=== PATIENT | male | born 1970 | race Two or more races ===

== ENCOUNTER → 2021-10-16 13:47 | Outpatient (REF) | payer OTHER, SELFPAY | LOC: HO.SL 13:47 | PROVIDERS: PCP Nurse Practitioner Family; Visit Provider Nurse Practitioner Family | DX: G47.30 Sleep apnea, unspecified (principal) | CPT/HCPCS: 95806 ==

== ENCOUNTER 2021-10-28 09:29 | Outpatient (REF) | payer OTHER, SELFPAY ==
[2021-10-28 09:54] LABS: MANUAL DIFF FLAG NO
[2021-10-28 10:30] LABS: Basophils Absolute Auto 0.1 X10*3/uL (0.0-0.2); Basophils Percent Auto 1.2 % (0-2); Eosinophils Absolute Auto 0.4 X10*3/uL (0.0-0.4); Eosinophils Percent Auto 4.9 % (0-4); Hematocrit 51.4 % (42.0-52.0); Hemoglobin 17.7 g/dl (14.0-18.0); Imm Gran Abs Auto 0.03 X10*3/uL (0.00-0.03); Imm Gran Pct Auto 0.4 % (0.0-0.4); Lymphocytes Absolute Auto 2.3 X10*3/uL (1.2-4.9); Mean Corpuscular HGB Conc 34.4 g/dl (31.0-36.0); Mean Corpuscular Hemoglobin 32.5 pg (27.0-33.0); Mean Corpuscular Volume 94.5 fL (80.0-98.0); Mean Platelet Volume 10.5 fL (9.4-12.4); Monocytes Absolute Auto 0.6 X10*3/uL (0.1-1.2); Monocytes Percent Auto 8.3 % (2-11); Neutrophils Absolute Auto 4.2 x10*3/uL (2.0-8.3); Neutrophils Percent Auto 55.2 % (45-73); Platelet Count 256 X10*3/uL (160-400); Red Blood Count 5.44 X10*6/uL (4.60-5.80); Red Cell Distribution Width 12.4 % (11.0-16.0); White Blood Count 7.6 X10*3/uL (4.8-10.8)
[2021-10-28 11:04] LABS: Alanine Aminotransferase 87 U/L (0-40); Albumin Level 4.5 g/dL (3.5-5.0); Alkaline Phosphatase 56 U/L (39-117); Anion Gap 13 (12-20); Aspartate Amino Transferase 49 U/L (5-37); Bilirubin Total 1.3 mg/dL (0.0-1.0); Blood Urea Nitrogen 17 mg/dL (9-16); Calcium 9.4 mg/dL (8.4-10.2); Carbon Dioxide 30 mmol/L (22-29); Chloride 105 mmol/L (96-108); Cholesterol 199 mg/dL; Estimated Glomerular Filt Rate 51; Glucose Fasting 102 mg/dL (60-99); HDL Cholesterol 65 mg/dL; LDL Cholesterol Calculated 116 mg/dl; Potassium 4.9 mmol/L (3.3-5.1); Sodium 143 mmol/L (135-145); Total Protein 7.7 g/dL (6.5-8.0); Triglycerides 91 mg/dL
[2021-10-28 11:13] LABS: Prostate Specific Antigen Scr 0.98 ng/mL (<0.05-4.0)
[2021-10-28 11:48] LABS: Free T4 (Free Thyroxine) 0.51 ng/dL (0.71-1.85)
== END 2021-10-28 09:30 | disposition home or self-care (01) ==
LOC: HO.LAB 09:29
PROVIDERS: PCP Internal Medicine; Visit Provider Nurse Practitioner Family
DX: I10 Essential (primary) hypertension (principal); E03.9 Hypothyroidism, unspecified; E78.00 Pure hypercholesterolemia, unspecified; R94.5 Abnormal results of liver function studies; K21.9 Gastro-esophageal reflux disease without esophagitis; Z12.5 Encounter for screening for malignant neoplasm of prostate
CPT/HCPCS: 36415; 80053; 80061; 84153; 84439; 84443; 85025

== ENCOUNTER → 2021-10-30 09:56 | Outpatient (BNVA) | payer OTHER, SELFPAY | PROVIDERS: PCP Nurse Practitioner Family; Visit Provider Internal Medicine | DX: Z13.89 Encounter for screening for other disorder (principal) ==

== ENCOUNTER 2021-12-07 21:19 | Emergency (ER) | payer OTHER, SELFPAY ==
--- NOTE | ~2021-12-07 | XR_ITS ---
EXAMINATION: XR FOOT, RIGHT CLINICAL INFORMATION: Puncture wound COMPARISON: None TECHNIQUE: AP, lateral, and oblique views of the right foot. FINDINGS: The bones and soft tissues are normal. No fracture. Alignment is anatomic. Joint spaces are maintained. XR/XR foot RT 2V IMPRESSION: No radiopaque foreign body or fracture.
[2021-12-07 21:22] VITALS: BP 186/119; PULSE 100; RESP 19; TEMP 36.6; O2SAT 98; BMI 29.0
--- NOTE | 2021-12-07 21:54 | ED.WOUNDLAC ---
HPI - Wound/Laceration General Chief Complaint: Wound/Laceration Stated Complaint: stepped on nail Time Seen by Provider: 12/07/21 21:42 Source: patient Mode of arrival: ambulatory Limitations: no limitations History of Present Illness HPI narrative: 51-year-old male presents with nail puncture wound to the bottom of the right foot. Onset (ago): hour(s) (Within the hour of arrival) Extremity Location: right: foot Place: outdoors Patient tetanus UTD: No Context: accidental Associated symptoms: pain Related Data Previous Rx's Medication Instructions Recorded hydrocortisone 2.5 % topical cream 1 appl TOPICAL BID PRN #30 g 09/02/21 losartan 50 mg-hydrochlorothiazide 1 tab PO DAILY #90 tab 09/02/21 12.5 mg tablet cetirizine 10 mg tablet 10 mg PO DAILY #90 tab 10/08/21 famotidine 20 mg tablet 20 mg PO DAILY #90 tab 10/08/21 metoprolol tartrate 100 mg tablet 100 mg PO BID 90 Days #180 tab 10/13/21 levothyroxine 125 mcg capsule 125 mcg PO DAILY #30 cap 12/01/21 levofloxacin 750 mg tablet 750 mg PO Q24H 6 Days #6 tab 12/07/21 Allergies Allergy/AdvReac Type Severity Reaction Status Date / Time furosemide [From Lasix] Allergy Intermediate Rash Verified 10/30/21 10:23 Review of Systems Review of Systems: Constitutional: No Fever, No Chills ENT/Mouth: No Ear Pain, No Hoarseness, No sore throat Eyes: No Eye Pain, No Swelling, No Redness, No Foreign Body Cardiovascular: No Chest Pain, No SOB Respiratory: No Cough, No Dyspnea Gastrointestinal: No Nausea, No Vomiting, No Diarrhea, No abdominal Pain Genitourinary: No Dysuria, No Hematuria Musculoskeletal: positive right foot puncture wound and pain, No Myalgias, No Joint Swelling Skin: No Skin lacerations, No rash Neuro: No Weakness, No Numbness, No Paresthesias, No Loss of Consciousness, No Dizziness, No Headache Psych: No Anxiety/Panic, No Depression Heme/Lymph: no easy bruising, no Lymphadenopathy Endocrine: No Polyuria, No Polydipsia Yes all other systems are reviewed and are negative PMFSH Past Medical History Attestation statement: The following information was validated with the patient. Source: old records reviewed Medical History HTN (hypertension) Hypothyroid Nocturnal hypoxemia Obesity (BMI 30-39.9) AMANDEEP (obstructive sleep apnea) Family History Family History Mother Breast cancer Father Heart attack CKD (chronic kidney disease) requiring chronic dialysis Brother No problems noted. Sister No problems noted. Sister No problems noted. Daughter No problems noted. Daughter No problems noted. Social History Social History Housing: House Patient Tobacco Use Status: Never used Tobacco e-Cigarette/Vaping Use: Never Used Second Hand Smoke Exposure: No Advance Directives: No Advance Directives Information Provided: No Current occupational status: employed Physical Exam Vital Signs: Vital Signs: Last Vital Signs Temp 98 F 12/07/21 21: Pulse 100 12/07/21: Resp 19 12/07/21: BP 186/119 H 12/07/21 21: Pulse Ox 98 12/07/21 21:22 BMI result Body Mass Index 29.0 Course Course Course Narrative: 51-year-old male presents with puncture wound to the plantar surface of his right foot. Puncture was a nail that went through his shoe. Will order x-rays update Tdap vaccine order EKG . QT interval is normal, will prescribe Levaquin for Pseudomonas coverage. Wound irrigated with copious amounts of normal saline, cleaned with Betadine. Patient verbalized understanding of and agrees to plan of care to discharge home. Verbalized understanding of signs and symptoms indicating need for emergent intervention MDM - Wound/Laceration MDM Narrative Medical decision making narrative: Plantar puncture wound Medical Records Attestation: I reviewed the patient's medical records. Imaging Data Foot x-ray: Attestation: I personally reviewed and interpreted this imaging study as follows: Radiologist's impression: EXAMINATION: XR FOOT, RIGHT CLINICAL INFORMATION: Puncture wound? COMPARISON: None? TECHNIQUE: AP, lateral, and oblique views of the right foot. FINDINGS: The bones and soft tissues are normal. No fracture. Alignment is anatomic. Joint spaces are maintained.? XR/XR foot RT 2V IMPRESSION: No radiopaque foreign body or fracture. ECG Data Attestation: I personally reviewed and interpreted this ECG as follows: ECG interpretation date: 12/07/21 ECG interpretation time: 22:32 Prior ECG tracings: available for review Interpretation: Vent. rate 95 BPM CA interval 144 ms QRS duration 74 ms QT/QTc 370/464 ms P-R-T axes 35 25 65 Normal sinus rhythm Normal ECG No previous ECGs available Discharge Plan Discharge Clinical Impression: Puncture wound of plantar aspect of foot Patient Disposition: Home, Self-Care Instructions: Puncture Wound in the Foot (ED) Additional Instructions: You were evaluated for a nail puncture to the bottom of your right foot. Please take Levaquin 750 mg for the next 6 days. Start this medication on 12/08/2021. We gave your 1st dose in the emergency department. We updated your Tdap vaccine today. Monitor for signs and symptoms of infection. If you notice signs and symptoms of infection please seek medical attention immediately. Thank you for choosing this emergency department for evaluation. Please follow-up with primary care physician as needed. Return to the emergency department for any new, concerning, or worsening symptoms. Prescriptions: New levofloxacin 750 mg tablet 750 mg PO Q24H 6 Days Qty: 6 0RF No Action cetirizine 10 mg tablet 10 mg PO DAILY Qty: 90 1RF famotidine 20 mg tablet 20 mg PO DAILY Qty: 90 1RF metoprolol tartrate 100 mg tablet 100 mg PO BID 90 Days Qty: 180 1RF levothyroxine 125 mcg capsule 125 mcg PO DAILY Qty: 30 0RF losartan-hydrochlorothiazide 50-12.5 mg tablet 1 tab PO DAILY Qty: 90 1RF hydrocortisone 2.5 % cream 1 appl topical BID PRN (Reason: rash) Qty: 30 0RF Interventions: ED Discharge Assessment Last Done: 12/07/21 23:15 Discharge Date/Time: 12/07/21 23:16
--- NOTE | 2021-12-07 21:57 | ECG_ITS ---
Test Reason : DIAGNOSTIC Blood Pressure : / mmHG Vent. Rate : 095 BPM Atrial Rate : 095 BPM P-R Int : 144 ms QRS Dur : 074 ms QT Int : 370 ms P-R-T Axes : 035 025 065 degrees QTc Int : 464 ms Normal sinus rhythm Normal ECG No previous ECGs available Referred By: Nevaeh Garcia Electronically Signed By:FELIPE WYNN MD
[2021-12-07] MEDS: levoFLOXacin 750 MG TABLET PO (22:53)
[2021-12-07] MEDS: Diphth,Pertus(ACell),Tet Adult 0.5 ML SYRINGE IM (22:54)
== END 2021-12-07 23:16 | disposition home or self-care (01) ==
PROVIDERS: Emergency Provider Emergency Medicine
DX: S91.331A Puncture wound without foreign body, right foot, initial encounter (principal); S90.811A Abrasion, right foot, initial encounter; Y28.9XXA Contact with unspecified sharp object, undetermined intent, initial encounter; Y93.9 Activity, unspecified; Y92.9 Unspecified place or not applicable; Y99.9 Unspecified external cause status; Z79.899 Other long term (current) drug therapy
CPT/HCPCS: 73620; 90471; 90715; 93005; 99283; 99284

== ENCOUNTER 2022-01-02 10:59 | Outpatient (REF) | payer OTHER, SELFPAY ==
[2022-01-02 12:33] LABS: Alanine Aminotransferase 71 U/L (0-40); Albumin Level 4.1 g/dL (3.5-5.0); Alkaline Phosphatase 46 U/L (39-117); Aspartate Amino Transferase 41 U/L (5-37); Bilirubin Direct 0.4 mg/dL (0.0-0.5); Bilirubin Total 1.1 mg/dL (0.0-1.0); Gamma Glutamyl Transpeptidase 74 U/L (11-51); Total Protein 7.2 g/dL (6.5-8.0)
[2022-01-02 12:51] LABS: HBS Num1 1.22 mIU/mL (0-7.99); HBc Num1 0.07 S/CO (0.00-0.79); HBsAGNum1 0.19 S/CO (0.00-0.99); Hepatitis A Antibody IgM 0.12 Index (0-0.79); Hepatitis B Core Antibody Nonreactive (Nonreactive); Hepatitis B Surface Antigen Negative (Negative); ~Hepatitis A Antibody IgM Nonreactive (Nonreactive); ~Hepatitis B Surface Antibody NONREACTIVE (Nonreactive); ~Hepatitis C Antibody Nonreactive (Nonreactive)
[2022-01-02 12:54] LABS: Thyroid Stimulating Hormone 4.48 uIU/mL (0.32-4.0)
== END 2022-01-02 11:00 | disposition home or self-care (01) ==
LOC: HO.LAB 10:59
PROVIDERS: Absent Provider Internal Medicine; PCP Internal Medicine; Visit Provider Nurse Practitioner Family
DX: E03.9 Hypothyroidism, unspecified (principal); R79.89 Other specified abnormal findings of blood chemistry
CPT/HCPCS: 36415; 80076; 82977; 84443; 86704; 86706; 86709; 86803; 87340

== ENCOUNTER 2022-03-10 17:17 | Outpatient (REF) | payer OTHER, SELFPAY ==
[2022-03-10 18:37] LABS: Thyroid Stimulating Hormone 2.49 uIU/mL (0.32-4.0)
== END 2022-03-10 17:18 | disposition home or self-care (01) ==
LOC: HO.LAB 17:17
PROVIDERS: PCP Internal Medicine; Visit Provider Internal Medicine
DX: E03.9 Hypothyroidism, unspecified (principal)
CPT/HCPCS: 36415; 84443; 87086

== ENCOUNTER 2022-03-31 07:50 | Outpatient (REF) | payer OTHER, SELFPAY ==
--- NOTE | ~2022-03-31 | US_ITS ---
EXAMINATION: US ABDOMEN LIMITED CLINICAL INFORMATION: Elevated LFTs. COMPARISON: US retroperitoneal complete (renal) 11/27/2019. US retroperitoneal limited (renal only) 08/18/2019. CT abdomen and pelvis 09/02/2015. TECHNIQUE: Real-time imaging of the right upper quadrant abdominal viscera. FINDINGS: PANCREAS: Normal. LIVER: The liver is normal in size. The liver contour is normal. The liver echotexture is increased. No focal hepatic lesion. There is no intrahepatic biliary duct dilatation seen. GALLBLADDER: Surgically absent. COMMON BILE DUCT: Normal in caliber measuring 0.3 cm in diameter. RIGHT KIDNEY: There is a 2.9 x 1.9 x 2.7 cm cyst in the upper pole. There is a 5 mm adjacent echogenic focus questionable for cyst wall calcification or milk of calcium cyst. No hydronephrosis. The kidney measures 11.6 cm in maximum dimension. FREE FLUID: None. US/US abdomen limited IMPRESSION: Echogenic liver. Differential would include fatty infiltration and hepatocellular disease. When compared with prior CT, this probably represents fatty infiltration. 2.9 x 1.9 x 2.7 cm right renal cyst.
== END 2022-03-31 07:51 | disposition home or self-care (01) ==
LOC: HO.US 07:50
PROVIDERS: Visit Provider Nurse Practitioner Family
DX: R79.89 Other specified abnormal findings of blood chemistry (principal)
CPT/HCPCS: 76705

== ENCOUNTER 2022-04-30 09:38 | Outpatient (REF) | payer OTHER, SELFPAY ==
--- NOTE | ~2022-04-30 | US_ITS ---
EXAMINATION: US RETROPERITONEAL COMPLETE (RENAL) CLINICAL INFORMATION: Neoplasm of unspecified behavior of bladder. COMPARISON: Ultrasound abdomen limited 03/31/2022. Ultrasound retroperitoneal complete (renal) 11/27/2019. TECHNIQUE: Real-time imaging of the kidneys and bladder. FINDINGS: RIGHT KIDNEY: 12.1 x 6.2 x 6.3 cm (SAG x AP x TRV). The kidney is normal in size, contour, and echogenicity. Renal cortical thickness is normal. There is a 2.5 x 2.2 x 2.7 cm cyst in the upper pole with peripheral calcification versus milk of calcium. No renal calculi or hydronephrosis. LEFT KIDNEY: 11.9 x 5.0 x 5.1 cm (SAG x AP x TRV). The kidney is normal in size, contour, and echogenicity. Renal cortical thickness is normal. There is a 2.9 x 2.1 x 2.4 cm simple cyst exophytic to the upper pole. There is a 2.3 x 1.5 x 1.9 cm cyst lower pole. There is a 2.7 x 1.5 x 3.1 cm bilobed cyst with single thin septation versus 2 adjacent cysts in the midpole. This has peripheral calcification again questionable for wall calcification versus milk of calcium. No renal calculi or hydronephrosis. BLADDER: Well distended and normal. Bilateral ureteral jets are demonstrated. Prevoid bladder volume is 322 mL. Postvoid bladder volume is 52 mL. ADDITIONAL FINDINGS: The prostate gland measures 3.8 x 4.6 4.2 cm, volume 38 mL. US/US retroperitoneal comp IMPRESSION: Bilateral renal cysts not appreciably changed from November 2019. Hydronephrosis is no longer seen. No bladder mass or wall thickening appreciated. Small 52 mL post void bladder. Enlarged prostate gland..
== END 2022-04-30 09:39 | disposition home or self-care (01) ==
LOC: HO.US 09:38
PROVIDERS: PCP Internal Medicine; Visit Provider Nurse Practitioner Family
DX: D49.4 Neoplasm of unspecified behavior of bladder (principal)
CPT/HCPCS: 76770

== ENCOUNTER 2022-05-27 09:25 | Outpatient (REF) | payer OTHER, SELFPAY ==
--- NOTE | ~2022-05-27 | XR_ITS ---
EXAMINATION: XR HAND, LEFT CLINICAL INFORMATION: Pain COMPARISON: None TECHNIQUE: PA, lateral, and oblique views of the left hand. FINDINGS: Visualized portion of the distal radius and ulna demonstrate no fracture. Carpal rows are maintained. No carpal bone fracture. No metacarpal or phalangeal fracture. No appreciable degenerative changes of the left hand. No focal soft tissue swelling. No radiopaque foreign body. XR/XR hand LT min 3V IMPRESSION: Unremarkable radiographs of the left hand.
== END 2022-05-27 09:26 | disposition home or self-care (01) ==
LOC: HO.XRAY 09:25
PROVIDERS: PCP Internal Medicine; Visit Provider Nurse Practitioner Family
DX: M79.642 Pain in left hand (principal)
CPT/HCPCS: 73130

== ENCOUNTER 2022-06-08 10:09 | Outpatient (REF) | payer OTHER, SELFPAY ==
[2022-06-08 10:57] LABS: Hematocrit 47.3 % (42.0-52.0); Hemoglobin 16.6 g/dl (14.0-18.0); Mean Corpuscular HGB Conc 35.1 g/dl (31.0-36.0); Mean Corpuscular Hemoglobin 33.3 pg (27.0-33.0); Mean Corpuscular Volume 94.8 fL (80.0-98.0); Mean Platelet Volume 10.1 fL (9.4-12.4); Platelet Count 228 X10*3/uL (160-400); Red Blood Count 4.99 X10*6/uL (4.60-5.80); Red Cell Distribution Width 12.3 % (11.0-16.0); White Blood Count 7.2 X10*3/uL (4.8-10.8)
[2022-06-08 11:28] LABS: Alanine Aminotransferase 69 U/L (0-40); Albumin Level 4.3 g/dL (3.5-5.0); Alkaline Phosphatase 52 U/L (39-117); Anion Gap 18 (12-20); Aspartate Amino Transferase 47 U/L (5-37); Bilirubin Total 1.8 mg/dL (0.0-1.0); Blood Urea Nitrogen 23 mg/dL (9-16); Calcium 9.6 mg/dL (8.4-10.2); Carbon Dioxide 24 mmol/L (22-29); Chloride 105 mmol/L (96-108); Cholesterol 172 mg/dL; Estimated Glomerular Filt Rate 53; Glucose Fasting 99 mg/dL (60-99); HDL Cholesterol 48 mg/dL; LDL Cholesterol Calculated 92 mg/dl; Potassium 4.2 mmol/L (3.3-5.1); Rheumatoid Factor < 15.0 IU/mL (<15.0); Sodium 143 mmol/L (135-145); Total Protein 7.5 g/dL (6.5-8.0); Triglycerides 163 mg/dL
[2022-06-08 11:38] LABS: Prostate Specific Antigen 0.93 ng/mL (<0.05-4.0); TSH reflex Free T4 1.79 uIU/mL (0.32-4.0); Vitamin D 25-OH Total 21.1 ng/mL (>30)
[2022-06-08 12:11] LABS: Folate 15.9 ng/mL (> or = 4.0); Vitamin B12 381 pg/mL (200-900)
[2022-06-12 12:51] LABS: Anti Nuclear Antibody Screen NEGATIVE (NEGATIVE)
== END 2022-06-08 10:10 | disposition home or self-care (01) ==
LOC: HO.LAB 10:09
PROVIDERS: PCP Internal Medicine; Visit Provider Nurse Practitioner Family
DX: Z00.00 Encounter for general adult medical examination without abnormal findings (principal); Z12.5 Encounter for screening for malignant neoplasm of prostate; E03.9 Hypothyroidism, unspecified; I10 Essential (primary) hypertension; D49.4 Neoplasm of unspecified behavior of bladder; M79.642 Pain in left hand
CPT/HCPCS: 36415; 80053; 80061; 82306; 82607; 82746; 84153; 84443; 85027; 86038; 86039; 86431

== ENCOUNTER 2022-08-21 11:35 | Outpatient (REF) | payer OTHER, SELFPAY ==
[2022-08-21 14:44] LABS: Vitamin D 25-OH Total 24.3 ng/mL (>30)
[2022-08-29 13:23] LABS: Testosterone, Free 106.3 pg/mL (35.0-155.0); Testosterone, Total 754 ng/dL (250-1100)
== END 2022-08-21 11:36 | disposition home or self-care (01) ==
LOC: HO.10HDL 11:35
PROVIDERS: Nurse Practitioner Family; PCP Internal Medicine; Visit Provider Urology
DX: N52.9 Male erectile dysfunction, unspecified (principal); R79.89 Other specified abnormal findings of blood chemistry; R68.82 Decreased libido; Z79.899 Other long term (current) drug therapy; Z85.51 Personal history of malignant neoplasm of bladder; Z86.03 Personal history of neoplasm of uncertain behavior; Z98.890 Other specified postprocedural states
CPT/HCPCS: 36415; 51798; 82306; 84402; 84403

== ENCOUNTER 2022-09-10 10:00 | Outpatient (RCR) | payer OTHER, SELFPAY ==
--- NOTE | 2022-08-26 12:02 | MHC.OT.EP ---
[address] [phone] Occupational Therapy Plan of Care Date of Evaluation: 08/25/22 Diagnosis: Left hand pain Pain Location: 2-4 Left thumb and digit 2-4 PIPjs Pain Score: 4 Pain Scale Used: Numeric (0 - 10) Aggravating Factors: Gripping. Alleviating Factors: Heat, [place] Assessment: Pt is a 52 yo male with worsening left hand pain and left thumb locking since this past June. Pt also with a ho RA and right trigger thumb previously improved after injected in 2019 Today pt presents with complaint of pain at left thumb and digit 2-4 PIPjt pain. 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 No thumb trigger noted this am. Pt will benefit from OT to improve hand pain , strength and function as well as education on self care for RA. 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 Thank you once again for your referral.
== END 2022-10-22 14:17 | disposition home or self-care (01) ==
LOC: HO.OT 10:00
PROVIDERS: PCP Internal Medicine; Visit Provider Internal Medicine
DX: M79.642 Pain in left hand (principal)
CPT/HCPCS: 29125; 97035; 97110; 97166; 97535; 97760

== ENCOUNTER 2022-10-02 09:42 | Outpatient (REF) | payer OTHER, SELFPAY ==
--- NOTE | ~2022-10-02 | XR_ITS ---
EXAMINATION: XR SHOULDER, RIGHT CLINICAL INFORMATION: Pain in the right shoulder COMPARISON: None TECHNIQUE: AP external rotation, Grashey, scapular Y, and axillary views of the right shoulder. FINDINGS: The bones and soft tissues are normal. No fracture. Glenohumeral and acromioclavicular alignment is anatomic with normal joint space. No abnormal soft tissue calcifications. XR/XR shoulder RT min 2V IMPRESSION: Normal right shoulder.
--- NOTE | ~2022-10-02 | XR_ITS ---
EXAMINATION: XR SHOULDER, LEFT CLINICAL INFORMATION: Pain in the left shoulder COMPARISON: None TECHNIQUE: AP external rotation, Grashey, scapular Y, and axillary views of the left shoulder. FINDINGS: There is no evidence of fracture or dislocation. There are mild degenerative changes in the left acromioclavicular joint. Glenohumeral joint is preserved. There is soft tissue calcification seen projecting over left axilla. There is incidental findings of atelectasis in the left lower lobe XR/XR shoulder LT min 2V IMPRESSION: Mild degenerative changes in the left acromioclavicular joint. Soft tissue calcification in the left insula and atelectasis in the left lower lobe
--- NOTE | ~2022-10-02 | XR_ITS ---
EXAMINATION: XR CERVICAL SPINE CLINICAL INFORMATION: Neck pain COMPARISON: None TECHNIQUE: 3 views of the cervical spine were obtained. FINDINGS: There is straightening of cervical lordosis with narrowing of C4-C5 and more prominent C5-C6 and C6-C7. Soft tissues unremarkable. Pedicles are preserved. XR/XR cervical spine 2V IMPRESSION: Changes of osteoarthritis and distal level of C4-C7 with straightening of cervical lordosis
== END 2022-10-02 09:43 | disposition home or self-care (01) ==
LOC: HO.XRAY 09:42
PROVIDERS: PCP Internal Medicine; Visit Provider Nurse Practitioner Family
DX: M25.511 Pain in right shoulder (principal); M25.512 Pain in left shoulder; M54.2 Cervicalgia
CPT/HCPCS: 72040; 73030

== ENCOUNTER → 2022-10-05 15:09 | Outpatient (BNVA) | payer OTHER, SELFPAY | PROVIDERS: PCP Internal Medicine; Visit Provider Urology | DX: Z12.5 Encounter for screening for malignant neoplasm of prostate (principal); N40.0 Benign prostatic hyperplasia without lower urinary tract symptoms; Z85.51 Personal history of malignant neoplasm of bladder | CPT/HCPCS: 52000 ==

== ENCOUNTER 2022-10-28 07:43 | Outpatient (REF) | payer OTHER, SELFPAY | END 2022-10-28 07:44 | disposition home or self-care (01) | LOC: HO.CT 07:43 | PROVIDERS: PCP Internal Medicine; Visit Provider Urology | DX: Z13.89 Encounter for screening for other disorder (principal) ==

== ENCOUNTER 2022-11-19 08:59 | Outpatient (REF) | payer OTHER, SELFPAY ==
[2022-11-19 11:13] LABS: Vitamin D 25-OH Total 36.2 ng/mL (>30)
[2022-11-28 01:13] LABS: PSA, Ultra Sensitive 0.86 ng/mL
== END 2022-11-19 09:00 | disposition home or self-care (01) ==
LOC: HO.LAB 08:59
PROVIDERS: Nurse Practitioner Family; PCP Internal Medicine; Visit Provider Urology
DX: Z12.5 Encounter for screening for malignant neoplasm of prostate (principal); N40.1 Benign prostatic hyperplasia with lower urinary tract symptoms; E55.9 Vitamin D deficiency, unspecified
CPT/HCPCS: 36415; 82306; 84153

== ENCOUNTER 2022-12-14 16:10 | Outpatient (REF) | payer OTHER, SELFPAY ==
[2022-12-14 17:49] LABS: Thyroid Stimulating Hormone 2.73 uIU/mL (0.32-4.0)
== END 2022-12-14 16:11 | disposition home or self-care (01) ==
LOC: HO.LAB 16:10
PROVIDERS: PCP Internal Medicine; Visit Provider Internal Medicine
DX: E03.9 Hypothyroidism, unspecified (principal)
CPT/HCPCS: 36415; 84443

== ENCOUNTER → 2022-12-31 08:18 | Outpatient (BNVA) | payer OTHER, SELFPAY | PROVIDERS: PCP Internal Medicine; Visit Provider Urology ==

== ENCOUNTER 2022-12-31 12:00 | Outpatient (RCR) | payer OTHER, SELFPAY ==
--- NOTE | 2022-11-20 10:05 | MHC.PT.EP ---
[facility] [place] Office [place] Office [place] Office [address] [phone] F: [phone] F: [phone] F: [phone] F: [phone] Physical Therapy Plan of Care Date of Evaluation: Date of Surgery: N/A Diagnosis: cervicalgia (RC) Assessment: pt is a 52 y/o male presenting to physical therapy w/ referring diagnosis of cervicalgia. His signs and symptoms are potentially consistent w/ TOS vs. cervical radiculopathy vs. poor habitual posturing and muscle imbalance. Will continue to monitor and treat and refer as appropriate. Impairments include pain, decreased range of motion, decreased strength, impaired functional mobility, impaired postural awareness, and altered ambulation mechanics. pt is a good candidate for skilled PT due to age, potential remediation of impairments, typical disease/condition progression and prognosis, comorbidities, and motivation. pt would benefit from skilled PT intervention to provide a tailored strengthening and stretching exercise program, functional training, gait training, postural re-training, neuromuscular re-education, modalities as needed for pain, equipment safety demonstration. Frequency and Duration: The patient will be seen 2x/wk for 4 wks Short Term Goals: pt will be I w/ HEP to promote self-management of condition. pt will improve B cervical rotation by 10 degrees to promote ease in head turning w/ driving for safety. pt will demo proper sitting posture w/ lumbar roll to promote neutral spine w/ seated work related activities. Utilization Supervisor Goals: pt will improve L functional ER to at least C5 to promote ease in upper body ADLs. pt will improve B shoulder flexion and abduction strength to 5/5 to promote ease in laundry. pt will report a statistically significant improvement in self-reported outcome measure, NDI, to promote return to PLOF. Treatment Plan: Modalities to reduce pain, spasms and effusion. Manual therapy to restore motion and function. Therapeutic exercise to improve strength and flexibility. Neuromuscular re-education for posture and balance. Therapeutic activities to return to functional activities of daily living. Electronically signed by: Namrata Mclean PT, DPT Please sign and return to therapist. Thank you for your referral.
--- NOTE | 2022-12-31 13:06 | MHC.PT.DC ---
[facility] [place] Office [place] Office [place] Office [address] Javad Del Castillo [address] [phone] F: [phone] F: [phone] F: [phone] F: [phone] Physical Therapy Discharge Report Diagnosis: cervicalgia (RC) Date of Surgery: N/A Date of Evaluation: 11/20/22 Date of Discharge: 12/31/22 Treatments to Date: 9 Cancellations to Date: 4 No Shows to Date: 0 Discharge Status: Improved Function Independent with HEP Discharge Summary: The patient overall reported minimal improvement with physical therapy intervention at this time. He has had fair compliance with attendance and recommendations from this therapist. The musculature around his neck has improved in tissue extensibility and the swelling to bilateral supraclavicular regions is slightly better. His home exercise program was reviewed and he is independent at this time. He will continue with his home exercise program at this time. He is discharged from this physical therapy plan of care. Electronically signed by: Namrata Cates PT, DPT Please sign and return to therapist. Thank you for your referral.
== END 2022-12-31 13:06 | disposition home or self-care (01) ==
LOC: HO.PT 12:00
PROVIDERS: PCP Internal Medicine; Visit Provider Nurse Practitioner Family
DX: M54.2 Cervicalgia (principal)
CPT/HCPCS: 97110; 97140; 97162

== ENCOUNTER 2023-06-01 09:32 | Outpatient (AMB) | payer OTHER, SELFPAY ==
[2023-06-01 09:36] VITALS: BP 126/68; PULSE 90; O2SAT 97
--- NOTE | 2023-06-01 09:36 | MHC.PC.OV ---
Vital Signs 06/01/23 09:36 Height 5 ft 10 in Weight 209 lb 0.4 oz BMI 30.0 BP 126/68 Blood Pressure Location Lt brachial Position Sitting Pulse 90 Pulse Source Pulse Oximeter Pulse Oximetry (%) 97 Oxygen Delivery Method Room Air Intake Visit Reasons: Annual Exam Intake Note: Patient is here today for a physical. 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 Allergies Penicillins Allergy (Severe, Verified 06/01/23 09:46) Anaphylaxis furosemide [From Lasix] Allergy (Intermediate, Verified 06/01/23 09:46) hive Medication List - Last Reconciled 06/01/23 by EUSEBIO Abdullahi acetaminophen 1,000 mg (2 x 500 mg) PO Q6H PRN 30 days amlodipine 5 mg PO DAILY cetirizine 10 mg PO DAILY cyclobenzaprine 10 mg PO BEDTIME levothyroxine 137 mcg PO DAILY 90 days losartan-hydrochlorothiazide 100-12.5 mg 1 tab PO DAILY 90 days meloxicam 15 mg PO DAILY metoprolol tartrate 100 mg PO BID 90 days omeprazole 20 mg PO DAILY oxybutynin chloride ER 10 mg PO DAILY tadalafil (Cialis) 5 mg PO DAILY 90 days Tobacco use date assessed: 06/01/23 Dental Screening Dental Screen Date: 06/01/23 Did you have a dental visit in the last 12 months?: No Did you have a dental problem in the last 6 months where you did not have access to dental care?: No HPI Annual Exam HPI Details Patient is a 53-year-old male who presents today for physical exam. Patient of Dr. Briones. Medical history significant for obesity, AMANDEEP-not on CPAP, hypothyroidism, GERD, hypertension, BPH-followed by [facility]. Patient reports that he is compliant with medications and denies side effects. Patient is due for dental and eye exams, he will call. Colonoscopy 2020 with polyps and repeat in 5 years per patient. Denies shortness of breath or chest pain. Patient was encouraged to complete blood work that was ordered by his PCP. [facility] Medical History Rash Hypothyroid HTN (hypertension) Nocturnal hypoxemia AMANDEEP (obstructive sleep apnea) Obesity (BMI 30-39.9) Encounter to establish care Surgical History H/O transurethral resection of bladder tumor (TURBT) History of colonoscopy Family History Mother Breast cancer Father Heart attack CKD (chronic kidney disease) requiring chronic dialysis Brother No problems noted. Sister No problems noted. Sister No problems noted. Daughter No problems noted. Daughter No problems noted. Social History Housing: House Patient Tobacco Use Status: Never used Tobacco e-Cigarette/Vaping Use: Never Used Second Hand Smoke Exposure: No Current occupational status: employed Cognitive needs: No Hearing needs: No Vision needs: No Questionnaire PHQ-9 Over the last 2 weeks, how often have you been bothered by any of the following problems? 1. Little interest or pleasure in doing things: not at all 2. Feeling down, depressed, or hopeless: not at all 3. Trouble falling or staying asleep, or sleeping too much: not at all 4. Feeling tired or having little energy: not at all 5. Poor appetite or overeating: not at all 6. Feeling bad about yourself - or that you are a failure or have let yourself or your family down: not at all 7. Trouble concentrating on things, such as reading the newspaper or watching television: not at all 8. Moving or speaking so slowly that other people could have noticed. Or the opposite - being so fidgety or restless that you have been moving around a lot more than usual: not at all 9. Thoughts that you would be better off or of hurting yourself in some way: not at all Total score: 0 Depression Screening Interpretation: Negative Depression Screening Done: Yes 80626 - PHQ-9 Billing: Yes Source: Developed by Drs. Everton Robledo, Dee Suh, Jaison Rain and colleagues, with an educational roland from [employer]. Thrive Questionnaire Date Thrive assessed: 10/15/22 AUDIT C Alcohol Use Questionnaire (AUDIT-C) 1. How often do you have a drink containing alcohol?: Never 2. How many drinks containing alcohol do you have on a typical day when you are drinking?: 1 or 2 3. How often do you have six or more drinks on one occasion?: Never Total Score: 0 Score Reviewed/Action Taken: No DEMETRIUS-7 AMB Questionnaire DEMETRIUS-7 Date DEMETRIUS - 7 assessed: 06/01/23 Feeling nervous, anxious, or on edge: 0 = Not at all Not being able to stop or control worryin = Not at all Worrying too much about different things: 0 = Not at all Trouble relaxin = Not at all Being so restless that it is hard to sit still: 0 = Not at all Becoming easily annoyed or irritable: 0 = Not at all Feeling afraid as if something awful might happen: 0 = Not at all Total DEMETRIUS-7 score (0-4 normal; 5-9 mild; 10-14 moderate; 15-21 severe): 0 Source: Developed by Drs. Everton Robledo, Dee Suh, Jaison Rain and colleagues, with an educational roland from [employer]. DEMETRIUS-7 Assessment Billing DEMETRIUS-7 Assessment Tool: DEMETRIUS-7 Assessment 45152 Review of Systems Const Denies body aches, Denies chills, Denies fever(s) and Denies headache(s) Eyes Denies change in vision ENT Denies dizziness, Denies otalgia, Denies headache(s), Denies nasal discharge, Denies sinus pain and Denies sore throat Card Denies chest pain, Denies edema, Denies lightheadedness and Denies dyspnea Resp Denies dyspnea and Denies wheezing GI Denies abdominal pain, Denies constipation, Denies diarrhea, Denies nausea and Denies vomiting Denies dysuria Musc Denies myalgias Skin/Breast Denies rash Neuro Denies dizziness and Denies headache(s) Aller/Immun Denies wheezing Physical exam (Primary Care) Vital Signs: Last Vital Signs Pulse 90 06/01/23 09:36 BP 126/68 06/01/23 09:36 Pulse Ox 97 06/01/23 09:36 Oxygen Delivery Method Room Air 06/01/23 09:36 BMI result Body Mass Index 30.0 Tobacco/Smoking Status: Tobacco use Status Tobacco use date assessed 06/01/23 06/01/23 09:42 Patient Tobacco Use Status Never used Tobacco 06/01/23 09:42 e-Cigarette/Vaping Use Never Used 06/01/23 09:42 PHQ-9: PHQ-9 Score PHQ-9: Total score 0 06/01/23 09:42 Depression Screening Interpretation: Negative Thrive Assessment: Date of Thrive Assessment Date Thrive assessed 10/15/22 06/01/23 09:42 Const General: cooperative and no acute distress Orientation/consciousness: patient oriented x3 HENMT Head: Yes normocephalic and Yes atraumatic Ears: TM's normal bilaterally Face and sinus: Yes sinuses nontender Mouth: oropharynx normal and moist mucous membranes Throat: Yes posterior oropharynx normal Eyes General: appearance normal, both eyes and all related structures Pupils: Equal, round and reactive pupils present EOM: EOMs intact bilaterally Neck Neck: Yes normal visual inspection, Yes full ROM and Yes no lymphadenopathy Thyroid: Thyroid normal Resp Effort & Inspection: normal respiratory effort and able to speak in complete sentences Auscultation: clear to auscultation bilaterally, no crackles, no rales, no rhonchi and no wheezes Cardio Rate: regular rate Rhythm: regular rhythm Heart sounds: S1 normal heart sound present, S2 normal heart sound present and no murmurs GI Palpation (GI): Soft to palpation, not firm, nontender, no guarding, not rigid and no hepatosplenomegaly Auscultation: normal bowel sounds General: No CVA tenderness Back/Spine/Pelvis Back: No CVA tenderness Skin General skin exam: no rashes or lesions noted Neuro General: patient oriented x3 Cranial nerves: Yes Equal, round and reactive pupils present Gait exam (Neuro): Normal gait present Extrem General: Yes full ROM and No edema Assessment and Plan Assessment & Plan (1) BPH loc w urin obs/LUTS: Code(s): N40.1 - Benign prostatic hyperplasia with lower urinary tract symptoms Plan: Continue to follow-up with [facility] On oxybutynin (2) Adult general medical exam: Code(s): Z00.00 - Encounter for general adult medical examination without abnormal findings Plan: Patient was encouraged to complete blood work (3) Essential hypertension: Code(s): I10 - Essential (primary) hypertension Plan: Goal BP equal or less than 140/90 Continue metoprolol, losartan-hydrochlorothiazide, amlodipine Low-sodium diet (4) GERD (gastroesophageal reflux disease): Code(s): K21.9 - Gastro-esophageal reflux disease without esophagitis Plan: Continue omeprazole (5) Obesity (BMI 30-39.9): Comment: HE IS SLIGHTLY OVERWEIGHT BUT, DOES HAVE MODERATE ABDOMINAL OBESITY. I TOLD HIM THAT IT WILL BE GOOD FOR HIM TO LOSE ABOUT 10-15 LB OF WEIGHT. Code(s): E66.9 - Obesity, unspecified Plan: Healthy food choices and exercise as tolerated Plan Follow-up with PCP in 4 months Medications: Refilled metoprolol tartrate 100 mg PO BID 90 days 180 tabs 1RF omeprazole 20 mg PO DAILY 90 caps 3RF Coding Level of Care Code Est Pt Prev Care 40-64y(29853) Diagnoses BPH loc w urin obs/LUTS N40.1 Adult general medical exam Z00.00 Essential hypertension I10 GERD (gastroesophageal reflux disease) K21.9 Obesity (BMI 30-39.9) E66.9 Additional Codes DEMETRIUS-7 Assessment Billing - DEMETRIUS-7 Assessment Tool: DEMETRIUS-7 Assessment 72036 ([id number])
== END 2023-06-01 09:58 | disposition home or self-care (01) ==
PROVIDERS: Visit Provider Nurse Practitioner Family
DX: Z00.00 Encounter for general adult medical examination without abnormal findings (principal); N40.1 Benign prostatic hyperplasia with lower urinary tract symptoms; I10 Essential (primary) hypertension; K21.9 Gastro-esophageal reflux disease without esophagitis
CPT/HCPCS: 99396

== ENCOUNTER 2023-08-30 10:43 | Outpatient (REF) | payer OTHER, SELFPAY ==
[2023-08-30 12:19] LABS: Erythrocyte Sedimentation Rate 1 MM/HR (0-15)
[2023-08-30 12:41] LABS: Alanine Aminotransferase 65 U/L (0-40); Albumin Level 4.2 g/dL (3.5-5.0); Alkaline Phosphatase 63 U/L (39-117); Anion Gap 12 (12-20); Aspartate Amino Transferase 45 U/L (5-37); Bilirubin Total 1.1 mg/dL (0.0-1.0); Blood Urea Nitrogen 17 mg/dL (9-16); Calcium 9.5 mg/dL (8.4-10.2); Carbon Dioxide 28 mmol/L (22-29); Chloride 107 mmol/L (96-108); Cholesterol 173 mg/dL (<200); Estimated Glomerular Filt Rate 60; Glucose Fasting 103 mg/dL (60-99); HDL Cholesterol 61 mg/dL (>40); LDL Cholesterol Calculated 98 mg/dL (<100); Potassium 4.2 mmol/L (3.3-5.1); Sodium 143 mmol/L (135-145); Total Protein 7.8 g/dL (6.5-8.0); Triglycerides 72 mg/dL (<150)
[2023-08-30 13:17] LABS: Vitamin D 25-OH Total 21.9 ng/mL (>30)
== END 2023-08-30 10:44 | disposition home or self-care (01) ==
LOC: HO.LAB 10:43
PROVIDERS: PCP Internal Medicine; Visit Provider Internal Medicine
DX: E55.9 Vitamin D deficiency, unspecified (principal); M06.9 Rheumatoid arthritis, unspecified; E78.5 Hyperlipidemia, unspecified
CPT/HCPCS: 36415; 80053; 80061; 82306; 85652

== ENCOUNTER 2023-10-01 10:03 | Outpatient (REF) | payer OTHER, SELFPAY ==
--- NOTE | ~2023-10-01 | US_ITS ---
EXAMINATION: US RETROPERITONEAL COMPLETE (RENAL) CLINICAL INFORMATION: Personal history of malignant neoplasm of bladder. COMPARISON: Ultrasound kidneys and bladder 04/30/2022. Ultrasound abdomen limited 03/31/2022. TECHNIQUE: Real-time imaging of the kidneys and bladder. FINDINGS: RIGHT KIDNEY: 11.4 x 6.3 x 5.2 cm (SAG x AP x TRV). The kidney is normal in size, contour, and echogenicity. Renal cortical thickness is normal. No renal calculi or hydronephrosis. There is 2.3 x 1.9 x 2.3 cm cyst with calcifications in the lower pole and there is fullness of collecting system. LEFT KIDNEY: 10.8 x 5.2 x 4.9 cm (SAG x AP x TRV). The kidney is normal in size, contour, and echogenicity. Renal cortical thickness is normal. No renal calculi or hydronephrosis. Multiple cortical cysts present with the largest in the upper pole measured 2.6 x 1.5 x 2.2 cm with caliectasis. BLADDER: Well distended and normal. Left ureteral jet is demonstrated; right is not. Prevoid bladder volume is 213.4 mL. Postvoid bladder volume is 87.0 mL. ADDITIONAL FINDINGS: A volume of prostate measured 51 mL US/US retroperitoneal comp IMPRESSION: 1. Bilateral renal cysts. 2. Large post void residual.
== END 2023-10-01 10:04 | disposition home or self-care (01) ==
LOC: HO.US 10:03
PROVIDERS: PCP Internal Medicine; Visit Provider Urology
DX: Z85.51 Personal history of malignant neoplasm of bladder (principal)
CPT/HCPCS: 76770

== ENCOUNTER 2023-10-11 10:56 | Outpatient (AMB) | payer OTHER, SELFPAY ==
[2023-10-11 11:08] VITALS: BP 130/80; BMI 29.4
--- NOTE | 2023-10-11 11:08 | A.OFFPC_ITS ---
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 Accompanied by: Self / Same As Patient Allergies Penicillins Allergy (Severe, Verified 10/11/23 11:31) Anaphylaxis furosemide [From Lasix] Allergy (Intermediate, Verified 10/11/23 11:31) hive Medication List - Last Reconciled 10/11/23 by Eugenia Sparrow MD acetaminophen 1,000 mg (2 x 500 mg) PO Q6H PRN 30 days amlodipine 5 mg PO DAILY cetirizine 10 mg PO DAILY cyclobenzaprine 10 mg PO BEDTIME levothyroxine 137 mcg PO DAILY 90 days losartan-hydrochlorothiazide 100-12.5 mg 1 tab PO DAILY 90 days meloxicam 15 mg PO DAILY metoprolol tartrate 100 mg PO BID 90 days omeprazole 20 mg PO DAILY oxybutynin chloride ER 10 mg PO DAILY tadalafil (Cialis) 5 mg PO DAILY 90 days Tobacco use date assessed: 10/11/23 Dental Screening Dental Screen Date: 10/11/23 Did you have a dental visit in the last 12 months?: No Did you have a dental problem in the last 6 months where you did not have access to dental care?: No Was dental information given to patient?: Patient has dentist HPI HPI Comments History of Present Illness Details This is a 53-year-old male with hypertension, GERD, hypothyroidism, chronic neck pain and low vitamin-D that comes today for follow-up on his condi tions. Blood pressure stable. GERD stable with PPIs as needed. Last TSH was normal. Has chronic neck pain mildly relieved by meloxicam as needed. Vitamin- D low and supplements will start. No chest pain or shortness of breath. Compliant with medications. [facility] Medical History Rash Hypothyroid HTN (hypertension) Nocturnal hypoxemia AMANDEEP (obstructive sleep apnea) Obesity (BMI 30-39.9) Encounter to establish care Surgical History H/O transurethral resection of bladder tumor (TURBT) History of colonoscopy Family History Mother Breast cancer Father Heart attack CKD (chronic kidney disease) requiring chronic dialysis Brother No problems noted. Sister No problems noted. Sister No problems noted. Daughter No problems noted. Daughter No problems noted. Social History Housing: House Alcohol intake: current Alcohol intake frequency: holidays/special occasions only Alcohol type: wine Patient Tobacco Use Status: Never used Tobacco e-Cigarette/Vaping Use: Never Used Second Hand Smoke Exposure: No service: No Current occupational status: employed Current occupational exposures/hazards: No Cognitive needs: No Hearing needs: No Vision needs: No Questionnaire PHQ-9 Over the last 2 weeks, how often have you been bothered by any of the following problems? 1. Little interest or pleasure in doing things: not at all 2. Feeling down, depressed, or hopeless: not at all 3. Trouble falling or staying asleep, or sleeping too much: not at all 4. Feeling tired or having little energy: not at all 5. Poor appetite or overeating: not at all 6. Feeling bad about yourself - or that you are a failure or have let yourself or your family down: not at all 7. Trouble concentrating on things, such as reading the newspaper or watching television: not at all 8. Moving or speaking so slowly that other people could have noticed. Or the opposite - being so fidgety or restless that you have been moving around a lot more than usual: not at all 9. Thoughts that you would be better off or of hurting yourself in some way: not at all Total score: 0 Depression Screening Interpretation: Negative Depression Screening Done: Yes 01701 - PHQ-9 Billing: Yes Source: Developed by Drs. Everton Robledo, Dee Suh, Jaison Rain and colleagues, with an educational roland from [email or web address]. Thrive Questionnaire Date Thrive assessed: 10/11/23 I am a: Patient What is your living situation today?: I have a steady place to live Within the past 12 months, did the food you bought not last and you didn't have the money to get more?: Never true Within the past 12 months, did you worry whether your food would run out before you got money to buy more?: Never true Do you have trouble paying for medicines?: No Do you have trouble getting transportation to medical appointments?: No Do you have trouble paying your heating and electricity bill?: No Do you have trouble taking care of your child, family member or friend?: No Do you have trouble with day-to-day activities such as bathing, preparing meals, shopping, managing finances, etc.?: No Are you currently unemployed and looking for a job?: No Are you interested in more education?: No Please select the resources that you would like help with: None Currently or been in a relationship where the following occur: no concerns reported THRIVE Score: 0 AUDIT C Alcohol Use Questionnaire (AUDIT-C) 1. How often do you have a drink containing alcohol?: Monthly or less 2. How many drinks containing alcohol do you have on a typical day when you are drinking?: 1 or 2 3. How often do you have six or more drinks on one occasion?: Never Total Score: 1 DEMETRIUS-7 AMB Questionnaire DEMETRIUS-7 Date DEMETRIUS - 7 assessed: 10/11/23 Feeling nervous, anxious, or on edge: 0 = Not at all Not being able to stop or control worryin = Not at all Worrying too much about different things: 0 = Not at all Trouble relaxin = Not at all Being so restless that it is hard to sit still: 0 = Not at all Becoming easily annoyed or irritable: 0 = Not at all Feeling afraid as if something awful might happen: 0 = Not at all Total DEMETRIUS-7 score (0-4 normal; 5-9 mild; 10-14 moderate; 15-21 severe): 0 Source: Developed by Drs. Everton Robledo, Dee Suh, Jaison Rain and colleagues, with an educational roland from [email or web address]. DEMETRIUS-7 Assessment Billing DEMETRIUS-7 Assessment Tool: DEMETRIUS-7 Assessment 18870 Review of Systems Const All systems reviewed & are unremarkable except as noted in HPI and below Eyes Reports no additional complaints, Denies change in vision and Denies other visual disturbances Card Denies chest pain at rest, Denies chest pain with activity, Denies edema, Denies irregular heart rhythm, Denies claudication, Denies dyspnea, Denies dyspnea on exertion, Denies orthopnea, Denies paroxysmal nocturnal dyspnea and Denies slow heart rate Resp Denies cough, Denies dyspnea and Denies dyspnea on exertion GI Denies abdominal pain, Denies change in bowel habits, Denies excessive flatus, Denies nausea and Denies vomiting Denies urinary hesitancy, Denies urinary incontinence and Denies urinary urgency Musc Denies abnormal gait, Denies atrophy, Denies deformity and Denies limited range of motion Skin/Breast Denies bleeding lesions, Denies changing lesions and Denies rash Neuro Denies abnormal gait and Denies lack of coordination Physical exam (Primary Care) Vital Signs: Last Vital Signs BP 130/80 10/11/23 11:08 BMI result Body Mass Index 29.4 Tobacco/Smoking Status: Tobacco use Status Tobacco use date assessed 10/11/23 10/11/23 11:14 Patient Tobacco Use Status Never used Tobacco 10/11/23 11:14 e-Cigarette/Vaping Use Never Used 10/11/23 11:14 PHQ-9: PHQ-9 Score PHQ-9: Total score 0 10/11/23 11:14 Depression Screening Interpretation: Negative Thrive Assessment: Date of Thrive Assessment Date Thrive assessed 10/11/23 10/11/23 11:14 Currently or been in a relationship where the following occur: no concerns reported Eyes General: appearance normal, both eyes and all related structures Eyelids: Yes eyelids normal Conjunctivae: conjunctivae normal Neck Neck: Yes normal visual inspection and Yes supple Resp Effort & Inspection: normal respiratory effort Auscultation: clear to auscultation bilaterally Cardio Jugular venous distension: no JVD Rate: regular rate Rhythm: regular rhythm Heart sounds: S1 normal heart sound present and S2 normal heart sound present Extrem General: Yes full ROM Assessment and Plan Assessment & Plan (1) Essential hypertension: Code(s): I10 - Essential (primary) hypertension Plan: Continue amlodipine. Blood pressure goal is equal or less than 130/80. (2) GERD (gastroesophageal reflux disease): Code(s): K21.9 - Gastro-esophageal reflux disease without esophagitis Plan: Continue PPIs as needed. (3) Hypothyroidism: Code(s): E03.9 - Hypothyroidism, unspecified Plan: Continue levothyroxine. (4) Chronic neck pain: Code(s): M54.2 - Cervicalgia; G89.29 - Other chronic pain Plan: Continue meloxicam as needed. (5) Low vitamin D level: Code(s): R79.89 - Other specified abnormal findings of blood chemistry Plan: Start vitamin-D supplements. Orders: Orders Lipid Panel 8 Months E78.5 - Hyperlipidemia, unspecified, I10 - Essential (primary) hypertension Vitamin D 25-OH Total 8 Months E55.9 - Vitamin D deficiency, unspecified Comprehensive [employer] Panel Fast 8 Months I10 - Essential (primary) hypertension Thyroid Stimulating Hormone 8 Months E03.9 - Hypothyroidism, unspecified Medications: New cholecalciferol (vitamin D3) 25 mcg PO DAILY 90 days 90 caps 1RF Coding Level of Care Code Est Pt Level 4 (80468) Diagnoses Essential hypertension I10 GERD (gastroesophageal reflux disease) K21.9 Hypothyroidism E03.9 Chronic neck pain M54.2; G89.29 Low vitamin D level R79.89 Additional Codes DEMETRIUS-7 Assessment Billing - DEMETRIUS-7 Assessment Tool: DEMETRIUS-7 Assessment 86749 ([id number]) Time Spent (min) 24
== END 2023-10-11 11:45 | disposition home or self-care (01) ==
PROVIDERS: PCP Internal Medicine; Visit Provider Internal Medicine
DX: I10 Essential (primary) hypertension (principal); K21.9 Gastro-esophageal reflux disease without esophagitis; E03.9 Hypothyroidism, unspecified; M54.2 Cervicalgia; G89.29 Other chronic pain; R79.89 Other specified abnormal findings of blood chemistry
CPT/HCPCS: 99214

== ENCOUNTER 2023-10-20 14:41 | Outpatient (AMB) | payer OTHER, SELFPAY ==
--- NOTE | 2023-10-20 14:45 | A.OFFVIS_ITS ---
Intake Visit Reasons: cysto/US Intake Note: Patient presents today for a CYSTOSCOPY Procedure: Meds: Oxybutynin & Cialis Allergies to Antibiotic: Penicillin Blood Thinner: None Urinalysis test clear for Cysto? YES Disposable Uro-G HD Cystoscope Cannula: Lot: [id number] Exp: 05/27/2026 Traveling Phlebotomist Required: No Accompanied by: Self / Same As Patient Allergies Penicillins Allergy (Severe, Verified 10/20/23 14:56) Anaphylaxis furosemide [From Lasix] Allergy (Intermediate, Verified 10/20/23 14:56) elyse HACKETT Comments Details: 10/20/23--Boone is a 53-year-old male is scheduled for office cysto, h/o superfical bladder cancer. I reviewed renal ultrasound 10/01/2023 is within normal limits, estimated prostate size 51 mL. He denies irritative voiding symptoms denies gross hematuria. He states that he has to push sometimes to empty. Cystoscopy - moderate trabeculations, will continue with surveillance. Review of chart: 12/31/22-- The patient has history of superficial bladder cancer. He states doing well overall. The patient states that he had an allergic reaction to IV contrast on prior CAT scan. 12/31/22- Telehealth- discussed PSA results reviewed--11/19/22--0.86. Continue yearly surveillance with cystoscopy. Renal US prior was ordered. 10/05/22--Boone is a 52 year old male patient of who presents to the office today for office cystoscopy. He was seen by RAINER [facility] as a new patient for a history of bladder cancer. Patient reports initial diagnosis of bladder cancer was approximately 2010. He states he was following up with [facility] from 2010 to 2019 however due to financial circumstances has been unable to attend follow up appointments due to a balance he has with Dr. Roman. Patient also reports at some point from [id number] [facility] and having surgery there on his ureters due to invasion of bladder tumor. At this time there are no records to be reviewed however will attempt to obtain records. When asked patient reports last cystoscopy to be in 2018 prior to covid pandemic.In discussion with the patient today regarding urological medications patient reports to be doing well on oxybutynin. He reports having some urinary urgency and frequency after many TURBTs and this medication is what works well for him. He has had multiple T URBTs. He denies intravesical bladder treatments. In review of the patient's chart retroperitoneal ultrasound (04/2022) given patients history of bladder cancer. Bilateral renal cysts not appreciably changed from 2019, no hydronephrosis, no bladder mass or wall thickening appreciated. Small post void bladder. Enlarged prostate gland. PSA level was 0.9 in June 2022.The patient is however reporting low libido and erectile dysfunction. Evaluation today: UA negative for infection and or blood. office for cystoscopy --bladder mild/mod trabeculations, and cellule changes, no suspicious bladder lesions visualized. Plan: H/O superficial TCC, OAB, monitor PVR fu in 7 weeks [facility] Medical History Rash Hypothyroid HTN (hypertension) Nocturnal hypoxemia AMANDEEP (obstructive sleep apnea) Obesity (BMI 30-39.9) Encounter to establish care Surgical History H/O transurethral resection of bladder tumor (TURBT) History of colonoscopy Family History Mother Breast cancer Father Heart attack CKD (chronic kidney disease) requiring chronic dialysis Brother No problems noted. Sister No problems noted. Sister No problems noted. Daughter No problems noted. Daughter No problems noted. Social History Housing: House Alcohol intake: current Alcohol intake frequency: holidays/special occasions only Alcohol type: wine Patient Tobacco Use Status: Never used Tobacco e-Cigarette/Vaping Use: Never Used Second Hand Smoke Exposure: No service: No Current occupational status: employed Current occupational exposures/hazards: No Cognitive needs: No Hearing needs: No Vision needs: No Office Procedures Cystoscopy Consent Discussed risk and benefit or proposed procedure with the patient. Information consent for procedure given to the patient. Discussed technical aspects, risks, benefits and alternatives in full. Addressed all of the patient's questions and concerns regarding the procedure. The patient demonstrated knowledge and understanding. They wish to proceed with this procedure. Preparation The patient was prepped in the usual manner. A law enforcement officer was present and in the room. Genitalia was prepped with betadine solution in a sterile manner. Lidocaine Jelly 2% was placed into the urethra and 16Fr flexible Olympus cystoscope was inserted into the meatus after adequate lubrication. Procedure Time out per protocol performed. Bladder Inspection Bladder Inspection: The bladder was inspected in its entirety with utilization retroflexion displaying: Trabeculation: present-moderate Mucosal Erthema: N/A Orifices: normal shape and position Urethra: normal Cystoscopy findings: prostatic urethra bilobar enlargement, bulbous urethra W[place]. [id number] DISPOSABLE SCOPE URO-G FLEXIBLE SCOPE Procedure code (CPT) selection complete Office Meds lidocaine HCl 2 % mucosal jelly in applicator Performing Provider: Edilson Sheridan MD [facility] Administered by: Phil Carreon LPN on 10/20/23 15:10 Dose Route Admin Location Dispensed Lot Number Expiration Date ND Compounding Pharmacy Technician 20 mL intra-urethral 20 mL naproxen 500 mg tablet Performing Provider: Edilson Sheridan MD Performing Location: [facility] Administered by: Phil Carreon LPN on 10/20/23 15:10 Dose Route Admin Location Dispensed Lot Number Expiration Date ND Compounding Pharmacy Technician 500 mg PO 1 tab ciprofloxacin HCl 500 mg tablet Performing Provider: Edilson Sheridan MD Performing Location: [facility] Administered by: Phil Carreon LPN on 10/20/23 15:10 Dose Route Admin Location Dispensed Lot Number Expiration Date ND Compounding Pharmacy Technician 500 mg PO 1 tab Results AMB Urinalysis, Automated UA Leukoctes 0 Kalie/uL Last Edit by JAG Ricks on 10/20/23 15:05 UA Nitrite Negative Last Edit by JAG Ricks on 10/20/23 15:05 UA Urobilinogen 0.2 mg/dL Last Edit by JAG Ricks on 10/20/23 15:0 5 UA Protein 300 mg/dL Last Edit by JAG Ricks on 10/20/23 15:05 3+ Mariel Shell 10/20/23 15:05 UA pH 6.0 Last Edit by JAG Ricks on 10/20/23 15:05 UA Blood 0 Kenyon/uL Last Edit by JAG Ricks on 10/20/23 15:05 UA Specific [place]on 1.025 Last Edit by JAG Ricks on 10/20/23 15: 05 UA Ketone Positive Last Edit by JAG Ricks on 10/20/23 15:05 5 mg/dL Mariel Shell 10/20/23 15:05 UA Bilirubin 1 mg/dL Last Edit by JAG Ricks on 10/20/23 15:05 UA Glucose 0 mg/dL Last Edit by JAG Ricks on 10/20/23 15:05 Results Reviewed Results Reviewed: Laboratory Last Values Urine pH (Auto) 6.0 10/20/23 15:00 Specific Huron (Auto) 1.025 10/20/23 15:00 Urine Protein (Auto) 300 mg/dL 10/20/23 15:00 Glucose (UA)(Auto) 0 mg/dL 10/20/23 15:00 Urine Ketones (Auto) Positive 10/20/23 15:00 Urine Blood (Auto) 0 Kenyon/uL 10/20/23 15:00 Urine Nitrite (Auto) Negative 10/20/23 15:00 Urine Bilirubin (Auto) 1 mg/dL 10/20/23 15:00 Urine Urobilinogen (Auto) 0.2 mg/dL 10/20/23 15:00 Leukocyte Esterase (Auto) 0 Kalie/uL 10/20/23 15:00 Date of Service: 10/01/23 EXAMINATION: US RETROPERITONEAL COMPLETE (RENAL) CLINICAL INFORMATION: Personal history of malignant neoplasm of bladder. COMPARISON: Ultrasound kidneys and bladder 04/30/2022. Ultrasound abdomen limited 03/31/2022. TECHNIQUE: Real-time imaging of the kidneys and bladder. FINDINGS: RIGHT KIDNEY: 11.4 x 6.3 x 5.2 cm (SAG x AP x TRV). The kidney is normal in size, contour, and echogenicity. Renal cortical thickness is normal. No renal calculi or hydronephrosis. There is 2.3 x 1.9 x 2.3 cm cyst with calcifications in the lower pole and there is fullness of collecting system. LEFT KIDNEY: 10.8 x 5.2 x 4.9 cm (SAG x AP x TRV). The kidney is normal in size, contour, and echogenicity. Renal cortical thickness is normal. No renal calculi or hydronephrosis. Multiple cortical cysts present with the largest in the upper pole measured 2.6 x 1.5 x 2.2 cm with caliectasis. BLADDER: Well distended and normal. Left ureteral jet is demonstrated; right is not. Prevoid bladder volume is 213.4 mL. Postvoid bladder volume is 87.0 mL. ADDITIONAL FINDINGS: A volume of prostate measured 51 mL IMPRESSION: 1. Bilateral renal cysts. 2. Large post void residual. Assessment & Plan Assessment & Plan (1) History of bladder cancer: Code(s): Z85.51 - Personal history of malignant neoplasm of bladder Category: Medical (2) BPH loc w urin obs/LUTS: Code(s): N40.1 - Benign prostatic hyperplasia with lower urinary tract symptoms Category: Medical (3) Screening PSA (prostate specific antigen): Code(s): Z12.5 - Encounter for screening for malignant neoplasm of prostate Category: Medical (4) OAB (overactive bladder): Code(s): N32.81 - Overactive bladder Category: Medical Plan H/O superficial TCC, OAB, monitor PVR fu in 7 weeks Orders: Orders AMB Cystoscopy 10/20/23 N40.1 - Benign prostatic hyperplasia with lower urinary tract symptoms, Z85.51 - Personal history of malignant neoplasm of bladder AMB Urinalysis Automated 10/20/23 Z13.9 - Encounter for screening, unspecified Patient Instructions: The patient had an opportunity to ask questions regarding treatment plan. All questions were answered. Imaging, Laboratory studies and physical exam results were discussed and reviewed in detail. No major barriers to understanding were identified. The patient expressed understanding and agreement with the above treatment plan. The patient is aware they should contact our office by phone for worsening of their current condition or the appearance of new symptoms. Compliance is encouraged with any medications and followup testing that is ordered. It is a privilege to be allowed the opportunity to participate in the urologic care of your patient. If you have any questions or concerns regarding treatment for the above conditions please do not hesitate to contact me. The office telephone contact is [phone]. This note is constructed in part using voice recognition software. While every effort has been made to ensure accuracy general office worker errors may have been included. Yours sincerely, Edilson Sheridan MD Coding Level of Care Code Procedure Only Diagnoses History of bladder cancer Z85.51 BPH loc w urin obs/LUTS N40.1 Screening PSA (prostate specific antigen) Z12.5 OAB (overactive bladder) N32.81 CPT Codes Cystoscopy - CPT: 63238-[id number] ([id number])
== END 2023-10-20 15:58 | disposition home or self-care (01) ==
PROVIDERS: PCP Internal Medicine; Visit Provider Urology
DX: N40.1 Benign prostatic hyperplasia with lower urinary tract symptoms (principal); N32.81 Overactive bladder; Z85.51 Personal history of malignant neoplasm of bladder; Z13.9 Encounter for screening, unspecified
CPT/HCPCS: 52000

== ENCOUNTER → 2023-10-20 14:41 | Outpatient (BNVA) | payer OTHER, SELFPAY | PROVIDERS: PCP Internal Medicine; Visit Provider Urology | DX: Z85.51 Personal history of malignant neoplasm of bladder (principal); N40.1 Benign prostatic hyperplasia with lower urinary tract symptoms; N13.8 Other obstructive and reflux uropathy; N32.81 Overactive bladder | CPT/HCPCS: 52000; 81003 ==

== ENCOUNTER 2024-08-22 08:50 | Outpatient (AMB) | payer OTHER, SELFPAY ==
--- NOTE | 2024-08-22 08:55 | MHC.PC.OV ---
Vital Signs 08/22/24 08:57 Height 5 ft 10 in Weight 204 lb BMI 29.3 BP 138/90 H Blood Pressure Location Lt brachial Position Sitting Intake Visit Reasons: annual exam Intake Note: Patient here for an annual physical exam [place] Required: Yes [place] Language: Pulper Operator Name: Eugenia Sparrow MD Information Interpreted: non-clinical & clinical Accompanied by: Self / Same As Patient Allergies Penicillins Allergy (Severe, Verified 08/22/24 09:14) Anaphylaxis furosemide [From Lasix] Allergy (Intermediate, Verified 08/22/24 09:14) hive Medication List - Last Reconciled 08/22/24 by Eugenia Sparrow MD acetaminophen 1,000 mg (2 x 500 mg) PO Q6H PRN 30 days amlodipine 5 mg PO DAILY cyclobenzaprine 10 mg PO BEDTIME levothyroxine 137 mcg PO DAILY 90 days metoprolol tartrate 100 mg PO BID 90 days omeprazole 20 mg PO DAILY oxybutynin chloride ER 10 mg PO DAILY tadalafil (Cialis) 5 mg PO DAILY 90 days Tobacco use date assessed: 08/22/24 Dental Screening Dental Screen Date: 08/22/24 Did you have a dental visit in the last 12 months?: Yes Did you have a dental problem in the last 6 months where you did not have access to dental care?: No Was dental information given to patient?: Patient has dentist HPI HPI Comments History of Present Illness Details The patient is a 54-year-old male presenting for his annual physical examination and management of a recommended colonoscopy. He has a history of bladder tumor resection and essential hypertension, which has been described as borderline during the visit. There is no indication that the patient has had a colonoscopy, though it is due this year, especially given the past mention of polyps. He has been in [place] recently and reported no significant complications related to his health. His family history is significant for breast cancer in his mother and myocardial infarction along with kidney disease in his father. The patient denies smoking and reports limited alcohol consumption, primarily wine. - Last tetanus vaccination was in 2021, next due in 2031. - Colonoscopy is recommended due to a history of polyps, pending this year. - Blood pressure is monitored; noted to be borderline. - Renal function reported as normal. - Blood sugar level recorded at 103. - Liver enzymes are slightly elevated; AST at 45, ALT at 65. - Vitamin D level slightly low; supplementation is advised. - Ultrasound of the liver planned for further assessment. [facility] Medical History (Updated 08/22/24 @ 09:33 by Eugenai Sparrow MD) Rheumatoid arthritis Rash Hypothyroid HTN (hypertension) Nocturnal hypoxemia AMANDEEP (obstructive sleep apnea) Obesity (BMI 30-39.9) Encounter to establish care Surgical History H/O transurethral resection of bladder tumor (TURBT) History of colonoscopy Family History Mother Breast cancer Father Heart attack CKD (chronic kidney disease) requiring chronic dialysis Brother No problems noted. Sister No problems noted. Sister No problems noted. Daughter No problems noted. Daughter No problems noted. Social History Housing: House Alcohol intake: current Alcohol intake frequency: a few times a month Alcohol type: wine Patient Tobacco Use Status: Never used Tobacco e-Cigarette/Vaping Use: Never Used Second Hand Smoke Exposure: No service: No Current occupational status: employed Current occupational exposures/hazards: No Cognitive needs: No Hearing needs: No Vision needs: No Questionnaire PHQ-9 Over the last 2 weeks, how often have you been bothered by any of the following problems? 1. Little interest or pleasure in doing things: several days 2. Feeling down, depressed, or hopeless: not at all 3. Trouble falling or staying asleep, or sleeping too much: nearly every day 4. Feeling tired or having little energy: nearly every day 5. Poor appetite or overeating: more than half the days 6. Feeling bad about yourself - or that you are a failure or have let yourself or your family down: not at all 7. Trouble concentrating on things, such as reading the newspaper or watching television: more than half the days 8. Moving or speaking so slowly that other people could have noticed. Or the opposite - being so fidgety or restless that you have been moving around a lot more than usual: not at all 9. Thoughts that you would be better off or of hurting yourself in some way: not at all Total score: 11 Depression Screening Interpretation: Positive Depression Screening Follow-up: Existing condition, New Medication prescribed and Follow-up Visit Requested Depression Screening Done: Yes 82057 - PHQ-9 Billing: Yes Source: Developed by Drs. Everton Robledo, Dee Suh, Jaison Rain and colleagues, with an educational roland from [employer]. Thrive Questionnaire Date Thrive assessed: 08/22/24 I am a: Patient What is your living situation today?: I have a steady place to live Within the past 12 months, did the food you bought not last and you didn't have the money to get more?: Sometimes True Within the past 12 months, did you worry whether your food would run out before you got money to buy more?: Sometimes True Do you have trouble paying for medicines?: Yes Do you have trouble getting transportation to medical appointments?: No Do you have trouble paying your heating and electricity bill?: I choose not to answer this question Do you have trouble taking care of your child, family member or friend?: No Do you have trouble with day-to-day activities such as bathing, preparing meals, shopping, managing finances, etc.?: No Are you currently unemployed and looking for a job?: No Are you interested in more education?: I choose not to answer this question Please select the resources that you would like help with: None Currently or been in a relationship where the following occur: No concerns reported THRIVE Score: 2 AUDIT C Alcohol Use Questionnaire (AUDIT-C) 1. How often do you have a drink containing alcohol?: 2-4 times a month 2. How many drinks containing alcohol do you have on a typical day when you are drinking?: 3 or 4 3. How often do you have six or more drinks on one occasion?: Never Total Score: 3 DEMETRIUS-7 AMB Questionnaire DEMETRIUS-7 Date DEMETRIUS - 7 assessed: 08/22/24 Feeling nervous, anxious, or on edge: 1 = Several days Not being able to stop or control worryin = Not at all Worrying too much about different things: 1 = Several days Trouble relaxin = Several days Being so restless that it is hard to sit still: 2 = More than half the days Becoming easily annoyed or irritable: 1 = Several days Feeling afraid as if something awful might happen: 0 = Not at all Total DEMETRIUS-7 score (0-4 normal; 5-9 mild; 10-14 moderate; 15-21 severe): 6 Source: Developed by Drs. Everton Robledo, Dee Suh, Jiason Rain and colleagues, with an educational roland from [employer]. DEMETRIUS-7 Assessment Billing DEMETRIUS-7 Assessment Tool: DEMETRIUS-7 Assessment 35403 Review of Systems Const All systems reviewed & are unremarkable except as noted in HPI and below Card Denies chest pain at rest, Denies chest pain with activity, Denies edema, Denies irregular heart rhythm, Denies claudication, Denies dyspnea, Denies dyspnea on exertion, Denies orthopnea, Denies paroxysmal nocturnal dyspnea and Denies slow heart rate Resp Denies cough, Denies dyspnea and Denies dyspnea on exertion GI Denies abdominal pain, Denies change in bowel habits, Denies excessive flatus, Denies nausea and Denies vomiting Physical exam (Primary Care) Vital Signs: Last Vital Signs BP 138/90 H 08/22/24 08:57 BMI result Body Mass Index 29.3 Tobacco/Smoking Status: Tobacco use Status Tobacco use date assessed 08/22/24 08/22/24 09:03 Patient Tobacco Use Status Never used Tobacco 08/22/24 09:03 e-Cigarette/Vaping Use Never Used 08/22/24 09:03 PHQ-9: PHQ-9 Score PHQ-9: Total score 11 08/22/24 09:21 Depression Screening Interpretation: Positive Depression Screening Follow-up: Existing condition, New Medication prescribed and Follow-up Visit Requested Thrive Assessment: Date of Thrive Assessment Date Thrive assessed 08/22/24 08/22/24 09:03 Currently or been in a relationship where the following occur: No concerns reported [facility] Head: Yes normal to inspection, Yes normocephalic and Yes atraumatic Ears: external ears normal Eyes General: appearance normal, both eyes and all related structures Eyelids: Yes eyelids normal Conjunctivae: conjunctivae normal Neck Neck: Yes normal visual inspection and Yes supple Resp Effort & Inspection: normal respiratory effort Auscultation: clear to auscultation bilaterally Cardio Jugular venous distension: no JVD Rate: regular rate Rhythm: regular rhythm Heart sounds: S1 normal heart sound present and S2 normal heart sound present GI Inspection: Yes normal to inspection Palpation (GI): Soft to palpation and nontender Auscultation: normal bowel sounds Skin General skin exam: no rashes or lesions noted Neuro General: no focal motor deficits Extrem General: Yes full ROM Psych Appearance: grossly normal Office Procedures Flu Questionnaire Does the patient have a severe egg allergy?: No Immunizations Fluarix Triv [id number] (PF) 45 mcg (15 mcg x 3)/0.5 mL IM syringe Performing Provider: Eugenia Sparrow MD [facility] Documented (not given) by: JAG Ruiz on 08/22/24 09:05 Reason Not Given: Patient Refused Coding Level of Care Code Est Pt Level 3 (46826) Est Pt Prev Care 40-64y(67992) Diagnoses Adult general medical exam Z00.00 Transaminitis R74.01 Mild major depression F32.0 Additional Codes DEMETRIUS-7 Assessment Billing - DEMETRIUS-7 Assessment Tool: DEMETRIUS-7 Assessment 36875 ([id number]) PHQ-9 - 26480 - PHQ-9 Billing: Yes ([id number]) Time Spent (min) 31 Assessment & Plan Assessment & Plan (1) Adult general medical exam: Code(s): Z00.00 - Encounter for general adult medical examination without abnormal findings Category: Medical (2) Transaminitis: Code(s): R74.01 - Elevation of levels of liver transaminase levels Category: Medical (3) Mild major depression: Code(s): F32.0 - Major depressive disorder, single episode, mild Category: Medical Plan - Address borderline hypertension with lifestyle modifications; blood pressure follow-up with nurse navigator in 3 weeks. - Plan for colonoscopy this year due to past mention of polyps; coordination in progress. - Address liver enzyme elevation with ultrasound of liver and decrease alcohol intake. - Repeat TSH test as planned. - Vitamin D supplementation recommended. - Reinforce regular exercise, targeting 30 minutes, 5 days a week. - Monitor overall renal function and repeat appropriate labs in six weeks. Patient was informed and verbally consented to the use of an ambient scribe for clinic note documentation during this visit. I discussed with the patient the importance of completing a colonoscopy this year due to previous concerns about polyps and the lack of past completion. We addressed the slightly elevated liver enzymes which could be related to alcohol intake, and an ultrasound is planned to evaluate further. I advised him to continue monitoring his blood pressure closely and to return for a follow-up with the nurse navigator to ensure better control. We discussed the low Vitamin D levels and initiated supplementation. I confirmed he can safely engage in moderate exercise, reassuring him that physical activity is beneficial. It was reiterated that the patient's overall renal function and blood sugar levels are within acceptable ranges. Orders: Orders Influenza [id number] Immunization Today Z23 - Encounter for immunization US abdomen comp w elastography Today R74.01 - Elevation of levels of liver transaminase levels Liver Panel 6 Weeks R74.01 - Elevation of levels of liver transaminase levels Thyroid Stimulating Hormone 6 Weeks E03.9 - Hypothyroidism, unspecified Referrals Gastroenterology Referral Z08 - Encounter for follow-up examination after completed treatment for malignant neoplasm, Z85.038 - Personal history of other malignant neoplasm of large intestine Medications: New cholecalciferol (vitamin D3) 25 mcg PO DAILY 90 caps 1RF 90 days fluoxetine 10 mg PO DAILY 90 tabs 0RF 90 days F32.0 - Major depressive disorder, single episode, mild Refilled cyclobenzaprine 10 mg PO BEDTIME 14 tabs 0RF Patient Instructions: - Schedule and attend colonoscopy appointment. - Follow blood pressure monitoring plan and attend follow-up with nurse navigator. - Take Vitamin D supplements as advised. - Limit alcohol consumption. - Engage in 30 minutes of moderate exercise 5 days a week. - Return for follow-up labs in six weeks as scheduled; fasting is not required. - For any new or concerning symptoms, seek medical advice promptly.
[2024-08-22 08:57] VITALS: BP 138/90; BMI 29.3
== END 2024-08-22 09:28 | disposition home or self-care (01) ==
PROVIDERS: PCP Internal Medicine; Visit Provider Internal Medicine
DX: Z00.00 Encounter for general adult medical examination without abnormal findings (principal); R74.01 Elevation of levels of liver transaminase levels; F32.0 Major depressive disorder, single episode, mild; Z23 Encounter for immunization

== ENCOUNTER → 2024-08-22 08:50 | Outpatient (BNVA) | payer OTHER, SELFPAY | PROVIDERS: PCP Internal Medicine; Visit Provider Internal Medicine | DX: Z00.00 Encounter for general adult medical examination without abnormal findings (principal); R74.01 Elevation of levels of liver transaminase levels; F32.0 Major depressive disorder, single episode, mild | CPT/HCPCS: 96127; 99212; 99396 ==

== ENCOUNTER 2024-08-31 13:59 | Outpatient (AMB) | payer OTHER, SELFPAY ==
--- NOTE | 2024-08-31 14:52 | A.OFFVIS_ITS ---
Intake Visit Reasons: Followup/PVR Intake Note: Patient is Present for PVR/ Urology Med: Tadalafil, Oxybutynin(PCP Prescribes) Antibiotic Allergy: Penicillins Blood Thinner:None Todays PVR: 112ml Quilt Stuffer Required: No Accompanied by: Self / Same As Patient Allergies Penicillins Allergy (Severe, Verified 08/31/24 14:55) Anaphylaxis furosemide [From Lasix] Allergy (Intermediate, Verified 08/31/24 14:55) hive Medication List - Last Reconciled 08/31/24 by Edilson Sheridan MD acetaminophen 1,000 mg (2 x 500 mg) PO Q6H PRN 30 days amlodipine 5 mg PO DAILY cholecalciferol (vitamin D3) 25 mcg PO DAILY 90 days cyclobenzaprine 10 mg PO BEDTIME fluoxetine 10 mg PO DAILY 90 days levothyroxine 137 mcg PO DAILY 90 days metoprolol tartrate 100 mg PO BID 90 days omeprazole 20 mg PO DAILY oxybutynin chloride ER 10 mg PO DAILY tadalafil (Cialis) 5 mg PO DAILY 90 days HPI Comments Details: 08/31/24-Boone is here in follow-up he is on oxybutynin due to overactive bladder symptoms he states when he does not take the medication he notices the difference and has leaked on himself. History of urothelial cancer Urinalysis negative for blood, positive for protein. Follow-up in September for office cystoscopy. Refer to nephrology for proteinuria 10/20/23--Boone is a 53-year-old male is scheduled for office cysto, h/o superfical bladder cancer. I reviewed renal ultrasound 10/01/2023 is within normal limits, estimated prostate size 51 mL. He denies irritative voiding symptoms denies gross hematuria. He states that he has to push sometimes to empty. Cystoscopy - moderate trabeculations, will continue with surveillance. 12/31/22-- The patient has history of superficial bladder cancer. He states doing well overall. The patient states that he had an allergic reaction to IV contrast on prior CAT scan. 12/31/22- Telehealth- discussed PSA results reviewed--11/19/22--0.86. Continue yearly surveillance with cystoscopy. Renal US prior was ordered. 10/05/22--Boone is a 52 year old male patient of who presents to the office today for office cystoscopy. He was seen by RA[facility] as a new patient for a history of bladder cancer. Patient reports initial diagnosis of bladder cancer was approximately 2010. He states he was following up with [facility] from 2010 to 2019 however due to financial circumstances has been unable to attend follow up appointments due to a balance he has with Dr. Roman. Patient also reports at some point from [id number] being referred to [facility] and having surgery there on his ureters due to invasion of bladder tumor. At this time there are no records to be reviewed however will attempt to obtain records. When asked patient reports last cystoscopy to be in 2019 prior to covid pandemic.In discussion with the patient today regarding urological medications patient reports to be doing well on oxybutynin. He reports having some urinary urgency and frequency after many TURBTs and this medication is what works well for him. He has had multiple TURBTs. He denies intravesical bladder treatments. In review of the patient's chart retroperitoneal ultrasound (04/2022) given patients history of bladder cancer. Bilateral renal cysts not appreciably changed from 2019, no hydronephrosis, no bladder mass or wall thickening appreciated. Small post void bladder. Enlarged prostate gland. PSA level was 0.9 in June 2022.The patient is however reporting low libido and erectile dysfunction. Evaluation today: UA negative for infection and or blood. office for cystoscopy --bladder mild/mod trabeculations, and cellule changes, no suspicious bladder lesions visualized. Plan: H/O superficial TCC, OAB, monitor PVR fu in 7 weeks [facility] Medical History Rheumatoid arthritis Rash Hypothyroid HTN (hypertension) Nocturnal hypoxemia AMANDEEP (obstructive sleep apnea) Obesity (BMI 30-39.9) Encounter to establish care Surgical History H/O transurethral resection of bladder tumor (TURBT) History of colonoscopy Family History Mother Breast cancer Father Heart attack CKD (chronic kidney disease) requiring chronic dialysis Brother No problems noted. Sister No problems noted. Sister No problems noted. Daughter No problems noted. Daughter No problems noted. Social History Housing: House Alcohol intake: current Alcohol intake frequency: a few times a month Alcohol type: wine Patient Tobacco Use Status: Never used Tobacco e-Cigarette/Vaping Use: Never Used Second Hand Smoke Exposure: No service: No Current occupational status: employed Current occupational exposures/hazards: No Cognitive needs: No Hearing needs: No Vision needs: No Review of Systems Const All systems reviewed & are unremarkable except as noted in HPI and below Reports no additional complaints Eyes Reports no additional complaints ENT Reports no additional complaints Card Reports no additional complaints Resp Reports no additional complaints GI Reports no additional complaints Reports as per HPI Musc Reports no additional complaints Skin/Breast Reports system reviewed and no additional complaints, except as documented Neuro Reports no additional complaints Psych Reports no additional complaints Endo Reports no additional complaints Xavier/Lymph Reports no additional complaints Aller/Immun Reports no additional complaints Office Procedures Post Void Residual Post Residual Void Post Void Residual (PVR): 112 [id number] Void Residual by ultrasound Results AMB Urinalysis, Automated UA Leukoctes 0 Kalie/uL Last Edit by Marion Hinkle [facility] on 08/31/24 15:18 UA Nitrite Negative Last Edit by Marion Hinkle [facility] on 08/31/24 15:18 UA Urobilinogen 1 mg/dL Last Edit by Marion Hinkle, A on 08/31/24 15:18 UA Protein 100 mg/dL Last Edit by Marion Hinkle [facility] on 08/31/24 15:18 UA pH 6.0 Last Edit by Marion Hinkle [facility] on 08/31/24 15:18 UA Blood 0 Kenyon/uL Last Edit by Marion Hinkle [facility] on 08/31/24 15:18 UA Specific [place] 1.020 Last Edit by Marion Hinkle [facility] on 08/31/24 15: 18 UA Ketone Negative Last Edit by Marion Hinkle, [facility] on 08/31/24 15:18 UA Bilirubin 0 mg/dL Last Edit by Marion Hinkle [facility] on 08/31/24 15:18 UA Glucose 0 mg/dL Last Edit by Marion Hinkle [facility] on 08/31/24 15:18 Results Reviewed Results Reviewed: Laboratory Last Values Urine pH (Auto) 6.0 08/31/24 15:04 Specific [place] (Auto) 1.020 08/31/24 15:04 Urine Protein (Auto) 100 mg/dL 08/31/24 15:04 Glucose (UA)(Auto) 0 mg/dL 08/31/24 15:04 Urine Ketones (Auto) Negative 08/31/24 15:04 Urine Blood (Auto) 0 Kenyon/uL 08/31/24 15:04 Urine Nitrite (Auto) Negative 08/31/24 15:04 Urine Bilirubin (Auto) 0 mg/dL 08/31/24 15:04 Urine Urobilinogen (Auto) 1 mg/dL 08/31/24 15:04 Leukocyte Esterase (Auto) 0 Kalie/uL 08/31/24 15:04 Assessment & Plan Assessment & Plan (1) Screening PSA (prostate specific antigen): Code(s): Z12.5 - Encounter for screening for malignant neoplasm of prostate Category: Medical (2) Proteinuria: Code(s): R80.9 - Proteinuria, unspecified Category: Medical (3) OAB (overactive bladder): Code(s): N32.81 - Overactive bladder Category: Medical (4) History of bladder cancer: Code(s): Z85.51 - Personal history of malignant neoplasm of bladder Category: Medical Plan Continue oxybutynin 10 mg daily. Follow-up in September for office cystoscopy. PSA screening. Refer to nephrology for proteinuria Orders: Orders 2 PSA,Total (Free>4and<10) Today Z12.5 - Encounter for screening for malignant neoplasm of prostate AMB Urinalysis Automated Today Z13.9 - Encounter for screening, unspecified AMB Post Void Residual by ultrasound Today N32.81 - Overactive bladder Referrals Nephrology Referral R80.9 - Proteinuria, unspecified Patient Instructions: The patient had an opportunity to ask questions regarding treatment plan. The patient expressed understanding and agreement with the above treatment plan. The patient is aware they should contact our office by phone for worsening of their current condition or the appearance of new symptoms. Compliance is encouraged with any medications and followup testing that is ordered. It is a privilege to be allowed the opportunity to participate in the urologic care of your patient. If you have any questions or concerns regarding treatment for the above conditions please do not hesitate to contact me. The office telephone contact is [phone]. This note is constructed in part using voice recognition software. While every effort has been made to ensure accuracy reservations clerk errors may have been included. Yours sincerely, Edilson Sheridan MD Coding Level of Care Code Est Pt Level 4 (96405) Complex EM visit Add On G2211 Diagnoses Screening PSA (prostate specific antigen) Z12.5 Proteinuria R80.9 OAB (overactive bladder) N32.81 History of bladder cancer Z85.51 CPT Codes Post Residual Void - PVR CPT Code: 31565-[id number] Void Residual by ultrasound ([id number])
--- OUTSIDE RECORDS SUMMARY | 2024-08-31 17:53 | XMS_ITS | Clinical Summary ---
Author Organization [facility] Address [address] [place] [address] Phone Care Team Providers Care Energy Efficiency Engineer Name Role Phone Eugenia Sparrow MD Primary Care Provider [phone] Allergies Active Allergy Reactions Criticality Noted Date Comments Furosemide Hives Medium 08/22/2024 Lasix Penicillins Anaphylaxis High 10/02/2009 Rash and itch of mouth. Medications Medication Sig Dispensed Refills Start Date End Date Status omeprazole (PriLOSEC) [address] capsule Take 1 capsule (20 mg total) by mouth 1 (one) time each day. 09/23/2021 Active oxyBUTYnin XL (DITROPAN-XL) 10 mg 24 hr tablet Take 1 tablet (10 mg total) by mouth 1 (one) time each day. 02/22/2020 Active acetaminophen (TYLENOL) 500 mg tablet Take 2 tablets (1,000 mg total) by mouth every 6 (six) hours if needed for mild pain. Active amLODIPine (NORVASC) 5 mg tablet Take 1 tablet (5 mg total) by mouth 1 (one) time each day. Active cyclobenzaprine (FLEXERIL) 10 mg tablet Take 1 tablet (10 mg total) by mouth at bedtime. Active levothyroxine (SYNTHROID, LEVOTHROID) 137 mcg tablet Take 1 tablet (137 mcg total) by mouth 1 (one) time each day before breakfast. Active metoprolol tartrate (LOPRESSOR) 100 mg tablet Take 1 tablet (100 mg total) by mouth 2 (two) times a day. Active tadalafiL (CIALIS) 5 mg tablet Take 1 tablet (5 mg total) by mouth 1 (one) time each day. Active polyethylene glycol (Golytely) 236-22.74-6.74 -5.86 gram solution Take 4L by mouth once for one dose. May substitue any PEG. Starting at 6PM the night before your procedure drink 1 8oz glasses at your own pace until you complete half of the gallon. Finish 2nd half of the gallon 5 hours before your procedure. 4000 mL 08/29/2024 Active bisacodyL (DULCOLAX) 5 mg EC tablet Take 2 tablets by mouth right before beginning bowel prep. See instructions provided by the office 2 tablet 08/29/2024 Active Encounters Date Type Department Care Team Description 08/22/2024 Telephone Gastroenterology - [place] [facility] [address] [facility] [address] [place] [address] Javed Romeo MD Special Procedure from Last 3 Months Surgical History Surgery Date Site/Laterality Comments BLADDER SURGERY 08/2015 PROCEDURE: HISTORICAL BLADDER SURGERY; COMMENT: benign tumors in bladder 07/13/2019 as well. COLONOSCOPY 09/12/2018 PROCEDURE: HISTORICAL COLONOSCOPY; COMMENT: 10mm hyperplastic polyp removed sigmoid colon, internal hemorrhoids, otherwise normal. Repeat 5 years. OTHER SURGICAL HISTORY 09/2020 PROCEDURE: ---- OTHER ----; COMMENT: transurethral resection of bladder tumor OTHER SURGICAL HISTORY 10/2020 PROCEDURE: HISTORY OTHER; COMMENT: robotic reimplantation ureteral bilateral, bilateral ureer stent placement Medical History Medical History Date Comments Depression 06/20/2020 DX:Depression Osteoarthritis 06/20/2020 DX:Osteoarthriti s ED (erectile dysfunction) 06/20/2020 DX:ED (erectile dysfunction) DDD (degenerative disc disea se), cervical 06/20/2020 DX:DDD (degenerative disc di sease), cervical; COMMENT: 3-5. Also lumbar, no known herniated disc. Anxiety 01/23/2009 DX:Anxiety Benign prostatic hyperplasia 11/01/2012 DX: Benign prostatic hyperplasia Chronic neck pain 01/12/2013 DX:Chronic nec k pain Family history of colon cancer 03/03/2010 D X:Family history of colon cancer; COMMENT: Two uncles on the father side Fatty liver 01/23/2009 DX:Fatty liver GERD (gastroesophageal reflux disease) 01/14/2012 DX:GERD (gastroesophageal reflux disease) High cholesterol 01/23/2009 DX:High cholest justin HTN (hypertension) 07/29/2011 DX:HTN (hyper tension) Hypothyroidism 01/23/2009 DX:Hypothyroidis m Urinary frequency 09/12/2012 DX:Urinary fausto quency; COMMENT: Patient is following to Dr Aguiar. Had cystoscopy and was recommended additional surgery on 09/2012. Had a benign bladder tumor. Stasis edema of both lower extremities 0 DX:Stasis edema of both lower extremities Urge incontinence 06/20/2020 DX:Urge incont inence Benign bladder tumor 06/20/2020 DX:Benign b ladder tumor Fatty liver DX:Fatty liver Elevated liver enzymes DX:Elevat ed liver enzymes Family History Medical History Relation Name Comments No Known Problems Brother No Known Problems Daughter Diabetes Father CKD/dialysis No Known Problems Mother arthritis No Known Problems Other No Known Problems Sister 1 No Known Problems Sister 2 No Known Problems Son No Known Problems Uncle 1 No Known Problems Uncle 2 Autoimmune disease Neg Hx Breast cancer Neg Hx Colon cancer Neg Hx Coronary artery disease Neg Hx Heart attack Neg Hx Heart failure Neg Hx Hyperlipidemia Neg Hx Hypertension Neg Hx Mental illness Neg Hx Prostate cancer Neg Hx Sleep apnea Neg Hx Thyroid disease Neg Hx Relation Name Status Comments Brother MVA Daughter Alive Father DM, htn Mother Alive breast cancer Other Sister 1 Alive hyperthyroidsm Sister 2 Alive HTN Son Uncle 1 colon cancer Uncle 2 colon cancer Social History Tobacco Use Types Packs/Day Years Used Date Smoking Tobacco: Never Smokeless Tobacco: Never Alcohol Use Standard Drinks/Week Comments Yes 0 (1 standard drink = 0.6 oz pur e alcohol) Sex and Gender Information Value Date Recorded Sex Assigned at Not on file Gender Identity Not on file Sexual Orientation Not on file Obstetrics History Plan of Treatment Upcoming Encounters Date Type Department Care Team ([facility] st Contact Info) Description 10/05/2024 2:00 PM EST Appointment [facility] Endoscopy [address] [place] [phone] Pedro Luis Tsai MD [address] [address] Health Maintenance Due Date Last Done Comments Hepatitis A Vaccines (1 of 2 - Risk 2-dose series) 01/23/1987 Hepatitis B Vaccines (1 of 3 - 19+ 3-dose series) 01/23/1987 Zoster Vaccines (1 of 2) 01/23/2018 Cholesterol Screening (Lipid Panel) 07/11/2022 Colorectal Cancer Screening: Colonoscopy 07/11/2022 Depression Screening 07/11/2022 HIV Screening 07/11/2022 Hepatitis C Screening 07/11/2022 Social Influencers of Health Screening 07/11/2022 Hypertension/CHF/CAD Annual BMP Blood Test 07/16/2022 DTaP,Tdap,and Td Vaccines (2 - Td or Tdap) 09/12/2022 09/12/2012 COVID-19 Vaccine (3 - 2023-2 5 season) 2024 08/31/2020, 08/03/2020 Influenza Vaccine (#1) 2024 0, 08/14/2009, 04/29/2009 HIB Vaccines Aged Out No longer eligi ble based on patient's age to complete this topic HPV Vaccines Aged Out No longer eligi ble based on patient's age to complete this topic IPV Vaccines Aged Out No longer eligi ble based on patient's age to complete this topic MMR Vaccines Aged Out No longer eligi ble based on patient's age to complete this topic Meningococcal ACWY Vaccine Aged Out N o longer eligible based on patient's age to complete this topic Pneumococcal Vaccine: Pediatrics (0 to 5 Years) and At-Risk Patients (6 to 64 Years) Aged Out No longer eligible b ased on patient's age to complete this topic RSV Immunization Patients Under 20 months Aged Out No longer eligible b ased on patient's age to complete this topic Varicella Vaccines Aged Out No longer eligible based on patient's age to complete this topic Care Teams Energy Efficiency Engineer Relationship Specialty Start Date End Date Eugenia Sparrow MD [address] [place] [phone] PCP - General Internal Medicine 08/22/24
--- OUTSIDE RECORDS SUMMARY | 2024-08-31 17:53 | XMS_ITS | Encounter Summary ---
Author Organization [facility] Address [address] [place] [address] Care Team Providers Care Mail Order Sorter Name Role Phone Eugenia Sparrow MD Primary Care Provider [phone] Reason for Visit * Reason Onset Date Comments Special Procedure 08/22/2024 Encounter Details Date Type Department Care Team (Late st Contact Info) Description 08/22/2024 Telephone Gastroenterology - [place] [address] [place] [phone] Javed Romeo MD [address] [place], [place] [phone] Special Procedure Social History Tobacco Use Types Packs/Day Years Used Date Smoking Tobacco: Never Smokeless Tobacco: Never Alcohol Use Standard Drinks/Week Comments Yes 0 (1 standard drink = 0.6 oz pur e alcohol) Sex and Gender Information Value Date Recorded Sex Assigned at Not on file Gender Identity Not on file Sexual Orientation Not on file documented as of this encounter Progress Notes * Diane Scott - 08/29/2024 11:33 AM EST scheduled * Diane Scott - 08/25/2024 8:41 AM EST 1st attempt to schedule an appointment patient left message to call back Hx colon polyps-any * Diane Yañez MA - 08/22/2024 3:40 PM EST Meds and allergies updated, given to GI schedulers. Wanda * Марина Kimani Comer - 08/22/2024 2:18 PM EST Records received from [facility] for colonoscopy, given to Wanda to update meds & allergies documented in this encounter Plan of Treatment Upcoming Encounters Date Type Department Care Team (Late st Contact Info) Description 10/05/2024 2:00 PM EST Appointment [facility] Endoscopy [address] [place] [phone] Pedro Luis Tsai MD [address] [address] documented as of this encounter Visit Diagnoses Not on filedocumented in this encounter Care Teams Mail Order Sorter Relationship Specialty Start Date End Date Eugenia Sparrow MD [address] [place] [address] PCP - General Internal Medicine 08/22/24 documented as of this encounter
--- OUTSIDE RECORDS SUMMARY | 2024-08-31 17:53 | XMS_ITS | Clinical Summary ---
Author Organization [facility] Address [address] [place] [address] Care Team Providers Care Vending Machine Refiller Name Role Phone Tamara Short MD Primary Care Provider Allergies Active Allergy Reactions Criticality Noted Date Comments Iodinated Contrast Media 11/25/2017 Penicillins 11/25/2017 Medications Medication Sig Dispensed Refills Start Date End Date Status amLODIPine (NORVASC) tablet 10 mg Take 10 mg by mouth daily. 0 Active tadalafil (CIALIS) 20 MG tablet Take 20 mg by mouth daily as needed for erectile dysfunction. 0 Active hydrochlorothiazide (HYDRODIURIL) tablet 12.5 mg Take 12.5 mg by mouth daily. 0 Active levothyroxine (SYNTHROID, LEVOXYL) tablet 75 mcg Take 75 mcg by mouth every morning on an empty stomach. 0 Active metoprolol tartrate (LOPRESSOR) 100 MG tablet Take by mouth 2 (two) times a day. 0 Active famotidine (PEPCID) 20 MG tablet Take 20 mg by mouth 2 (two) times a day. 0 Active Active Problems Problem Noted Date Diagnosed Date Bladder cancer Erectile dysfunction Cystitis without hematuria Renal cyst Decreased libido Family History Medical History Relation Name Comments Heart attack Father Hypertension Mother Colon cancer Other Relation Name Status Comments Father Mother Other Social History Tobacco Use Types Packs/Day Years Used Date Smoking Tobacco: Never Smokeless Tobacco: Never Alcohol Use Standard Drinks/Week Comments Yes 0 (1 standard drink = 0.6 oz pur e alcohol) Sex and Gender Information Value Date Recorded Sex Assigned at Not on file Gender Identity Not on file Sexual Orientation Not on file Last Filed Vital Signs Vital Sign Reading Time Taken Comments Blood Pressure 130/90 11/26/2017 9:05 AM EDT Pulse - - Temperature - - Respiratory Rate - - Oxygen Saturation - - Inhaled Oxygen Concentration - - Weight 83.9 kg (185 lb) 11/26/2017 9:05 AM EDT Height 180.3 cm (5' 11 ) 11/26/2017 9:05 AM EDT Body Mass Index 25.8 11/26/2017 9:05 AM EDT Plan of Treatment Health Maintenance Due Date Last Done Comments Hepatitis B Vaccines (1 of 3 - 3-dose series) 1968 Hepatitis C Screening 1968 COVID-19 Vaccine (#1) 01/23/1973 Pneumococcal Vaccine (1 of 2 - PCV) 01/23/1974 Depression Screening 1980 Preventative Health Evaluation 01/23/1986 DTap / Tdap / Td (1 - Tdap) 01/23/1987 Shingrix-Zoster Vaccine (1 of 2) 01/23/1987 Colon Cancer Screening (Colonoscopy) 01/23/2013 Influenza Vaccine (#1) 2024 RSV Ped < 20 months Aged Out No longe r eligible based on patient's age to complete this topic Care Teams Vending Machine Refiller Relationship Specialty Start Date End Date Tamara Short MD [address] [facility] [place] [address] PCP - General Internal Medicine 11/25/17
== END 2024-08-31 15:37 | disposition home or self-care (01) ==
PROVIDERS: PCP Internal Medicine; Visit Provider Urology
DX: Z12.5 Encounter for screening for malignant neoplasm of prostate (principal); R80.9 Proteinuria, unspecified; N32.81 Overactive bladder; Z85.51 Personal history of malignant neoplasm of bladder; Z13.9 Encounter for screening, unspecified
CPT/HCPCS: 99214; G2211

== ENCOUNTER 2024-08-31 13:59 | Outpatient (REF) | payer OTHER, SELFPAY ==
[2024-08-31 16:57] LABS: Urine Cytology See Pathology rpt
--- OUTSIDE RECORDS SUMMARY | 2024-08-31 19:30 | XMS_ITS | Clinical Summary ---
Author Organization [facility] Address [address] [place] [address] Care Team Providers Care Event Technician Name Role Phone Tamara Short MD Primary [...] age to complete this topic Care Teams Event Technician Relationship Specialty Start Date End Date Tamara Short MD [address] [facility] [place] [address] PCP - General Internal Medicine 11/25/17
--- OUTSIDE RECORDS SUMMARY | 2024-08-31 19:30 | XMS_ITS | Encounter Summary ---
Author Organization [facility] Address [address] [place] [phone] Care Team Providers Care Movie Shot Camera Operator Name Role Phone Eugenia Sparrow MD Primary Care Provider [phone] Reason for Visit * Reason Onset Date Comments Special Procedure 08/22/2024 Encounter Details Date Type Department Care Team (Late st Contact Info) Description 08/22/2024 Telephone Gastroenterology - [place] [address] [place] [address] [place] [phone] Javed Romeo MD [address] [place], [place] [phone] Special Procedure Social History Tobacco Use Types [...] 08/22/2024 2:18 PM EST Records received from [facility] for colonoscopy, given to Wanda to update meds & allergies documented in this encounter Plan of Treatment Upcoming Encounters Date Type Department Care Team (Late st Contact Info) Description 10/05/2024 2:00 PM EST Appointment [facility] Endoscopy [address] [place] [phone] Pedro Luis Tsai MD [address] [address] documented as of this encounter Visit Diagnoses Not on filedocumented in this encounter Care Teams Movie Shot Camera Operator Relationship Specialty Start Date End Date Eugenia Sparrow MD [address] [place] [address] PCP - General Internal Medicine 08/22/24 documented as of this encounter
--- OUTSIDE RECORDS SUMMARY | 2024-08-31 19:30 | XMS_ITS | Clinical Summary ---
Author Organization 175 [facility] Address 175 [place] [address] Phone Care Team Providers Care Automatic Data Processing Planner Name Role Phone Eugenia Sparrow MD Primary Care Provider [phone] Allergies Active Allergy Reactions Criticality Noted Date [...] Care Team Description 08/22/2024 Telephone Gastroenterology - [place] 175 [facility] 175 [facility] [address] [place] [address] Javed Romeo MD Special Procedure [...] Upcoming Encounters Date Type Department Care Team ([facility] st Contact Info) Description 10/05/2024 2:00 PM EST Appointment [facility] Endoscopy [address] [place] [phone] Pedro Luis Tsai MD [address] [address] Health Maintenance Due Date Last Done Comments [...] age to complete this topic Care Teams Automatic Data Processing Planner Relationship Specialty Start Date End Date Eugenia Sparrow MD [address] [place] [phone] PCP - General Internal Medicine 08/22/24
== END 2024-08-31 14:00 | disposition home or self-care (01) ==
LOC: HO.LAB 13:59
PROVIDERS: PCP Internal Medicine; Visit Provider Urology
DX: N32.81 Overactive bladder (principal); Z85.51 Personal history of malignant neoplasm of bladder; R80.9 Proteinuria, unspecified
CPT/HCPCS: 51798; 81003; 88112; 99212

== ENCOUNTER 2024-09-20 08:23 | Outpatient (REF) | payer OTHER, SELFPAY ==
--- NOTE | ~2024-09-20 | US_ITS ---
EXAMINATION: US COMPLETE ABDOMEN WITH LIVER ELASTOGRAPHY CLINICAL INFORMATION: Elevated LFTs. COMPARISON: Abdomen US 03/31/2022. No prior elastography. TECHNIQUE: Real-time imaging of the abdominal viscera. Noninvasive ultrasound liver fibrosis assessment is performed using [place] ElastPQ point quantification shear wave elastography (pSWE) with a C5-2 MHz transducer. Multiple elastography samples are obtained. FINDINGS: PANCREAS: The visualized pancreatic head and body are normal in appearance. The remainder of the pancreas is obscured from visualization by the overlying bowel gas. ABDOMINAL AORTA: No aortic aneurysm is seen. INFERIOR VENA CAVA: Visualized portions are normal. LIVER: The liver is normal in size. There is normal contour. There is diffusely increased hepatic echogenicity, without suspicious focal lesion. There is a calcification measuring 7 mm in the left lobe inferiorly. The right lobe measures 14.3 cm in length. The left lobe measures 11.2 cm in length. Portal flow is towards the liver (hepatopetal). Shear wave liver elastography median stiffness is 1.85 m/s (reference: normal median stiffness is 1.3 m/s or less). IQR/median stiffness to assess sampling precision is 0.10 (reference: good quality data set is IQR/median stiffness of 0.15 or less). GALLBLADDER: Gallbladder is surgically absent. COMMON BILE DUCT: Normal in caliber measuring 0.3 cm in diameter. RIGHT KIDNEY: No hydronephrosis. No renal calculi or suspicious focal parenchymal lesions. The kidney measures 12.1 cm in maximum dimension. There are several cortical cysts, largest in the upper pole measuring 2.5 cm. LEFT KIDNEY: No hydronephrosis. No renal calculi or suspicious focal parenchymal lesions. The kidney measures 11.6 cm in maximum dimension. There are several cortical cysts, largest in the upper pole measuring 2.7 cm. SPLEEN: Unremarkable. The spleen measures 7.9 cm in maximum dimension. FREE FLUID: None seen. US/US abdomen comp w elastography IMPRESSION: 1. Diffusely increased hepatic echogenicity without discrete focal lesion. 2. Liver elastography: Measurements are suggestive of compensated advanced chroniic liver disease but need further test for confirmation. 3. Cholecystectomy. 4. Bilateral renal cysts. REFERENCE: Society of Radiologists in Ultrasound Liver Stiffness Thresholds (2020): LIVER STIFFNESS THRESHOLDS: *Liver Stiffness equal or less than 1.3 m/s: High probability of being normal. *Liver Stiffness less than 1.7 m/s: In the absence of other known clinical signs, rules out compensated advanced chronic liver disease. *Liver Stiffness 1.7-2.1 m/s: Suggestive of compensated advanced chronic liver disease but need further test for confirmation. *Liver Stiffness over 2.1 m/s: Rules in compensated advanced chronic liver disease. *Liver Stiffness over 2.4 m/s: Suggestive of clinically significant portal hypertension. QUALITY OF DATA SET: *IQR/Median value equal or less than 0.15 implies a quality data set. *IQR/Median value over 0.15 implies a poor quality data set. SIGNIFICANT CHANGE FROM PRIOR EXAM: Significant change if liver stiffness measurement is 10% or greater from prior exam. OTHER CONSIDERATIONS: The stage of liver fibrosis may be overestimated in the setting of acute hepatitis, liver inflammation, elevated liver function tests, hepatic vascular congestion, obstructive cholestasis, non-fasting state, and infiltrative diseases such as amyloidosis and lymphoma. In some patients with NAFLD, the liver stiffness thresholds for compensated advanced chronic liver disease may be lower. In causes other than viral hepatitis and NAFLD, liver stiffness thresholds are not well established. Electronically signed by: Noé Yun MD 09/20/2024 01:26 PM [facility]
--- OUTSIDE RECORDS SUMMARY | 2024-09-20 08:28 | XMS_ITS | Encounter Summary ---
Author Organization [facility] Address [id number] [place] [address] Care Team Providers Care Bistro Attendant Name Role Phone Eugenia Sparrow MD Primary Care Provider [phone] Reason for Visit * Reason Onset Date Comments Special Procedure 08/22/2024 Encounter Details Date Type Department Care Team (Late st Contact Info) Description 08/22/2024 Telephone Gastroenterology - [place] [address] [place] [address] [facility] [address] [place] [phone] Javed Romeo MD [address] [facility] [address] [place], [place] [phone] Special Procedure Social History Tobacco Use Types Packs/Day Years Used Date Smoking Tobacco: Never Smokeless Tobacco: Never Alcohol Use Standard Drinks/Week Comments Yes 0 (1 standard drink = 0.6 oz pur e alcohol) Sex and Gender Information Value Date Recorded Sex Assigned at Not on file Legal Sex Male 4:35 AM EST Gender Identity Not on file Sexual Orientation [...] given to GI schedulers. Wanda * Марина Weaver - 08/22/2024 2:18 PM EST Records received from [facility] for colonoscopy, given to Wanda to update meds & allergies documented in this encounter Plan of Treatment Upcoming Encounters Date Type Department Care Team (Late st Contact Info) Description 10/05/2024 2:00 PM EST Appointment [facility] Endoscopy [address] [place] [phone] Pedro Luis Tsai MD [address] [address] documented as of this encounter Visit Diagnoses Not on filedocumented in this encounter Care Teams Bistro Attendant Relationship Specialty Start Date End Date Eugenia Sparrow MD [address] [place] [address] PCP - General Internal Medicine 08/22/24 documented as of this encounter
--- OUTSIDE RECORDS SUMMARY | 2024-09-20 08:28 | XMS_ITS | Clinical Summary ---
Author Organization [facility] Address [address] [place] [address] Care Team Providers Care Parking Enforcer Name Role Phone Tamara Short MD Primary [...] age to complete this topic Care Teams Parking Enforcer Relationship Specialty Start Date End Date Tamara Short MD [address] [place] [address] PCP - General Internal Medicine 11/25/17
--- OUTSIDE RECORDS SUMMARY | 2024-09-20 08:28 | XMS_ITS | Clinical Summary ---
Author Organization 175 [facility] Address 175 [place] [address] Phone Care Team Providers Care Broke Beater Machine Operator Name Role Phone Eugenia Sparrow MD Primary Care Provider [phone] Allergies Active Allergy Reactions Criticality Noted Date Comments Furosemide Hives Medium 08/22/2024 Lasix Penicillins Anaphylaxis High 10/02/2009 Rash and itch of mouth. Medications omeprazole (PriLOSEC) [address] capsule Take 1 capsule (20 mg total) by mouth 1 (one) time each day. 2 Active oxyBUTYnin XL (DITROPAN-XL) 10 mg 24 hr tablet Take 1 tablet (10 mg total) by mouth 1 (one) time each day. 0 Active acetaminophen (TYLENOL) 500 mg tablet Take [...] 5 hours before your procedure. 4000 mL 5 Active bisacodyL (DULCOLAX) 5 mg EC tablet Take 2 tablets by mouth right before beginning bowel prep. See instructions provided by the office 2 tablet 5 Active Encounters Date Type Department Care Team Description 08/22/2024 Telephone Gastroenterology - [place] [facility] 175 [facility] [address] [place] [address] Javed Romeo MD Special Procedure [...] Info) Description 10/05/2024 2:00 PM EST Appointment [facility] Endoscopy [address] [place] [phone] Pedro Luis Tsai MD [address] [address] Health Maintenance Due Date Last Done Comments Hepatitis A Vaccines (1 of 2 - Risk 2-dose series) 01/23/1987 Hepatitis B Vaccines (1 of 3 - 19+ 3-dose series) 01/23/1987 Pneumococcal Vaccine: 50+ Years (1 of 1 - PCV) 01/23/2018 Zoster Vaccines (1 of 2) 01/23/2018 Cholesterol [...] patient's age to complete this topic Meningococcal B Vacine Aged Out No lo nger eligible based on patient's age to complete [...] on patient's age to complete this topic Insurance [facility] PL[facility] Care Teams Broke Beater Machine Operator Relationship Specialty Start Date End Date Eugenia Sparrow MD [address] [place] [address] PCP - General Internal Medicine 08/22/24
[2024-09-20 09:42] LABS: Alanine Aminotransferase 50 U/L (0-40); Albumin Level 4.4 g/dL (3.5-5.0); Alkaline Phosphatase 91 U/L (39-117); Anion Gap 12 (12-20); Aspartate Amino Transferase 33 U/L (5-37); Bilirubin Direct 0.3 mg/dL (0.0-0.5); Bilirubin Total 0.9 mg/dL (0.0-1.0); Blood Urea Nitrogen 14 mg/dL (9-16); Calcium 9.3 mg/dL (8.4-10.2); Carbon Dioxide 29 mmol/L (22-29); Chloride 106 mmol/L (96-108); Cholesterol 209 mg/dL (<200); Estimated Glomerular Filt Rate > 60; Glucose Fasting 102 mg/dL (60-99); HDL Cholesterol 65 mg/dL (>40); LDL Cholesterol Calculated 123 mg/dL (<100); Potassium 3.7 mmol/L (3.3-5.1); Sodium 143 mmol/L (135-145); Total Protein 8.2 g/dL (6.5-8.0); Triglycerides 107 mg/dL (<150)
[2024-09-20 09:58] LABS: Thyroid Stimulating Hormone 7.37 uIU/mL (0.32-4.0); Vitamin D 25-OH Total 26.9 ng/mL (>30)
== END 2024-09-20 08:24 | disposition home or self-care (01) ==
LOC: HO.LAB 08:23
PROVIDERS: PCP Internal Medicine; Visit Provider Internal Medicine
DX: R74.01 Elevation of levels of liver transaminase levels (principal); I10 Essential (primary) hypertension; E55.9 Vitamin D deficiency, unspecified; E78.5 Hyperlipidemia, unspecified; E03.9 Hypothyroidism, unspecified
CPT/HCPCS: 36415; 76700; 76981; 80053; 80061; 80076; 82248; 82306; 84443

== ENCOUNTER → 2024-09-20 08:38 | Outpatient (BNV) | payer OTHER, SELFPAY | PROVIDERS: PCP Internal Medicine; Visit Provider Radiology Diagnostic Radiology | DX: N28.1 Cyst of kidney, acquired (principal); K76.89 Other specified diseases of liver | CPT/HCPCS: 76700 ==

== ENCOUNTER 2024-09-26 09:35 | Outpatient (AMB) | payer OTHER, SELFPAY ==
--- NOTE | 2024-09-26 09:45 | HO.NEPHOV_ITS ---
Vital Signs 09/26/24 09:46 Height 5 ft 10 in Weight 206 lb BMI 29.6 BP 154/110 H Blood Pressure Location Lt brachial Position Sitting Pulse 100 Pulse Source Pulse Oximeter Pulse Oximetry (%) 95 Oxygen Delivery Method Room Air Intake Visit Reasons: INP: Proteinuria- LVM Customer Service Representative Teller Required: No Accompanied by: Self / Same As Patient Allergies Penicillins Allergy (Severe, Verified 09/26/24 09:46) Anaphylaxis furosemide [From Lasix] Allergy (Intermediate, Verified 09/26/24 09:46) hive HPI Comments Details: Thank you for referring his 54-year-old gentleman for evaluation of CKD on a back drop of high BMI and hypertension. He has a history of bladder tumor resection. He is not a diabetic but has been a pre diabetic. His family history is significant for breast cancer in his mother and myocardial infarction along with kidney disease in his father, needing HD. His sister also has H/O ? CKD and a daughter has renal stones. He does not smoke and reports only limited alcohol consumption, primarily wine. Has H/O elevated liver enzymes and been followed up by PCP. He does not have any edema, new bone or back pain. He has H/O joint pains and takes NSAID's when he has severe pain. He denies any H/O vascular disease, carotid disease, PAD, LORY, CVA, CHF, CAD. He has no H/O hemoptysis, active hematuria, joint swelling, photosensitivity or skin rashes. His serum creatinine has gone up to 1.25 PFS Medical History Rheumatoid arthritis Rash Hypothyroid HTN (hypertension) Nocturnal hypoxemia AMANDEEP (obstructive sleep apnea) Obesity (BMI 30-39.9) Encounter to establish care Surgical History H/O transurethral resection of bladder tumor (TURBT) History of colonoscopy Family History Mother Breast cancer Father Heart attack CKD (chronic kidney disease) requiring chronic dialysis Brother No problems noted. Sister No problems noted. Sister No problems noted. Daughter No problems noted. Daughter No problems noted. Social History Housing: House Alcohol intake: current Alcohol intake frequency: a few times a month Alcohol type: wine Patient Tobacco Use Status: Never used Tobacco e-Cigarette/Vaping Use: Never Used Second Hand Smoke Exposure: No service: No Current occupational status: employed Current occupational exposures/hazards: No Cognitive needs: No Hearing needs: No Vision needs: No Review of Systems Const All systems reviewed & are unremarkable except as noted in HPI and below Physical Exam Const General: comfortable and no acute distress Orientation/consciousness: patient oriented x3 HEENT Head: Yes normocephalic Mouth: Normal oral and palatal mucosa present Eyes EOM: EOMs intact bilaterally Neck Neck: Yes supple Resp Auscultation: clear to auscultation bilaterally Cardio Jugular venous distension: no JVD Rate: regular rate GI Palpation (GI): Soft to palpation Auscultation: normal bowel sounds General: Yes no CVA tenderness Back/Spine/Pelvis Back: no CVA tenderness Skin General skin exam: no rashes or lesions noted Neuro General: patient oriented x3 and moves all extremities Extrem General: Yes no pedal edema Results Reviewed Nephrology Results: Sodium 143 mmol/L (135-145) 09/20/24 Potassium 3.7 mmol/L (3.3-5.1) 09/20/24 Chloride 106 mmol/L (96-108) 09/20/24 Carbon Dioxide 29 mmol/L (22-29) 09/20/24 BUN 14 mg/dL (9-16) 09/20/24 Creatinine 1.15 mg/dL (0.5-1.4) 09/20/24 Calcium 9.3 mg/dL (8.4-10.2) 09/20/24 Assessment & Plan Assessment & Plan (1) Essential hypertension: Code(s): I10 - Essential (primary) hypertension Category: Medical (2) Renal cyst: Code(s): N28.1 - Cyst of kidney, acquired Category: Medical (3) Proteinuria: Code(s): R80.9 - Proteinuria, unspecified Category: Medical Qualifiers: Proteinuria type: other Qualified Code(s): R80.8 - Other proteinuria Plan Boone has CKD 3 with hypertension on a back drop of H/O bladder tumor. He is a pre diabetic. Differential diagnosis is broad at this point. I asked him to abstain from NSAID's and maintain good hydration. I ordered extensive work up including 24 hour urine for protein. I reviewed his USS from last year which I shall repeat for follow up of his renal cysts. He may need a renal biopsy pending evolving data. All questions answered. F/U given in 1 month Orders: Orders Anti DNA DS Antibody 1 Week I10 - Essential (primary) hypertension, N28.1 - Cyst of kidney, acquired, R80.9 - Proteinuria, unspecified Complement C3 1 Week I10 - Essential (primary) hypertension, N28.1 - Cyst of kidney, acquired, R80.9 - Proteinuria, unspecified Complement C4 1 Week I10 - Essential (primary) hypertension, N28.1 - Cyst of k idney, acquired, R80.9 - Proteinuria, unspecified Phospholipase A2 Receptor Pnl 1 Week I10 - Essential (primary) hypertension, N28.1 - Cyst of kidney, acquired, R80.9 - Proteinuria, unspecified Hepatitis B Core Antibody 1 Week I10 - Essential (primary) hypertension, N28.1 - Cyst of kidney, acquired, R80.9 - Proteinuria, unspecified Hepatitis B Surface Antigen 1 Week I10 - Essential (primary) hypertension, N28.1 - Cyst of kidney, acquired, R80.9 - Proteinuria, unspecified UA and rflx microscopic 1 Week I10 - Essential (primary) hypertension, N28.1 - Cyst of kidney, acquired, R80.9 - Proteinuria, unspecified Prothrombin Time INR 1 Week R80.8 - Other proteinuria Myeloperoxidase Antibody 1 Week I10 - Essential (primary) hypertension, N28.1 - Cyst of kidney, acquired, R80.9 - Proteinuria, unspecified Proteinase 3 PR3 Antibodies 1 Week I10 - Essential (primary) hypertension, N28.1 - Cyst of kidney, acquired, R80.9 - Proteinuria, unspecified Anti Glomerular Basement Memb 1 Week I10 - Essential (primary) hypertension, N28.1 - Cyst of kidney, acquired, R80.9 - Proteinuria, unspecified Immunofixation Pnl, Serum 1 Week I10 - Essential (primary) hypertension, N28.1 - Cyst of kidney, acquired, R80.9 - Proteinuria, unspecified Immunofixation, Random Urine 1 Week I10 - Essential (primary) hypertension, N28.1 - Cyst of kidney, acquired, R80.9 - Proteinuria, unspecified Protein, 24 Hr Urine Group 1 Week I10 - Essential (primary) hypertension, N28.1 - Cyst of kidney, acquired, R80.9 - Proteinuria, unspecified Protein Creatinine Ratio, Ur 1 Week I10 - Essential (primary) hypertension, N28.1 - Cyst of kidney, acquired, R80.9 - Proteinuria, unspecified Complete Blood Count Auto Diff 1 Week R80.8 - Other proteinuria Coding Level of Care Code New Pt Level 4 (23666) Diagnoses Essential hypertension I10 Renal cyst N28.1 Other proteinuria R80.8 Proteinuria type: other
[2024-09-26 09:46] VITALS: BP 154/110; PULSE 100; O2SAT 95; BMI 29.6
--- OUTSIDE RECORDS SUMMARY | 2024-09-26 10:44 | XMS_ITS | Clinical Summary ---
Author Organization 175 [facility] Address 175 [facility] [place] [address] Phone Care Team Providers Care Commissions Analyst Name Role Phone Eugenia Sparrow MD Primary Care Provider [phone] Allergies Active Allergy Reactions Criticality Noted Date [...] Care Team Description 08/22/2024 Telephone Gastroenterology - [place] 175 [facility] 175 [facility] [address] [place] [address] Javed Romeo MD Special Procedure [...] Info) Description 10/05/2024 2:00 PM EST Appointment [facility] Endoscopy [address] [place] [phone] Pedro Luis Tsai MD [address] [address] Health Maintenance Due Date Last Done Comments [...] patient's age to complete this topic Insurance [facility] PLAN Care Teams Commissions Analyst Relationship Specialty Start Date End Date Eugenia Sparrow MD [address] [place] [address] PCP - General Internal Medicine 08/22/24
--- OUTSIDE RECORDS SUMMARY | 2024-09-26 10:44 | XMS_ITS | Clinical Summary ---
Author Organization [facility] Address [address] [place] [address] Care Team Providers Care Echo Vasc Tech Name Role Phone Tamara Short MD Primary [...] age to complete this topic Care Teams Echo Vasc Tech Relationship Specialty Start Date End Date Tamara Short MD [address] [place] [address] PCP - General Internal Medicine 11/25/17
--- OUTSIDE RECORDS SUMMARY | 2024-09-26 10:44 | XMS_ITS | Encounter Summary ---
Author Organization [facility] Address [address] [place] [address] Care Team Providers Care Boomboat Operator Name Role Phone Eugenia Sparrow MD Primary Care Provider [phone] Reason for Visit * Reason Onset Date Comments Special Procedure 08/22/2024 Encounter Details Date Type Department Care Team (Late st Contact Info) Description 08/22/2024 Telephone Gastroenterology - [place] [address] [place] [address] [facility] [address] [place] [phone] Javed Romeo MD [address] [facility] [address] [place], [place] [phone] Special Procedure Social History Tobacco Use Types [...] 2:18 PM EST Records received from [facility] for colonoscopy, given to Wanda to update meds & allergies documented in this encounter Plan of Treatment Upcoming Encounters Date Type Department Care Team (Late st Contact Info) Description 10/05/2024 2:00 PM EST Appointment [facility] Endoscopy [address] [place] [phone] Pedro Luis Tsai MD [address] [address] documented as of this encounter Visit Diagnoses Not on filedocumented in this encounter Care Teams Boomboat Operator Relationship Specialty Start Date End Date Eugenia Sparrow MD [address] [place] [address] PCP - General Internal Medicine 08/22/24 documented as of this encounter
== END 2024-09-26 10:06 | disposition home or self-care (01) ==
PROVIDERS: PCP Internal Medicine; Referring Provider Urology; Visit Provider Internal Medicine Nephrology
DX: I10 Essential (primary) hypertension (principal); N28.1 Cyst of kidney, acquired; R80.8 Other proteinuria
CPT/HCPCS: 99204

== ENCOUNTER → 2024-09-26 09:35 | Outpatient (BNVA) | payer OTHER, SELFPAY | PROVIDERS: PCP Internal Medicine; Referring Provider Urology; Visit Provider Internal Medicine Nephrology | DX: I12.9 Hypertensive chronic kidney disease with stage 1 through stage 4 chronic kidney disease, or unspecified chronic kidney disease (principal); N18.9 Chronic kidney disease, unspecified; N28.1 Cyst of kidney, acquired; R80.8 Other proteinuria | CPT/HCPCS: 99202 ==

== ENCOUNTER 2024-10-02 09:25 | Outpatient (REF) | payer OTHER, SELFPAY ==
[2024-10-02 09:55] LABS: MANUAL DIFF FLAG NO
--- OUTSIDE RECORDS SUMMARY | 2024-10-02 10:21 | XMS_ITS | Clinical Summary ---
Author Organization [facility] Address [address] [place] [address] Care Team Providers Care Horses Or Mules Teamster Name Role Phone Tamara Short MD Primary [...] age to complete this topic Care Teams Horses Or Mules Teamster Relationship Specialty Start Date End Date Tamara Short MD [address] [place] [address] PCP - General Internal Medicine 11/25/17
--- OUTSIDE RECORDS SUMMARY | 2024-10-02 10:21 | XMS_ITS | Clinical Summary ---
Author Organization 175 [facility] Address 175 [place] [address] Phone Care Team Providers Care Manager Group Home Name Role Phone Eugenia Sparrow MD Primary Care Provider [phone] Allergies Active Allergy Reactions Criticality Noted Date Comments Furosemide Hives Medium 08/22/2024 Lasix Lisinopril Cough 06/20/2020 Penicillins Anaphylaxis High 10/02/2009 Rash and itch [...] Care Team Description 08/22/2024 Telephone Gastroenterology - [place] 175 [facility] 175 [facility] [address] [place] [address] Javed Romeo MD Special Procedure [...] Contact Info) Description 10/05/2024 2:00 PM EST Hospital Encounter [facility] Endoscopy [address] [place] [address] Pedro Luis Tsai MD [address] [address] Health Maintenance Due Date Last Done Comments [...] patient's age to complete this topic Insurance [employer] Care Teams Manager Group Home Relationship Specialty Start Date End Date Eugenia Sparrow MD [address] [place] [address] PCP - General Internal Medicine 08/22/24
[2024-10-02 10:40] LABS: Basophils Absolute Auto 0.1 X10*3/uL (0.0-0.2); Basophils Percent Auto 1.1 % (0-2); Eosinophils Absolute Auto 0.4 X10*3/uL (0.0-0.4); Eosinophils Percent Auto 4.9 % (0-4); Hematocrit 49.5 % (42.0-52.0); Hemoglobin 17.6 g/dl (14.0-18.0); Imm Gran Abs Auto 0.04 X10*3/uL (0.00-0.03); Imm Gran Pct Auto 0.5 % (0.0-0.4); Lymphocytes Absolute Auto 1.8 X10*3/uL (1.2-4.9); Lymphocytes Percent Auto 22.6 % (20-40); Mean Corpuscular HGB Conc 35.6 g/dl (31.0-36.0); Mean Corpuscular Hemoglobin 32.9 pg (27.0-33.0); Mean Corpuscular Volume 92.5 fL (80.0-98.0); Mean Platelet Volume 9.9 fL (9.4-12.4); Monocytes Absolute Auto 0.6 X10*3/uL (0.1-1.2); Monocytes Percent Auto 7.8 % (2-11); Neutrophils Percent Auto 63.1 % (45-73); Platelet Count 277 X10*3/uL (160-400); Red Blood Count 5.35 X10*6/uL (4.60-5.80); Red Cell Distribution Width 12.2 % (11.0-16.0); White Blood Count 7.9 X10*3/uL (4.8-10.8)
[2024-10-02 10:53] LABS: Creatinine, mg/dL 116.53; Protein mg/dL 44 mg/dL
[2024-10-02 11:02] LABS: Prothrombin Time 11.5 SEC (10.9-12.4)
[2024-10-02 11:05] LABS: Creatinine, 24Hr Urine 1.9 G/Day (1.0-2.0); Protein 24 Hr Urine 704 mg/Day (<150); Total Volume 24 Hour Urine 1600 mL
[2024-10-02 11:07] LABS: Appearance Urine Clear; Color Urine Yellow; Glucose Urine UA Negative (Negative); Leukocyte Esterase Urine Negative (Negative); Nitrite Urine Negative (Negative); Specific Gravity - Urine 1.015 (1.005-1.025); UMIC TRIGGER UA YES; Urine Blood Negative (Negative); Urine Ketones Negative (Negative); Urine Protein 100 (2+) mg/dL (Neg-Trace)
[2024-10-02 11:10] LABS: Bacteria Urine None Seen (None Seen); Hyaline Casts Urine 0-2 /LPF (0-2); RBC Urine 0-2 /HPF (0-2); Squamous Epithelial Cell Urine 0-2 /HPF (0-2); WBC Urine 0-5 /HPF (0-5)
[2024-10-02 11:27] LABS: HBc Num1 0.08 S/CO (0.00-0.79); HBsAGNum1 0.25 S/CO (0.00-0.99); Hepatitis B Core Antibody Nonreactive (Nonreactive); Hepatitis B Surface Antigen Negative (Negative)
[2024-10-02 12:05] LABS: Creatinine Urine 118.42 mg/dL; Protein/Creatinine Ratio, Ur 0.47 (<0.2); Total Protein Urine Random 56 mg/dL (<12)
[2024-10-03 21:54] LABS: Complement C3 158 mg/dL (82-185)
[2024-10-04 04:49] LABS: IgA 494 mg/dL (47-310); IgG 1421 mg/dL (600-1640); IgM 70 mg/dL (50-300)
[2024-10-04 14:04] LABS: Anti DNA DS Antibody <1 IU/mL; Anti Glomerular Basement Memb <1.0 AI; Myeloperoxidase Antibody <1.0 AI; Proteinase 3 PR3 Antibodies <1.0 AI
[2024-10-08 22:58] LABS: Phospholipase A2 IgG ELISA 4 RU/mL; Phospholipase A2 IgG IFA NEGATIVE (NEGATIVE)
== END 2024-10-02 09:26 | disposition home or self-care (01) ==
LOC: HO.LAB 09:25
PROVIDERS: PCP Internal Medicine; Visit Provider Internal Medicine Nephrology
DX: I10 Essential (primary) hypertension (principal); R80.8 Other proteinuria; N28.1 Cyst of kidney, acquired; R80.9 Proteinuria, unspecified
CPT/HCPCS: 81001; 81003; 82570; 82784; 83520; 84156; 85025; 85610; 86021; 86160; 86225; 86255; 86334; 86335; 86704; 87340

== ENCOUNTER 2024-10-12 14:00 | Outpatient (REF) | payer OTHER, SELFPAY ==
[2024-10-12 16:55] LABS: Urine Cytology See Pathology rpt
--- OUTSIDE RECORDS SUMMARY | 2024-10-12 19:12 | XMS_ITS | Clinical Summary ---
Author Organization [facility] Address [address] [place] [address] Care Team Providers Care Ring Sewer Name Role Phone Tamara Short MD Primary [...] age to complete this topic Care Teams Ring Sewer Relationship Specialty Start Date End Date Tamara Short MD [address] [facility] [place] [address] PCP - General Internal Medicine 11/25/17
--- OUTSIDE RECORDS SUMMARY | 2024-10-12 19:12 | XMS_ITS | Encounter Summary ---
Author Organization [facility] Address [address] [place] [address] Care Team Providers Care Steamer Gum Candy Name Role Phone Eugenia Sparrow MD Primary Care Provider [phone] Reason for Referral * Hospital - Outpatient (Routine) - Closed Specialty Diagnoses / Procedures Referred By Itzel weaver Referred To Contact Gastroenterology Diagnoses Hx of colonic polyps Procedures COLONOSCOPY Anesthesia - MAC; [facility] ENDOSCOPY Pedro Luis Le MD [address] [address] Phone: tel: fax: [facility] Endoscopy [address] [place] [address] Phone: tel: Referral ID Status Reason Start Date Expiration Date Visits Re quested Visits Authorized [id number] Closed 08/29/2024 08/29/2025 1 1 Reason for Visit * Hospital - Outpatient (Routine) - Closed Specialty Diagnoses / Procedures Referred By Itzel weaver Referred To Contact Gastroenterology Diagnoses Hx of colonic polyps Procedures COLONOSCOPY Anesthesia - MAC; [facility] ENDOSCOPY Pedro Luis Le MD [address] [address] Phone: tel: fax: [facility] Endoscopy [address] [place] [address] Phone: tel: Referral ID Status Reason Start Date Expiration Date Visits Re quested Visits Authorized [id number] Closed 08/29/2024 08/29/2025 1 1 Encounter Details Date Type Department Care Team (Latest Contact Info) Description 10/05/2024 1:05 PM EST - 10/05/2024 11:59 PM EST Hospital Encounter [facility] Endoscopy [address] [place] [address] Pedro Luis Le MD 299 [facility] [phone] Nadir Eli CRNA [address] [place] [address] Zachary Macedo MD 114 [facility] [address] [place] [address] Hx of colonic polyps Discharge Disposition: Home [...] sent through Care Everywhere. * Colonoscopy: Post-op (New Zealander) * Colon Polyps (New Zealander) documented in this encounter Medications at Time [...] encounter Results * COLONOSCOPY Anesthesia - MAC; [facility] ENDOSCOPY (10/05/2024 2:13 PM EST) Anatomical Region [...] for surveillance. Narrative 10/05/2024 2:15 PM EST [facility] GI Patient Name: Boone Gonzales Procedure [...] Procedure Code(s): ? --- Professional --- ? 16576, Colonoscopy, flexible; with removal of ? tumor(s), polyp(s), or other lesion(s) by snare ? technique ? 68754, 59, Colonoscopy, flexible; with biopsy, single ? or multiple Diagnosis Code(s): ? --- Professional --- ? Z86.010, Personal history of colonic polyps ? D12.8, Benign neoplasm of rectum ? D12.3, Benign neoplasm of transverse colon (hepatic ? flexure or splenic flexure) CPT copyright 202 [employer]. All rights reserved. The codes documented in this report are preliminary and upon tread booker review may be revised to meet current compliance requirements. MD Pedro Luis Kasper MD 10/05/2024 2:15:09 PM This report has been signed electronically.Pedro Luis Le MD Number of Addenda: 0 Note Initiated On: 10/05/2024 1:50 PM Scope In: Scope Out: ? Endoscopy Department at [facility] - [address] [place] [address], ? [phone] Procedure Note Pedro Luis Le MD - 10/05/2024 [facility] GI Patient Name: Boone Gonzales Procedure [...] without abnormality. Procedure Code(s): --- Professional --- 99498, Colonoscopy, flexible; with removal of tumor(s), polyp(s), or other lesion(s) by snare technique 59978, 59, Colonoscopy, flexible; with biopsy,single or multiple Diagnosis Code(s): --- Professional --- Z86.010, Personal history of colonic polyps D12.8, Benign neoplasm of rectum D12.3, Benign neoplasm of transverse colon (hepatic flexure or splenic flexure) CPT copyright 2020 [employer]. All rights reserved. The codes documented in this report are preliminary and upon tread booker reviewmay be revised to meet current compliance requirements. MD Pedro Luis Kasper MD 10/05/2024 2:15:09 PM This report has been signed electronically.Pedro Luis Le MD Number of Addenda: 0 Note Initiated On: 10/05/2024 1:50 PM Scope In: Scope Out: Endoscopy Department at [facility] - [address] [place] [phone] IMPRESSION: - One 6 mm polyp in [...] results. - Repeat colonoscopy in 5-[facility] Pedro Luis Le MD GI~PROCEDURE ORDERABLES Final R esult * Tissue exam (10/05/2024 2:06 PM EST) Final Diagnosis A. Large Intestine, Transverse Colon, polyp x1: - Tubular adenoma. B. Large Intestine, Rectum, polyp: - Polypoid rectal mucosa with prominent reactive lymphoid aggregates. - Negative for dysplasia. 10/06/2024 10:36 AM EST [facility] ([facility]) HOSPITAL LAB Gross Description A. Large Intestine, [...] on one slide. EVA 10/06/2024 10:36 AM [facility] LAB Disclaimer Unless otherwise specified, all tissue is 10% NB formalin fixed and paraffin embedded. 10/06/2024 10:36 AM [facility] Tissue Transverse colon structure / Unknown 10/05/2024 2:06 PM EST 10/05/2024 3:20 PM EST Tissue specimen (specimen) Rectum structure / Unknown 10/05/2024 2:10 PM EST 10/05/2024 3:20 PM EST Pedro Luis Le MD LAB PATHOLOGY ORDERABLES Final Result [facility] [address] [place] [address], documented in this encounter Visit Diagnoses Diagnosis Hx of colonic polyps Personal history of colonic polyps documented in this encounter Orders Discharge Count Last Ordered Date First Orde red Date DISCHARGE PATIENT 1 10/05/2024 documented in this encounter Care Teams Steamer Gum Candy Relationship Specialty Start Date End Date Eugenia Sparrow MD [address] [place] [address] PCP - General Internal Medicine 08/22/24 documented as of this encounter
--- OUTSIDE RECORDS SUMMARY | 2024-10-12 19:12 | XMS_ITS | Encounter Summary ---
Author Organization [facility] Address [address] [place] [address] Care Team Providers Care All Round Logger Name Role Phone Eugenia Sparrow MD Primary Care Provider Encounter Details Date Type Department Care Team (Late st Contact Info) Description 10/05/2024 1:50 PM EST Anesthesia Event [facility] Endoscopy [address] [place] [phone] Zachary Harry MD [address] [place] [address] [address] [place] [address] Anesthesia Record Procedure Summary Procedure Name Responsible [...] Procedure Summary Date: 10/05/24 Room / Location: [facility] Endoscopy Anesthesia Start: 1350 Anesthesia [...] known notable events for this encounter. * Zachary Harry MD - 10/05/2024 1:15 PM EST [...] discussed with patient. Anesthesia Plan discussed with MRI TECHNICIAN. Anesthesia Evaluation No history of anesthetic complications [...] mg documented in this encounter Care Teams All Round Logger Relationship Specialty Start Date End Date Eugenia Sparrow MD [address] [place] [address] PCP - General Internal Medicine 08/22/24 documented as of this encounter
--- OUTSIDE RECORDS SUMMARY | 2024-10-12 19:12 | XMS_ITS | Encounter Summary ---
Author Organization [facility] Address [address] [place] [address] Care Team Providers Care Respiratory Therapist Assistant Name Role Phone Eugenia Sparrow MD Primary Care Provider [phone] Reason for Visit * Reason Onset Date Comments Results 10/10/2024 Encounter Details Date Type Department Care Team (Late st Contact Info) Description 10/10/2024 Telephone Gastroenterology - [address] [place] [address] Martine Quintanilla MA Results Social History [...] 10/10/2024 4:16 PM EDT Lmom to cb (scottish and ukrainian) Per Dr. Tsai He did undergo a colonoscopy on 10/05 and had a smalltubular adenoma in the transverse colon. A larger rectal poly was totally benign. Would consider a 5 year recall documented in this encounter Plan of Treatment Not on file documented as of this encounter Visit Diagnoses Not on filedocumented in this encounter Care Teams Respiratory Therapist Assistant Relationship Specialty Start Date End Date Eugenia Sparrow MD [address] [place] [address] PCP - General Internal Medicine 08/22/24 documented as of this encounter
--- OUTSIDE RECORDS SUMMARY | 2024-10-12 19:12 | XMS_ITS | Clinical Summary ---
Author Organization [address] [facility] Address [address] [place] [address] Phone Care Team Providers Care Flooring Professional Name Role Phone Eugenia Sparrow MD Primary Care Provider [phone] Allergies Active Allergy Reactions Criticality Noted Date [...] Team Description 10/10/2024 Telephone Gastroenterology - 299 [facility] 299 [facility] [address] [place] [phone] Martine Quintanilla MA Results 10/05/2024 1:50 PM EST Anesthesia Event [facility] Endoscopy [address] [place] [phone] Zachary Harry MD 10/05/2024 1:05 PM EST - 10/05/2024 11:59 PM EST Hospital Encounter [facility] Endoscopy [address] [place] [phone] Pedro Luis Tsai MD Hayes, Brett L, CRNA Gomes, Sheldon B, MD Hx of colonic polyps Discharge Disposition: Home or Self Care 08/22/2024 Telephone Gastroenterology - [place] 175 [facility] 175 [facility] [address] [place] [phone] Javed Romeo MD Special Procedure from Last [...] Months Results * COLONOSCOPY Anesthesia - MAC; [facility] ENDOSCOPY (10/05/2024 2:13 PM EST) Anatomical Region [...] for surveillance. Narrative 10/05/2024 2:15 PM EST [facility] GI Patient Name: Boone Gonzales Procedure [...] Procedure Code(s): ? --- Professional --- ? 56528, Colonoscopy, flexible; with removal of ? tumor(s), polyp(s), or other lesion(s) by snare ? technique ? 24621, 59, Colonoscopy, flexible; with biopsy, single ? or multiple Diagnosis Code(s): ? --- Professional --- ? Z86.010, Personal history of colonic polyps ? D12.8, Benign neoplasm of rectum ? D12.3, Benign neoplasm of transverse colon (hepatic ? flexure or splenic flexure) CPT copyright 2020 [employer]. All rights reserved. The codes documented in this report are preliminary and upon canvas goods maker review may be revised to meet current compliance requirements. MD Pedro Luis Kasper MD 10/05/2024 2:15:09 PM This report has been signed electronically.Pedro Luis Tsai MD Number of Addenda: 0 Note Initiated On: 10/05/2024 1:50 PM Scope In: Scope Out: ? Endoscopy Department at [facility] - [address] [place] [address], ? [place] [address] Procedure Note Pedro Luis Tsai MD - 10/05/2024 [facility] GI Patient Name: Boone Gonzales Procedure [...] without abnormality. Procedure Code(s): --- Professional --- 54552, Colonoscopy, flexible; with removal of tumor(s), polyp(s), or other lesion(s) by snare technique 63070, 59, Colonoscopy, flexible; with biopsy,single or multiple Diagnosis Code(s): --- Professional --- Z86.010, Personal history of colonic polyps D12.8, Benign neoplasm of rectum D12.3, Benign neoplasm of transverse colon (hepatic flexure or splenic flexure) CPT copyright 2020 [employer]. All rights reserved. The codes documented in this report are preliminary and upon canvas goods maker reviewmay be revised to meet current compliance requirements. MD Pedro Luis Kasper MD 10/05/2024 2:15:09 PM This report has been signed electronically.Pedro Luis Tsai MD Number of Addenda: 0 Note Initiated On: 10/05/2024 1:50 PM Scope In: Scope Out: Endoscopy Department at [facility] - [address] [place] [phone] IMPRESSION: - One 6 mm polyp in [...] - Negative for dysplasia. 10/06/2024 10:36 AM [facility] Gross Description A. Large Intestine, Transverse [...] on one slide. EVA 10/06/2024 10:36 AM [facility] Disclaimer Unless otherwise specified, all tissue is 10% NB formalin fixed and paraffin embedded. 10/06/2024 10:36 AM [facility] Tissue Transverse colon structure / Unknown 10/05/2024 2:06 PM EST 10/05/2024 3:20 PM EST Tissue specimen (specimen) Rectum structure / Unknown 10/05/2024 2:10 PM EST 10/05/2024 3:20 PM EST us Pedro Luis Tsai MD LAB PATHOLOGY ORDERABLES Final Result [facility] H[facility] LAB [address] [place] [address], from Last 3 Months Insurance [facility] Care Teams Flooring Professional Relationship Specialty Start Date End Date Eugenia Sparrow MD [address] [place] [phone] PCP - General Internal Medicine 08/22/24
== END 2024-10-12 14:01 | disposition home or self-care (01) ==
LOC: HO.LAB 14:00
PROVIDERS: PCP Internal Medicine; Visit Provider Urology
DX: N39.0 Urinary tract infection, site not specified (principal)
CPT/HCPCS: 88112

== ENCOUNTER 2024-10-12 14:00 | Outpatient (AMB) | payer OTHER, SELFPAY ==
--- NOTE | 2024-10-12 14:03 | MHC.OFFVIS ---
Intake Visit Reasons: Cystoscopy Intake Note: Patient is present for Cystoscopy Urology Medication: TADALAFIL,OXYBUTYNIN Antibiotic Allergy:PENICILLIN Blood Thinner:NONE Lot:[id number] Exp:06/05/27 Remittance Clerk Required: No Allergies Penicillins Allergy (Severe, Verified 10/30/24 13:48) Anaphylaxis furosemide [From Lasix] Allergy (Intermediate, Verified 10/30/24 13:48) hive HPI Comments Details: 10/12/24--Here for office cystoscopy. 54-year-old male presenting with a history of urothelial carcinoma of the bladder for surveillance cystoscopy. He has been experiencing lower urinary tract symptoms, predominantly characterized by urgency and urge incontinence. These symptoms have been effectively managed with the medication oxybutynin, which has prevented any leakage incidents while on therapy. In relation to his previous nephrology referral due to proteinuria, he has completed a 24-hour urine collection. Recent abdominal ultrasound showed small bilateral simple kidney cysts without evidence of renal stones. Urinary Symptoms Review - Urgency and urge incontinence effectively managed with oxybutynin. - No recent episodes of urinary leakage while on oxybutynin. - No reported hematuria. Results - Labs: Urine to be sent for cytology testing. - Tests: Abdominal ultrasound noted bilateral small simple kidney cysts, no renal calculi; no suspicious lesions. - Procedures: Office Cystoscopy performed today - no recurrent bladder lesions noted. 08/31/24-Boone is here in follow-up he is on oxybutynin due to overactive bladder symptoms he states when he does not take the medication he notices the difference and has leaked on himself. History of urothelial cancer Urinalysis negative for blood, positive for protein. Follow-up in September for office cystoscopy. Refer to nephrology for proteinuria 10/20/23--Boone is a 53-year-old male is scheduled for office cysto, h/o superfical bladder cancer. I reviewed renal ultrasound 10/01/2023 is within normal limits, estimated prostate size 51 mL. He denies irritative voiding symptoms denies gross hematuria. He states that he has to push sometimes to empty. Cystoscopy - moderate trabeculations, will continue with surveillance. 12/31/22-- The patient has history of superficial bladder cancer. He states doing well overall. The patient states that he had an allergic reaction to IV contrast on prior CAT scan. 12/31/22- Telehealth- discussed PSA results reviewed--11/19/22--0.86. Continue yearly surveillance with cystoscopy. Renal US prior was ordered. 10/05/22--Boone is a 52 year old male patient of who presents to the office today for office cystoscopy. He was seen by [facility] as a new patient for a history of bladder cancer. Patient reports initial diagnosis of bladder cancer was approximately 2010. He states he was following up with [facility] from 2010 to 2019 however due to financial circumstances has been unable to attend follow up appointments due to a balance he has with Dr. Roman. Patient also reports at some point from [id number] [facility] and having surgery there on his ureters due to invasion of bladder tumor. At this time there are no records to be reviewed however will attempt to obtain records. When asked patient reports last cystoscopy to be in 2018 prior to covid pandemic.In discussion with the patient today regarding urological medications patient reports to be doing well on oxybutynin. He reports having some urinary urgency and frequency after many TURBTs and this medication is what works well for him. He has had multiple TURBTs. He denies intravesical bladder treatments. In review of the patient's chart retroperitoneal ultrasound (04/2022) given patients history of bladder cancer. Bilateral renal cysts not appreciably changed from 2020, no hydronephrosis, no bladder mass or wall thickening appreciated. Small post void bladder. Enlarged prostate gland. PSA level was 0.9 in June 2022.The patient is however reporting low libido and erectile dysfunction. Evaluation today: UA negative for infection and or blood. office for cystoscopy --bladder mild/mod trabeculations, and cellule changes, no suspicious bladder lesions visualized. Plan: H/O superficial TCC, OAB, monitor PVR fu in 7 weeks [facility] Medical History Rheumatoid arthritis Rash Hypothyroid HTN (hypertension) Nocturnal hypoxemia AMANDEEP (obstructive sleep apnea) Obesity (BMI 30-39.9) Encounter to establish care Surgical History H/O transurethral resection of bladder tumor (TURBT) History of colonoscopy Family History Mother Breast cancer Father Heart attack CKD (chronic kidney disease) requiring chronic dialysis Brother No problems noted. Sister No problems noted. Sister No problems noted. Daughter No problems noted. Daughter No problems noted. Social History Housing: House Alcohol intake: current Alcohol intake frequency: a few times a month Alcohol type: wine Patient Tobacco Use Status: Never used Tobacco e-Cigarette/Vaping Use: Never Used Second Hand Smoke Exposure: No service: No Current occupational status: employed Current occupational exposures/hazards: No Cognitive needs: No Hearing needs: No Vision needs: No Office Procedures Cystoscopy Consent Discussed risk and benefit or proposed procedure with the patient. Information consent for procedure given to the patient. Discussed technical aspects, risks, benefits and alternatives in full. Addressed all of the patient's questions and concerns regarding the procedure. The patient demonstrated knowledge and understanding. They wish to proceed with this procedure. Preparation The patient was prepped in the usual manner. A physical fitness trainer was present and in the room. Genitalia was prepped with betadine solution in a sterile manner. Lidocaine Jelly 2% was placed into the urethra and 16Fr flexible Olympus cystoscope was inserted into the meatus after adequate lubrication. Procedure Time out per protocol performed. The flexible cystoscope is passed transurethrally: The bladder was inspected in its entirety with utilization retroflexion displaying: Tumor(s): no suspicious bladder lesions visualized Trabeculation: Mild Mucosal Erthema: NA Orifices: normal shape and position Urethra: normal Cystoscopy findings: prostatic urethra non obstructive, mild bilobar enlargement bulbous urethra WNL, no suspicious bladder lesions visualized [id number] DISPOSABLE SCOPE URO-G FLEXIBLE SCOPE Procedure code (CPT) selection complete Office Meds lidocaine HCl 2 % mucosal jelly in applicator Performing Provider: Edilson Sheridan MD [facility] Administered by: Elizabeth Son RN on 10/12/24 14:52 Dose Route Admin Location Dispensed Lot Number Expiration Date ND Margarine Maker 20 mL intra-urethral 20 mL ciprofloxacin HCl 500 mg tablet Performing Provider: Edilson Sheridan MD [place] Administered by: Elizabeth Son RN on 10/12/24 14:52 Dose Route Admin Location Dispensed Lot Number Expiration Date NDC Margarine Maker 500 mg PO 1 tab phenazopyridine 200 mg tablet Performing Provider: Edilson Sheridan MD Performing Location[place] [facility] Administered by: Elizabeth Son RN on 10/12/24 14:52 Dose Route Admin Location Dispensed Lot Number Expiration Date NDC Margarine Maker 200 mg PO 1 tab Results AMB Urinalysis, Automated UA Leukoctes 0 Kalie/uL Last Edit by POOJA Jimenez on 10/12/24 14:24 UA Nitrite Negative Last Edit by POOJA Jimenez on 10/12/24 14:24 UA Urobilinogen 17 mg/dL Last Edit by POOJA Jimenez on 10/12/24 14:24 UA Protein 1 mg/dL Last Edit by POOJA Jimenez on 10/12/24 14:24 UA pH 6.0 Last Edit by POOJA Jimenez on 10/12/24 14:24 UA Blood 0 Kenyon/uL Last Edit by POOJA Jimenez on 10/12/24 14:24 UA Specific Concan 1.020 Last Edit by POOJA Jimenez on 10/12/24 14:24 UA Ketone Negative Last Edit by POOJA Jimenez on 10/12/24 14:24 UA Bilirubin 0 mg/dL Last Edit by POOJA Jimenez on 10/12/24 14:24 UA Glucose 15 mg/dL Last Edit by POOJA Jimenez on 10/12/24 14:24 Results Reviewed Results Reviewed: Laboratory Last Values Urine pH (Auto) 6.0 10/12/24 14:23 Specific Concan (Auto) 1.020 10/12/24 14:23 Urine Protein (Auto) 1 mg/dL 10/12/24 14:23 Glucose (UA)(Auto) 15 mg/dL 10/12/24 14:23 Urine Ketones (Auto) Negative 10/12/24 14:23 Urine Blood (Auto) 0 Kenyon/uL 10/12/24 14:23 Urine Nitrite (Auto) Negative 10/12/24 14:23 Urine Bilirubin (Auto) 0 mg/dL 10/12/24 14:23 Urine Urobilinogen (Auto) 17 mg/dL 10/12/24 14:23 Leukocyte Esterase (Auto) 0 Kalie/uL 10/12/24 14:23 Date of Service: 09/20/24 US COMPLETE ABDOMEN WITH LIVER ELASTOGRAPHY CLINICAL INFORMATION: Elevated LFTs. COMPARISON: Abdomen US 03/31/2022. No prior elastography. TECHNIQUE: Real-time imaging of the abdominal viscera. Noninvasive ultrasound liver fibrosis assessment is performed using Glenis ElastPQ point quantification shear wave elastography (pSWE) with a C5-2 MHz transducer. Multiple elastography samples are obtained. FINDINGS: PANCREAS: The visualized pancreatic head and body are normal in appearance. The remainder of the pancreas is obscured from visualization by the overlying bowel gas. ABDOMINAL AORTA: No aortic aneurysm is seen. INFERIOR VENA CAVA: Visualized portions are normal. LIVER: The liver is normal in size. There is normal contour. There is diffusely increased hepatic echogenicity, without suspicious focal lesion. There is a calcification measuring 7 mm in the left lobe inferiorly. The right lobe measures 14.3 cm in length. The left lobe measures 11.2 cm in length. Portal flow is towards the liver (hepatopetal). Shear wave liver elastography median stiffness is 1.85 m/s (reference: normal median stiffness is 1.3 m/s or less). IQR/median stiffness to assess sampling precision is 0.10 (reference: good quality data set is IQR/median stiffness of 0.15 or less). GALLBLADDER: Gallbladder is surgically absent. COMMON BILE DUCT: Normal in caliber measuring 0.3 cm in diameter. RIGHT KIDNEY: No hydronephrosis. No renal calculi or suspicious focal parenchymal lesions. The kidney measures 12.1 cm in maximum dimension. There are several cortical cysts, largest in the upper pole measuring 2.5 cm. LEFT KIDNEY: No hydronephrosis. No renal calculi or suspicious focal parenchymal lesions. The kidney measures 11.6 cm in maximum dimension. There are several cortical cysts, largest in the upper pole measuring 2.7 cm. SPLEEN: Unremarkable. The spleen measures 7.9 cm in maximum dimension. FREE FLUID: None seen. US/US abdomen comp w elastography IMPRESSION: 1. Diffusely increased hepatic echogenicity without discrete focal lesion. 2. Liver elastography: Measurements are suggestive of compensated advanced chroniic liver disease but need further test for confirmation. 3. Cholecystectomy. 4. Bilateral renal cysts. Date of Service: 10/01/23 EXAMINATION: US RETROPERITONEAL COMPLETE (RENAL) CLINICAL INFORMATION: Personal history of malignant neoplasm of bladder. COMPARISON: Ultrasound kidneys and bladder 04/30/2022. Ultrasound abdomen limited 03/31/2022. TECHNIQUE: Real-time imaging of the kidneys and bladder. FINDINGS: RIGHT KIDNEY: 11.4 x 6.3 x 5.2 cm (SAG x AP x TRV). The kidney is normal in size, contour, and echogenicity. Renal cortical thickness is normal. No renal calculi or hydronephrosis. There is 2.3 x 1.9 x 2.3 cm cyst with calcifications in the lower pole and there is fullness of collecting system. LEFT KIDNEY: 10.8 x 5.2 x 4.9 cm (SAG x AP x TRV). The kidney is normal in size, contour, and echogenicity. Renal cortical thickness is normal. No renal calculi or hydronephrosis. Multiple cortical cysts present with the largest in the upper pole measured 2.6 x 1.5 x 2.2 cm with caliectasis. BLADDER: Well distended and normal. Left ureteral jet is demonstrated; right is not. Prevoid bladder volume is 213.4 mL. Postvoid bladder volume is 87.0 mL. ADDITIONAL FINDINGS: A volume of prostate measured 51 mL IMPRESSION: 1. Bilateral renal cysts. 2. Large post void residual. Assessment & Plan Assessment & Plan (1) Screening PSA (prostate specific antigen): Code(s): Z12.5 - Encounter for screening for malignant neoplasm of prostate Category: Medical (2) Proteinuria: Code(s): R80.9 - Proteinuria, unspecified Category: Medical Qualifiers: Proteinuria type: other Qualified Code(s): R80.8 - Other proteinuria (3) OAB (overactive bladder): Code(s): N32.81 - Overactive bladder Category: Medical (4) History of bladder cancer: Code(s): Z85.51 - Personal history of malignant neoplasm of bladder Category: Medical Plan Plan cystoscopy for surveillance of the patient's h/o urothelial carcinoma of the bladder, revealing no recurrences. His lower urinary tract symptoms continue to respond well to oxybutynin, preventing urinary incontinence. Tamsulosin. The urine has been ordered for cytology, and the patient completed the nephrology-directed 24-hour urine assessment. A follow-up ultrasound for renal status is planned, with continued nephrology follow-up as previously initiated. The patient will return for surveillance cystoscopy in one year unless symptoms dictate sooner evaluation. Orders: Orders AMB Urinalysis Automated 10/12/24 Z13.9 - Encounter for screening, unspecified Urine Cytology 10/12/24 N39.0 - Urinary tract infection, site not specified AMB Cystoscopy 10/12/24 N40.1 - Benign prostatic hyperplasia with lower urinary tract symptoms, Z85.51 - Personal history of malignant neoplasm of bladder Patient Instructions: The patient had an opportunity to ask questions regarding treatment plan. The patient expressed understanding and agreement with the above treatment plan. The patient is aware they should contact our office by phone for worsening of their current condition or the appearance of new symptoms. Compliance is encouraged with any medications and followup testing that is ordered. It is a privilege to be allowed the opportunity to participate in the urologic care of your patient. If you have any questions or concerns regarding treatment for the above conditions please do not hesitate to contact me. The office telephone contact is [phone]. This note is constructed in part using voice recognition software. While every effort has been made to ensure accuracy transcriptionist errors may have been included. Yours sincerely, Edilson Sheridan MD Scribe Plan - Not visible on output: Patient was informed and verbally consented to the use of an ambient scribe for clinic note documentation during this visit. Coding Level of Care Code Est Pt Level 3 (47023) Complex EM visit Add On G2211 Diagnoses Screening PSA (prostate specific antigen) Z12.5 Other proteinuria R80.8 Proteinuria type: other OAB (overactive bladder) N32.81 History of bladder cancer Z85.51 CPT Codes Cystoscopy - CPT: 37181-[id number] ([id number])
--- OUTSIDE RECORDS SUMMARY | 2024-10-12 17:49 | XMS_ITS | Encounter Summary ---
Author Organization [facility] Address [address] [place] [id number] Care Team Providers Care Groundwater Consultant Name Role Phone Eugenia Sparrow MD Primary Care Provider [phone] Reason for Visit * Reason Onset Date Comments Results 10/10/2024 Encounter Details Date Type Department Care Team (Late st Contact Info) Description 10/10/2024 Telephone Gastroenterology - [address] [place] [address] Martine Quintanilla MA Results Social History Tobacco Use Types Packs/Day Years Used Date Smoking Tobacco: Never Smokeless Tobacco: Never Alcohol Use Standard Drinks/Week Comments Yes 0 (1 standard drink = 0.6 oz pur e alcohol) Interpersonal Safety Answer Date Record ed Physical Abuse 10/05/2024 Verbal Abuse 10/05/2024 Sex and Gender Information Value Date Recorded Sex Assigned at Male 10/03/2024 8:22 AM EST Legal Sex Male 4:35 AM EST Gender Identity Male 10/03/2024 8:22 AM EST Sexual Orientation Straight 10/05/2024 12 :59 PM EST documented as of this encounter Progress Notes * Martine Quintanilla MA - 10/11/2024 12:19 PM EDT Bx results below given. Recall entered. * Mercedes Phelps - 10/11/2024 9:27 AM EDT Pt returning you call, please call back * Martine Quintanilla MA - 10/10/2024 4:16 PM EDT Lmom to cb (jordanian and estonian) Per Dr. Tsai He did undergo a colonoscopy on 10/05 and had a smalltubular adenoma in the transverse colon. A larger rectal poly was totally benign. Would consider a 5 year recall documented in this encounter Plan of Treatment Not on file documented as of this encounter Visit Diagnoses Not on filedocumented in this encounter Care Teams Groundwater Consultant Relationship Specialty Start Date End Date Eugenia Sparrow MD [address] [place] [address] PCP - General Internal Medicine 08/22/24 documented as of this encounter
--- OUTSIDE RECORDS SUMMARY | 2024-10-12 17:49 | XMS_ITS | Encounter Summary ---
Author Organization [facility] Address [address] [place] [address] Care Team Providers Care Barrel Bung Remover And Dumper Name Role Phone Eugenia Sparrow MD Primary Care Provider [phone] Encounter Details Date Type Department Care Team (Late st Contact Info) Description 10/05/2024 1:50 PM EST Anesthesia Event [facility] Endoscopy [address] [place] [id number] Zachary Harry MD [address] [place] [address] [address] [place] [address] Anesthesia Record Procedure Summary Procedure Name Responsible Anesthesiologist Anesthesia Start Time Anesthesia Stop Time COLONOSCOPY Zachary Harry MD 10/05/24 1350 5 1417 Events Date Time Event Comment 10/05/2024 1324 1350 An Start 1350 An Start Data The patient wa s reevaluated immediately before moderate or deep sedation use and before anesthesia induction. 1351 In Room 1351 Anesthesia Ready 1402 An Surgeon on Cuff 1413 an stop data 1413 Out of Room 1415 Handoff to RN I completed my handoff to the receiving nurse during which we: 1. Identified the patient 2. Identified the responsible provider 3. Reviewed the pertinent medical history 4. Discussed the surgical course 5. Reviewed intra-op anesthesia management and issues during anesthesia 6. Set expectations for post-procedure period 7. Allowed opportunity for questions and acknowledgement of understanding. 1417 An Stop Meds Name Total propofol (DIPRIVAN) injection 10 mg/mL 2 50 mg lidocaine PF (XYLOCAINE-MPF) local injec tion 2% 50 mg labetalol (NORMODYNE) 5 mg/mL injection 10 mg lactated Ringer's infusion 500 mL * Agents No agents on file. * Blood No blood administrations on file. Lines, Drains, and Airways Type Details Placement Removal Peripheral IV Placement Date: 01/24; Placement Time: 132; Catheter Size: 20 G; Orientation: Right, Posterior; Location: Hand; Insertion Attempts: 1; Patient Tolerance: Tolerated well; Removal Date: 10/05/24; Removal Time: 1449 10/05/24 1326 by Sheron Arce RN 10/05/24 1449 by Yesenia Dietz RN documented in this encounter Social History Tobacco Use Types Packs/Day Years [...] as of this encounter Progress Notes * Nadir Eli CRNA - 10/05/2024 2:23 PM EST Patient: Boone Gonzales Procedure Summary Date: 10/05/24 Room / Location: [facility] Endoscopy Anesthesia Start: 1350 Anesthesia Stop: 1417 Procedure: COLONOSCOPY Diagnosis: Hx of colonic polyps (High risk colon cancer surveillance: Personal history of colonic polyps) Scheduled Providers: Pedro Luis Tsai MD; Nadir Eli CRNA; Zachary Harry MD Responsible Provider: Zachary Harry MD Anesthesia Type: MAC ASA Status: 2 Anesthesia Plan: MAC Last Vitals: Vitals Value Taken Time BP 145/109 10/05/24 1414 Temp 36 10/05/24 1423 Pulse 89 10/05/24 1414 Resp 20 10/05/24 1414 SpO2 93 % 10/05/24 1414 No data recorded Anesthesia Post Evaluation Patient location during evaluation: PACU Patient participation: complete - patient participated Level of consciousness: awake Pain score: 0 Pain management: adequate Airway patency: patent Anesthetic complications: no Cardiovascular status: acceptable and blood pressure returned to baseline Respiratory status: acceptable Hydration status: acceptable Nausea: No There were no known notable events for this encounter. * Zacahry Harry MD - 10/05/2024 1:15 PM EST 54 y.o. male scheduled for Hx of colonic polyps [COLONOSCOPY] Ht Readings from Last 1 Encounters: No data found for Ht Wt Readings from Last 1 Encounters: No data found for Wt There is no height or weight on file to calculate BMI. Past Medical History: Diagnosis Date Anxiety 01/23/2009 DX:Anxiety Benign bladder tumor 06/20/2020 DX:Benign bladder tumor Benign prostatic hyperplasia 11/01/2012 DX:Benign prostatic hyperplasia Chronic neck pain 01/12/2013 DX:Chronic neck pain DDD (degenerative disc disease), cervical 06/20/2020 DX:DDD (degenerative disc disease), cervical; COMMENT: 3-5. Also lumbar, no known herniated disc. Depression 06/20/2020 DX:Depression ED (erectile dysfunction) 06/20/2020 DX:ED (erectile dysfunction) Elevated liver enzymes DX:Elevated liver enzymes Family history of colon cancer 03/03/2010 DX:Family history of colon cancer; COMMENT: Two uncles on the father side Fatty liver 01/23/2009 DX:Fatty liver Fatty liver DX:Fatty liver GERD (gastroesophageal reflux disease) 01/14/2012 DX:GERD (gastroesophageal reflux disease) High cholesterol 01/23/2009 DX:High cholesterol HTN (hypertension) 07/29/2011 DX:HTN (hypertension) Hypothyroidism 01/23/2009 DX:Hypothyroidism Osteoarthritis 06/20/2020 DX:Osteoarthritis Stasis edema of both lower extremities 06/20/2020 DX:Stasis edema of both lower extremities Urge incontinence 06/20/2020 DX:Urge incontinence Urinary frequency 09/12/2012 DX:Urinary frequency; COMMENT: Patient is following to Dr Aguiar. Had cystoscopy and was recommended additional surgery on 09/2012. Had a benign bladder tumor. Past Surgical History: Procedure Laterality Date BLADDER SURGERY 08/2015 PROCEDURE: HISTORICAL BLADDER SURGERY; COMMENT: benign tumors in bladder 07/13/2019 as well. COLONOSCOPY 09/12/2018 PROCEDURE: HISTORICAL COLONOSCOPY; COMMENT: 10mm hyperplastic polyp removed sigmoid colon, internalhemorrhoids, otherwise normal. Repeat 5 years. OTHER SURGICAL HISTORY 09/2020 PROCEDURE: ---- OTHER ----; COMMENT: transurethral resection of bladder tumor OTHER SURGICAL HISTORY 10/2020 PROCEDURE: HISTORY OTHER; COMMENT: robotic reimplantation ureteral bilateral, bilateral ureer stentplacement Anesthesia complications Denies Allergies Allergen Reactions Penicillins Anaphylaxis Rash and itch of mouth. Furosemide Hives Lasix Iodinated Contrast Media Lisinopril Cough Latex Rash No reaction documented. Prior to Admission medications Medication Sig Start Date End Date Taking? Authorizing Provider acetaminophen (TYLENOL) 500 mg tablet Take 2 tablets (1,000 mg total) by mouth every 6 (six) hours if needed for mild pain. Historical Provider, amLODIPine (NORVASC) 5 mg tablet Take 1 tablet (5 mg total) by mouth 1 (one) time each day. Historical Provider, bisacodyL (DULCOLAX) 5 mg EC tablet Take 2 tablets by mouth right before beginning bowel prep. See instructions provided by the office 08/29/24 Patti Nova NP cyclobenzaprine (FLEXERIL) 10 mg tablet Take 1 tablet (10 mg total) by mouth at bedtime. HistoricalProviderMD levothyroxine (SYNTHROID, LEVOTHROID) 137 mcg tablet Take 1 tablet (137 mcg total) by mouth 1 (one)time each day before breakfast. Historical Provider, metoprolol tartrate (LOPRESSOR) 100 mg tablet Take 1 tablet (100 mg total) by mouth 2 (two) times aday. Historical Provider, omeprazole (PriLOSEC) [address] capsule Take 1 capsule (20 mg total) by mouth 1 (one) time each day.09/23/21 Historical Provider, oxyBUTYnin XL (DITROPAN-XL) 10 mg 24 hr tablet Take 1 tablet (10 mg total) by mouth 1 (one) time each day. 02/22/20 Historical ProviderMD polyethylene glycol (Golytely) 236-22.74-6.74 -5.86 gram solution Take 4L by mouth once for one dose. May substitue any PEG. Starting at 6PM the night before your procedure drink 1 8oz glasses at your own pace until you complete half of the gallon. Finish 2nd half of the gallon 5 hours before your procedure. 08/29/24 Patti Nova NP tadalafiL (CIALIS) 5 mg tablet Take 1 tablet (5 mg total) by mouth 1 (one) time each day. Historical Provider, I have personally reviewed all the patient's medications with them prior to anesthesia. Current In-hospital Medications Social History Tobacco Use Smoking status: Never Smokeless tobacco: Never Substance Use Topics Alcohol use: Yes Drug use: No Types: Marijuana/Cannabis Is the patient a current smoker (e.g. cigarette, cigar, pip, e-cigarette, or mariajuana)? Yes [] No[] Patient previously instructed to abstain from smoking on the day of procedure? Yes [] No[] Patient smoked on the day of procedure? Yes [] No[] ASPIRE smoking VBR: [] Not interested in quitting [] Interested in quitting- referred to treatment [] Interested in quitting - treatment provided Visit Vitals Smoking Status Never LABS: No results found for: WBC , HGB , HCT , MCV , PLT No results found for: GLUCOSE , CALCIUM , NA , K , CO2 , CL , BUN , CREATININE No results found for: INR , PROTIME No results found for: PTT Relevant Problems No relevant active problems Clinical information reviewed: Allergies Anesthesia Plan ASA 2 Anesthesia Plan: MAC Induction method: intravenous Anesthetic plan and risks discussed with patient. Anesthesia Plan discussed with LICENSED CLUB MANAGER. Anesthesia Evaluation No history of anesthetic complications Airway Mallampati: II Thyromental distance: > 3 finger breadths Neck ROM: fullnot intubatedno noted risk Dental - normal exam Pulmonary - negative ROS breath sounds clear to auscultation Cardiovascular (+) hypertension Rhythm: regular Rate: normal Neuro/Psych - negative ROS GI/Hepatic/Renal (+) GERD, liver disease Endo/Other (+) hypothyroidism Comments: Bladder CA Abdominal PONV RISK SCORE: 1 There were no vitals filed for this visit. SpO2 Readings from Last 1 Encounters: No data found for SpO2 No results found for: WBC , RBC , HGB , HCT , PLT , MCV Allergies Allergen Reactions Penicillins Anaphylaxis Rash and itch of mouth. Furosemide Hives Lasix Iodinated Contrast Media Lisinopril Cough Latex Rash No reaction documented. STOP BANG: No data recorded NPO Status: Time of Last Liquid: 1030 documented in this encounter Plan of Treatment Not on file documented as of this encounter Visit Diagnoses Not on filedocumented in this encounter Administered Medications Inactive Administered Medications - up to 3 most recent administrations Medication Order MAR Action Action Date Dose Rate Site labetalol (NORMODYNE) injection intravenous, As needed, Starting on Gloria 10/05/24 at 1406, Anesthesia Intraprocedure Given 10/05/2024 2:06 PM EST 10 mg lactated Ringer's infusion intravenous, Continuous PRN, Starting on Gloria 10/05/24 at 1351, Anesthesia Intraprocedure New Bag 10/05/2024 1:51 PM EST lidocaine (PF) (XYLOCAINE-MPF) 2 % injection injection, As needed, Starting on Gloria 10/05/24 at 1353, Anesthesia Intraprocedure Given 10/05/2024 1:53 PM EST 50 mg propofoL (DIPRIVAN) injection intravenous, As needed, Starting on Gloria 10/05/24 at 1353, Anesthesia Intraprocedure Given 10/05/2024 2:09 PM EST 20 mg Given 10/05/2024 2:05 PM EST 20 mg Given 10/05/2024 2:01 PM EST 20 mg documented in this encounter Care Teams Barrel Bung Remover And Dumper Relationship Specialty Start Date End Date Eugenia Sparrow MD [address] [place] [address] PCP - General Internal Medicine 08/22/24 documented as of this encounter
--- OUTSIDE RECORDS SUMMARY | 2024-10-12 17:49 | XMS_ITS | Clinical Summary ---
Author Organization [facility] Address [address] [place] [address] Care Team Providers Care Cellophaner Name Role Phone Tamara Short MD Primary [...] age to complete this topic Care Teams Cellophaner Relationship Specialty Start Date End Date Tamara Short MD [address] [place] [address] PCP - General Internal Medicine 11/25/17
--- OUTSIDE RECORDS SUMMARY | 2024-10-12 17:49 | XMS_ITS | Encounter Summary ---
Author Organization [facility] Address [address] [place] [address] Care Team Providers Care Applications Manager Name Role Phone Eugenia Sparrow MD Primary Care Provider [phone] Reason for Referral * Hospital - Outpatient (Routine) - Closed Specialty Diagnoses / Procedures Referred By Itzel weaver Referred To Contact Gastroenterology Diagnoses Hx of colonic polyps Procedures COLONOSCOPY Anesthesia - MAC; [facility] ENDOSCOPY Pedro Luis Le MD [address] [address] Phone: tel: fax: [facility] Endoscopy [address] [place] [phone] Phone: tel: Referral ID Status Reason Start Date Expiration Date Visits Re quested Visits Authorized [id number] Closed 08/29/2024 08/29/2025 1 1 Reason for Visit * Hospital - Outpatient (Routine) - Closed Specialty Diagnoses / Procedures Referred By Itzel weaver Referred To Contact Gastroenterology Diagnoses Hx of colonic polyps Procedures COLONOSCOPY Anesthesia - MAC; [facility] ENDOSCOPY Pedro Luis Le MD [address] [address] Phone: tel: fax: [facility]oscopy [address] [place] [address] Phone: tel: Referral ID Status Reason Start Date Expiration Date Visits Re quested Visits Authorized [id number] Closed 08/29/2024 08/29/2025 1 1 Encounter Details Date Type Department Care Team (Latest Contact Info) Description 10/05/2024 1:05 PM EST - 10/05/2024 11:59 PM EST Hospital Encounter [facility] Endoscopy [address] [place] [address] Pedro Luis Le MD 299 [facility] [address] [place] [address] Nadir Eli CRNA [address] [place] [address] Zachary Macedo MD [address] [facility] [address] [place] [address] Hx of colonic polyps Discharge Disposition: Home or Self Care Social History Tobacco Use Types Packs/Day Years [...] PM EST documented as of this encounter Last Filed Vital Signs Vital Sign Reading Time Taken Comments Blood Pressure 161/123 10/05/2024 2:34 PM EST Pulse 87 10/05/2024 2:34 PM EST Temperature - - Respiratory Rate 19 10/05/2024 2:34 PM EST Oxygen Saturation 94% 10/05/2024 2:34 PM EST Inhaled Oxygen Concentration - - Weight 93 kg (205 lb) 10/05/2024 1:23 PM EST Height 177.8 cm (5' 10 ) 10/05/2024 1:23 PM EST Body Mass Index 29.41 10/05/2024 1:23 PM EST documented in this encounter Discharge Instructions * Attachments The following attachments cannot be sent through Care Everywhere. * Colonoscopy: Post-op (Mauritian) * Colon Polyps (Mauritian) documented in this encounter Medications at Time of Discharge acetaminophen (TYLENOL) 500 mg tablet Take 2 tablets (1,000 mg total) by mouth every 6 (six) hours if needed for mild pain. amLODIPine (NORVASC) 5 mg tablet Take 1 tablet (5 mg total) by mouth 1 (one) time each day. bisacodyL (DULCOLAX) 5 mg EC tablet Take 2 tablets by mouth right before beginning bowel prep. See instructions provided by the office 2 tablet 08/29/2024 cyclobenzaprine (FLEXERIL) 10 mg tablet Take 1 tablet (10 mg total) by mouth at bedtime. levothyroxine (SYNTHROID, LEVOTHROID) 137 mcg tablet Take 1 tablet (137 mcg total) by mouth 1 (one) time each day before breakfast. metoprolol tartrate (LOPRESSOR) 100 mg tablet Take 1 tablet (100 mg total) by mouth 2 (two) times a day. omeprazole (PriLOSEC) [address] capsule Take 1 capsule (20 mg total) by mouth 1 (one) time each day. 09/23/2021 oxyBUTYnin XL (DITROPAN-XL) 10 mg 24 hr tablet Take 1 tablet (10 mg total) by mouth 1 (one) time each day. 02/22/2020 polyethylene glycol (Golytely) 236-22.74-6.74 -5.86 gram solution Take 4L by mouth once for one dose. May substitue any PEG. Starting at 6PM the night before your procedure drink 1 8oz glasses at your own pace until you complete half of the gallon. Finish 2nd half of the gallon 5 hours before your procedure. 4000 mL 08/29/2024 tadalafiL (CIALIS) 5 mg tablet Take 1 tablet (5 mg total) by mouth 1 (one) time each day. documented as of this encounter Discharge Disposition Disposition Code Departure Means Destination Home or Self Care documented in this encounter Progress Notes * Yesenia Dietz RN - 10/05/2024 2:22 PM EST Problem: Cognitive:Periop Procedure - Minor Goal: Knowledge of disease or condition will improve Outcome: Adequate for Discharge Problem: Sensory:Periop Procedure - Minor Goal: Demonstrates/reports adequate pain control Outcome: Adequate for Discharge * Haim Chavarria RN - 10/05/2024 1:59 PM EST Abdominal pressure applied by babatunde jerez. * Sheron Arce RN - 10/05/2024 1:16 PM EST Problem: Cognitive:Periop Procedure - Minor Goal: Knowledge of disease or condition will improve Outcome: Progressing Problem: Sensory:Periop Procedure - Minor Goal: Demonstrates/reports adequate pain control Outcome: Progressing Verbalizes understanding of discharge teaching.Verbalizes understanding of discharge teaching. documented in this encounter H&P Notes * Pedro Luis Le MD - 10/05/2024 2:00 PM EST Pre-Op Diagnosis: Hx polyps Proposed Procedure: Colonoscopy Performing Surgeon/MD/Endoscopist: Pedro Luis Le MD Medical/History: Past Medical History: Diagnosis Date Anxiety 01/23/2009 [...] robotic reimplantation ureteral bilateral, bilateral ureer stentplacement Medications/Allergies: Prior to Admission medications Medication Sig Start [...] (10 mg total) by mouth at bedtime. HistoricalProviMD maria elena levothyroxine (SYNTHROID, LEVOTHROID) 137 mcg tablet Take 1 tablet (137 mcg total) by mouth 1 (one)time each day before breakfast. Historical Provider, metoprolol tartrate (LOPRESSOR) 100 mg tablet Take 1 tablet (100 mg total) by mouth 2 (two) times aday. Historical Provider, omeprazole (PriLOSEC) [address] capsule Take 1 capsule (20 mg total) by mouth 1 (one) time each day.09/23/21 Historical ProviderMD oxyBUTYnin XL (DITROPAN-XL) 10 mg 24 hr tablet Take 1 tablet (10 mg total) by mouth 1 (one) time each day. 02/22/20 Historical Provider, polyethylene glycol (Golytely) 236-22.74-6.74 -5.86 gram solution [...] 1 (one) time each day. Historical Provider, Patient Age:54 y.o. Vitals: There were no vitals filed for this visit. Physical Exam: Mental Status: Clear HEENT: WNL Heart: WNL Lungs: WNL Abdomen: WNL Extremities: WNL Neuro: WNL Labs: Imaging: Diagnosis/Plan: Colonoscopy documented in this encounter Procedure Notes * Yesenia Dietz RN - 10/05/2024 2:57 PM EST PATIENT TOLERATED PO INTAKE. DR MACEDO (ANESTHESIOLOGIST) AWARE OF HTN. DR LE SPOKE TO PATIENT ABOUT FINDINGS. DR LE AWARE PT HAVING SOME ABD DISTENTION. PATIENT PASSING FLATUS. PATIENT MEETS DISCHARGE CRITERIA. documented in this encounter Plan of Treatment Not on file documented as of this encounter Procedures Procedure Name Priority Date/Time Associated Diagnosis Comments COLONOSCOPY Routine 10/05/2024 2:13 PM EST Hx of colonic polyps TISSUE EXAM Routine 10/05/2024 2:06 PM EST Hx of colonic polyps documented in this encounter Results * COLONOSCOPY Anesthesia - MAC; [facility] ENDOSCOPY (10/05/2024 2:13 PM EST) Anatomical Region Laterality Modality Endoscopy 10/05/2024 1:50 PM EST Impressions 10/05/2024 2:15 PM EST - One 6 mm polyp in the rectum, removed with a cold ? snare. Resected and retrieved. ? - One 3 mm polyp in the transverse colon, removed with ? a jumbo cold forceps. Resected and retrieved. ? - The examination was otherwise normal. Recommendation: ?- Patient has a contact number available for ? emergencies. The signs and symptoms of potential ? delayed complications were discussed with the patient. ? Return to normal activities tomorrow. Written ? discharge instructions were provided to the patient. ? - Resume previous diet. ? - Continue present medications. ? - Await pathology results. ? - Repeat colonoscopy in 5-10 years for surveillance. Narrative 10/05/2024 2:15 PM EST [facility] GI Patient Name: Boone Gonzales Procedure Date: 10/05/2024 1:50 PM Date of : 1970 Age: 54 Room: ROOM 15 Gender: Male Note Status: Finalized Attending MD: Pedro Luis Le MD, Procedure Date No Time: 10/05/2024 Procedure: ? Colonoscopy Indications: ? High risk colon cancer surveillance: Personal history ? of colonic polyps Providers: ? Pedro Luis Le MD Referring MD: ?Pedro Luis Le MD Medicines: ? Monitored Anesthesia Care Complications: ? No immediate complications. Estimated Blood Loss: ? Estimated blood loss was minimal. Procedure: ? After I obtained informed consent, the scope was ? passed under direct vision. Throughout the procedure, ? the patient's blood pressure, pulse, and oxygen ? saturations were monitored continuously. The ? Colonoscope was introduced through the anus and ? advanced to the cecum, identified by appendiceal ? orifice and ileocecal valve. The colonoscopy was ? performed without difficulty. The patient tolerated ? the procedure well. The quality of the bowel ? preparation was adequate. Findings: ?A 6 mm polyp was found in the rectum. The polyp was ? sessile. The polyp was removed with a cold snare. ? Resection and retrieval were complete. ? A 3 mm polyp was found in the transverse colon. The ? polyp was sessile. The polyp was removed with a jumbo ? cold forceps. Resection and retrieval were complete. ? The exam was otherwise without abnormality. Procedure Code(s): ? --- Professional --- ? 60332, Colonoscopy, flexible; with removal of ? tumor(s), polyp(s), or other lesion(s) by snare ? technique ? 66041, 59, Colonoscopy, flexible; with biopsy, single ? or multiple Diagnosis Code(s): ? --- Professional --- ? Z86.010, Personal history of colonic polyps ? D12.8, Benign neoplasm of rectum ? D12.3, Benign neoplasm of transverse colon (hepatic ? flexure or splenic flexure) CPT copyright 202 [employer]. All rights reserved. The codes documented in this report are preliminary and upon lead scientist review may be revised to meet current compliance requirements. MD Pedro Luis Kasper MD 10/05/2024 2:15:09 PM This report has been signed electronically.Pedro Luis Le MD Number of Addenda: 0 Note Initiated On: 10/05/2024 1:50 PM Scope In: Scope Out: ? Endoscopy Department at [facility] - [address] [place] [address], ? [place] [address] Procedure Note Pedro Luis Le MD - 10/05/2024 [facility] GI Patient Name: Boone Gonzales Procedure Date: 10/05/2024 1:50 PM Date of : 1970 Age: 54 Room: ROOM 15 Gender: Male Note Status: Finalized Attending MD: Pedro Luis Le MD, Procedure Date No Time: 10/05/2024 Procedure: Colonoscopy Indications: High risk colon cancer surveillance: Personalhistory of colonic polyps Providers: Pedro Luis Le MD Referring MD: Pedro Luis Le MD Medicines: Monitored Anesthesia Care Complications: No immediate complications. Estimated Blood Loss: Estimated blood loss was minimal. Procedure: After I obtained informed consent, the scope was passed under direct vision. Throughout theprocedure, the patient's blood pressure, pulse, and oxygen saturations were monitored continuously. The Colonoscope was introduced through the anus and advanced to the cecum, identified by appendiceal orifice and ileocecal valve. The colonoscopy was performed without difficulty. The patient tolerated the procedure well. The quality of the bowel preparation was adequate. Findings: A 6 mm polyp was found in the rectum. The polyp was sessile. The polyp was removed with a cold snare. Resection and retrieval were complete. A 3 mm polyp was found in the transverse colon. The polyp was sessile. The polyp was removed with ajumbo cold forceps. Resection and retrieval werecomplete. The exam was otherwise without abnormality. Procedure Code(s): --- Professional --- 31880, Colonoscopy, flexible; with removal of tumor(s), polyp(s), or other lesion(s) by snare technique 40244, 59, Colonoscopy, flexible; with biopsy,single or multiple Diagnosis Code(s): --- Professional --- Z86.010, Personal history of colonic polyps D12.8, Benign neoplasm of rectum D12.3, Benign neoplasm of transverse colon (hepatic flexure or splenic flexure) CPT copyright 2020 [employer]. All rights reserved. The codes documented in this report are preliminary and upon lead scientist reviewmay be revised to meet current compliance requirements. MD Pedro Luis Kasper MD 10/05/2024 2:15:09 PM This report has been signed electronically.Pedro Luis Le MD Number of Addenda: 0 Note Initiated On: 10/05/2024 1:50 PM Scope In: Scope Out: Endoscopy Department at [facility] - [address] [place] [phone] IMPRESSION: - One 6 mm polyp in the rectum, removed with a cold snare. Resected and retrieved. - One 3 mm polyp in the transverse colon, removedwith a jumbo cold forceps. Resected and retrieved. - The examination was otherwise normal. Recommendation: - Patient has a contact number available for emergencies. The signs and symptoms of potential delayed complications were discussed with thepatient. Return to normal activities tomorrow. Written discharge instructions were provided to thepatient. - Resume previous diet. - Continue present medications. - Await pathology results. - Repeat colonoscopy in 5-10 years [facility]. Pedro Luis Le MD GI~PROCEDURE ORDERABLES Final R esult * Tissue exam (10/05/2024 2:06 PM EST) Final Diagnosis A. Large Intestine, Transverse Colon, polyp x1: - Tubular adenoma. B. Large Intestine, Rectum, polyp: - Polypoid rectal mucosa with prominent reactive lymphoid aggregates. - Negative for dysplasia. 10/06/2024 10:36 AM EST [facility] Gross Description A. Large Intestine, Transverse Colon, polyp x1: Labeled trans colon polyp x 1 . Received in formalin is a 0.3 cm irregular lopez mucosal tissue fragment which is wrapped in paper and submitted in toto in one cassette, one piece, multiple levels on one slide. B. Large Intestine, Rectum, polyp: Labeled LI rectum . Received in formalin is a 0.3 cm irregular lopez mucosal tissue fragment which is wrapped in paper and submitted in toto in one cassette, one piece, multiple levels on one slide. EVA 10/06/2024 10:36 AM [facility] Disclaimer Unless otherwise specified, all tissue is 10% NB formalin fixed and paraffin embedded. 10/06/2024 10:36 AM [facility] Tissue Transverse colon structure / Unknown 10/05/2024 2:06 PM EST 10/05/2024 3:20 PM EST Tissue specimen (specimen) Rectum structure / Unknown 10/05/2024 2:10 PM EST 10/05/2024 3:20 PM EST Pedro Luis Le MD LAB PATHOLOGY ORDERABLES Final Result [facility] [address] [place] [address], documented in this encounter Visit Diagnoses Diagnosis Hx of colonic polyps Personal history of colonic polyps documented in this encounter Orders Discharge Count Last Ordered Date First Orde red Date DISCHARGE PATIENT 1 10/05/2024 documented in this encounter Care Teams Applications Manager Relationship Specialty Start Date End Date Eugenia Sparrow MD [address] [place] [address] PCP - General Internal Medicine 08/22/24 documented as of this encounter
--- OUTSIDE RECORDS SUMMARY | 2024-10-12 17:50 | XMS_ITS | Clinical Summary ---
Author Organization [facility] Address [address] [place] [address] Phone Care Team Providers Care Food Production Manager Name Role Phone Eugenia Sparrow MD Primary Care Provider [phone] Allergies Active Allergy Reactions Criticality Noted Date Comments Furosemide Hives Medium 08/22/2024 Lasix Iodinated Contrast Media 11/25/2017 Latex Rash Low 06/20/2020 No reaction documented. Lisinopril Cough 06/20/2020 Penicillins Anaphylaxis High 10/02/2009 [...] Encounters Date Type Department Care Team Description 10/10/2024 Telephone Gastroenterology - 299 [facility] 299 [facility] [address] [place] [phone] Martine Quintanilla MA Results 10/05/2024 1:50 PM EST Anesthesia Event [facility] Endoscopy [address] [place] [phone] Zachary Harry MD 10/05/2024 1:05 PM EST - 10/05/2024 11:59 PM EST Hospital Encounter [facility] Endoscopy [address] [place] [phone] Pedro Luis Tsai MD Hayes, Brett L, CRNA Gomes, Sheldon B, MD Hx of colonic polyps Discharge Disposition: Home or Self Care 08/22/2024 Telephone Gastroenterology - [place] 175 [facility] 175 [facility] [address] [place] [phone] Javed Romeo MD Special Procedure from Last [...] No Known Problems Daughter Diabetes Father CKD/dialysis Colon cancer Father's Brother No Known Problems Mother arthritis No Known Problems Other No Known Problems Sister 1 No Known Problems Sister 2 No Known Problems Son No Known Problems Uncle 1 No Known Problems Uncle 2 Autoimmune disease Neg Hx Breast cancer Neg Hx Coronary artery disease Neg Hx Heart attack Neg Hx Heart failure Neg Hx Hyperlipidemia Neg Hx Hypertension Neg Hx Mental illness Neg Hx Prostate cancer Neg Hx Sleep apnea Neg Hx Thyroid disease Neg Hx Relation Name Status Comments Brother MVA Daughter Alive Father DM, htn Father's Brother Mother Alive breast cancer Other Sister 1 [...] Orientation Straight 10/05/2024 12 :59 PM EST Obstetrics History Last Filed Vital Signs Vital Sign Reading [...] Mass Index 29.41 10/05/2024 1:23 PM EST Plan of Treatment Health Maintenance Due Date Last Done Comments Hepatitis A Vaccines (1 of 2 - Risk 2-dose series) 01/23/1987 Pneumococcal Vaccine: 50+ Years (1 of 2 - PCV) 01/23/1987 Pneumococcal Vaccine: Pediatrics (0 to 5 Years) and At-Risk Patients (6 to 64 Years) (1 of 2 - PCV) 01/23/1987 Zoster Vaccines (1 of 2) 01/23/1987 Hepatitis B Vaccines (2 of 3 - 19+ 3-dose series) 04/03/2019 03/06/2019 COVID-19 Vaccine (3 - Modern a risk series) 09/28/2020 08/31/2020, 08/03/2020 Cholesterol Screening (Lipid Panel) 07/11/2022 Depression Screening 07/11/2022 HIV Screening 07/11/2022 Hepatitis C Screening 07/11/2022 Social Influencers of Health Screening 07/11/2022 Hypertension/CHF/CAD Annual BMP Blood Test 07/16/2022 10/31/2020, 10/30/2020, 10/23/2020 Influenza Vaccine (#1) 2024 0, 08/14/2009, 04/29/2009 Colorectal Cancer Screening: Colonoscopy 10/05/2029 10/05/2024 DTaP,Tdap,and Td Vaccines (3 - Td or Tdap) 12/08/2031 12/07/2021, 09/12/2012 HIB Vaccines Aged Out No longer eligi [...] on patient's age to complete this topic Procedures Procedure Name Priority Date/Time Associated Diagnosis Comments COLONOSCOPY Routine 10/05/2024 2:13 PM EST Hx of colonic polyps TISSUE EXAM Routine 10/05/2024 2:06 PM EST Hx of colonic polyps from Last 3 Months Results * COLONOSCOPY Anesthesia - MAC; [facility] ENDOSCOPY (10/05/2024 2:13 PM EST) Anatomical [...] for surveillance. Narrative 10/05/2024 2:15 PM EST [facility] GI Patient Name: Boone Gonzales Procedure Date: 10/05/2024 1:50 PM Date of : 1970 Age: 54 Room: ROOM 15 Gender: Male Note Status: Finalized Attending MD: Pedro Luis Tsai MD, Procedure Date No Time: 10/05/2024 Procedure: ? Colonoscopy Indications: ? High risk colon cancer surveillance: Personal history ? of colonic polyps Providers: ? Pedro Luis Tsai MD Referring MD: ?Pedro Luis Tsai MD Medicines: ? Monitored Anesthesia Care Complications: [...] Procedure Code(s): ? --- Professional --- ? 89990, Colonoscopy, flexible; with removal of ? tumor(s), polyp(s), or other lesion(s) by snare ? technique ? 78323, 59, Colonoscopy, flexible; with biopsy, single ? or multiple Diagnosis Code(s): ? --- Professional --- ? Z86.010, Personal history of colonic polyps ? D12.8, Benign neoplasm of rectum ? D12.3, Benign neoplasm of transverse colon (hepatic ? flexure or splenic flexure) CPT copyright 2020 [employer]. All rights reserved. The codes documented in this report are preliminary and upon stripping shovel oiler review may be revised to meet current compliance requirements. MD Pedro Luis Kasper MD 10/05/2024 2:15:09 PM This report has been signed electronically.Pedro Luis Tsai MD Number of Addenda: 0 Note Initiated On: 10/05/2024 1:50 PM Scope In: Scope Out: ? Endoscopy Department at [facility] - [address] [place] [address], ? [place] [address] Procedure Note Pedro Luis Tsai MD - 10/05/2024 [facility] GI Patient Name: Boone Gonzales Procedure Date: 10/05/2024 1:50 PM Date of : 1970 Age: 54 Room: ROOM 15 Gender: Male Note Status: Finalized Attending MD: Pedro Luis Tsai MD, Procedure Date No Time: 10/05/2024 Procedure: Colonoscopy Indications: High risk colon cancer surveillance: Personalhistory of colonic polyps Providers: Pedro Luis Tsai MD Referring MD: Pedro Luis Tsai MD Medicines: Monitored Anesthesia Care Complications: No [...] without abnormality. Procedure Code(s): --- Professional --- 72370, Colonoscopy, flexible; with removal of tumor(s), polyp(s), or other lesion(s) by snare technique 36942, 59, Colonoscopy, flexible; with biopsy,single or multiple Diagnosis Code(s): --- Professional --- Z86.010, Personal history of colonic polyps D12.8, Benign neoplasm of rectum D12.3, Benign neoplasm of transverse colon (hepatic flexure or splenic flexure) CPT copyright 2020 [employer]. All rights reserved. The codes documented in this report are preliminary and upon stripping shovel oiler reviewmay be revised to meet current compliance requirements. MD Pedro Luis Kasper MD 10/05/2024 2:15:09 PM This report has been signed electronically.Pedro Luis Tsai MD Number of Addenda: 0 Note Initiated On: 10/05/2024 1:50 PM Scope In: Scope Out: Endoscopy Department at [facility] - [address] [place] [phone] IMPRESSION: - One 6 mm polyp in [...] results. - Repeat colonoscopy in 5-10 years forsurveillance. Pedro Luis Tsai MD GI~PROCEDURE ORDERABLES Final R esult * Tissue exam (10/05/2024 2:06 PM EST) Final Diagnosis A. Large Intestine, Transverse Colon, polyp x1: - Tubular adenoma. B. Large Intestine, Rectum, polyp: - Polypoid rectal mucosa with prominent reactive lymphoid aggregates. - Negative for dysplasia. 10/06/2024 10:36 AM [facility] Gross Description A. Large Intestine, [...] on one slide. EVA 10/06/2024 10:36 AM [facility] Disclaimer Unless otherwise specified, all tissue is 10% NB formalin fixed and paraffin embedded. 10/06/2024 10:36 AM [facility] Tissue Transverse colon structure / Unknown 10/05/2024 2:06 PM EST 10/05/2024 3:20 PM EST Tissue specimen (specimen) Rectum structure / Unknown 10/05/2024 2:10 PM EST 10/05/2024 3:20 PM EST us Pedro Luis Tsai MD LAB PATHOLOGY ORDERABLES Final Result [facility] [address] [place] [address], from Last 3 Months Insurance [facility] [place] [address] Care Teams Food Production Manager Relationship Specialty Start Date End Date Eugenia Sparrow MD [address] [place] [phone] PCP - General Internal Medicine 08/22/24
== END 2024-10-12 15:33 | disposition home or self-care (01) ==
LOC: HO.HUSH 14:01
PROVIDERS: PCP Internal Medicine; Visit Provider Urology
DX: N40.1 Benign prostatic hyperplasia with lower urinary tract symptoms (principal); Z85.51 Personal history of malignant neoplasm of bladder
CPT/HCPCS: 52000; 99213; G2211

== ENCOUNTER 2024-10-24 09:26 | Outpatient (AMB) | payer OTHER, SELFPAY ==
--- NOTE | 2024-10-24 09:34 | HO.NEPHOV ---
Vital Signs 10/24/24 09:36 Height 5 ft 10 in Weight 203 lb 6 oz BMI 29.2 BP 160/100 H Blood Pressure Location Lt brachial Position Sitting Pulse 71 Pulse Source Pulse Oximeter Pulse Oximetry (%) 95 Oxygen Delivery Method Room Air Intake Visit Reasons: 1mn follow-up w/labs-Conf Postal Mail Carrier Required: No Accompanied by: Self / Same As Patient Allergies Penicillins Allergy (Severe, Verified 10/24/24 09:35) Anaphylaxis furosemide [From Lasix] Allergy (Intermediate, Verified 10/24/24 09:35) hive HPI Comments Details: Boone is a 54-year-old gentleman for evaluation of CKD on a back drop of high BMI and hypertension. He has a history of bladder tumor resection (2020). He is not a diabetic but has been a pre diabetic. His family history is significant for breast cancer in his mother and myocardial infarction along with kidney disease in his father, needing HD. His sister also has H/O ? CKD and a daughter has renal stones. He does not smoke and reports only limited alcohol consumption, primarily wine. Has H/O elevated liver enzymes and been followed up by PCP. He does not have any edema, new bone or back pain. He has H/O joint pains and takes NSAID's when he has severe pain. He denies any H/O vascular disease, carotid disease, PAD, LORY, CVA, CHF, CAD. He has no H/O hemoptysis, active hematuria, joint swelling, photosensitivity or skin rashes. He has some back pain and had taken some NSAID's. [facility] Medical History Rheumatoid arthritis Rash Hypothyroid HTN (hypertension) Nocturnal hypoxemia AMANDEEP (obstructive sleep apnea) Obesity (BMI 30-39.9) Encounter to establish care Surgical History H/O transurethral resection of bladder tumor (TURBT) History of colonoscopy Family History Mother Breast cancer Father Heart attack CKD (chronic kidney disease) requiring chronic dialysis Brother No problems noted. Sister No problems noted. Sister No problems noted. Daughter No problems noted. Daughter No problems noted. Social History Housing: House Alcohol intake: current Alcohol intake frequency: a few times a month Alcohol type: wine Patient Tobacco Use Status: Never used Tobacco e-Cigarette/Vaping Use: Never Used Second Hand Smoke Exposure: No service: No Current occupational status: employed Current occupational exposures/hazards: No Cognitive needs: No Hearing needs: No Vision needs: No Review of Systems Const All systems reviewed & are unremarkable except as noted in HPI and below Physical Exam Vital Signs: Last Vital Signs Pulse 71 10/24/24 09:36 BP 160/100 H 10/24/24 09:36 Pulse Ox 95 10/24/24 09:36 Oxygen Delivery Method Room Air 10/24/24 09:36 BMI result Body Mass Index 29.2 Const General: comfortable and no acute distress Orientation/consciousness: patient oriented x3 HEENT Head: Yes normocephalic Mouth: Normal oral and palatal mucosa present Eyes EOM: EOMs intact bilaterally Neck Neck: Yes supple Resp Auscultation: clear to auscultation bilaterally Cardio Jugular venous distension: no JVD Rate: regular rate GI Palpation (GI): Soft to palpation Auscultation: normal bowel sounds General: Yes no CVA tenderness Back/Spine/Pelvis Back: no CVA tenderness Skin General skin exam: no rashes or lesions noted Neuro General: patient oriented x3 and moves all extremities Extrem General: Yes no pedal edema Results Reviewed Nephrology Results: Hgb 17.6 g/dl (14.0-18.0) 10/02/24 WBC 7.9 X10*3/uL (4.8-10.8) 10/02/24 Plt Count 277 X10*3/uL (160-400) 10/02/24 Sodium 143 mmol/L (135-145) 09/20/24 Potassium 3.7 mmol/L (3.3-5.1) 09/20/24 Chloride 106 mmol/L (96-108) 09/20/24 Carbon Dioxide 29 mmol/L (22-29) 09/20/24 BUN 14 mg/dL (9-16) 09/20/24 Creatinine 1.15 mg/dL (0.5-1.4) 09/20/24 Calcium 9.3 mg/dL (8.4-10.2) 09/20/24 Urine Protein 100 (2+) mg/dL (Neg-Trace) H 10/02/24 Urine Creatinine 118.42 mg/dL 10/02/24 Protein/Creatinin Ratio 0.47 (<0.2) H 10/02/24 Assessment & Plan Assessment & Plan (1) Proteinuria: Code(s): R80.9 - Proteinuria, unspecified Category: Medical Qualifiers: Proteinuria type: other Qualified Code(s): R80.8 - Other proteinuria (2) Renal cyst: Code(s): N28.1 - Cyst of kidney, acquired Category: Medical (3) Essential hypertension: Code(s): I10 - Essential (primary) hypertension Category: Medical (4) CKD (chronic kidney disease) stage 3, GFR 30-59 ml/min: Code(s): N18.30 - Chronic kidney disease, stage 3 unspecified Category: Medical Qualifiers: Chronic kidney disease stage 3 subtype: stage 3a (GFR 45-59) Qualified Code(s): N18.31 - Chronic kidney disease, stage 3a Won Shook has CKD 3 with hypertension on a back drop of H/O bladder tumor. He is a pre diabetic. Differential diagnosis is broad at this point. I asked him to abstain from NSAID's and maintain good hydration. I reviewed extensive work up including 24 hour urine for protein. I started him on losartan 25 mg at night. I reviewed his USS from last year which I shall repeat for follow up of his renal cysts. He may need a renal biopsy pending evolving data. All questions answered. F/U given in 2 month Orders: Orders Creatinine 6 Weeks N18.31 - Chronic kidney disease, stage 3a Blood Urea Nitrogen 6 Weeks N18.31 - Chronic kidney disease, stage 3a Electrolytes 6 Weeks N18.31 - Chronic kidney disease, stage 3a Protein Creatinine Ratio, Ur 6 Weeks N18.31 - Chronic kidney disease, stage 3a Medications: New losartan 25 mg PO DAILY 90 tabs 3RF Coding Level of Care Code Est Pt Level 4 (28357) Diagnoses Other proteinuria R80.8 Proteinuria type: other Renal cyst N28.1 Essential hypertension I10 Stage 3a chronic kidney disease N18.31 Chronic kidney disease stage 3 subtype: stage 3a (GFR 45-59)
[2024-10-24 09:36] VITALS: BP 160/100; PULSE 71; O2SAT 95; BMI 29.2
--- OUTSIDE RECORDS SUMMARY | 2024-10-24 10:31 | XMS_ITS | Encounter Summary ---
Author Organization [facility] Address [address] [place] [phone] Care Team Providers Care Team Manager Name Role Phone Eugenia Sparrow MD Primary Care Provider [phone] Reason for Visit * Reason Onset Date Comments Results 10/10/2024 Encounter Details Date Type Department Care Team (Late st Contact Info) Description 10/10/2024 Telephone Gastroenterology - [address] [place] [address] Martine Quintanilla MA Results Social History [...] you call, please call back * Martine Qiuntanilla MA - 10/10/2024 4:16 PM EDT Lmom to cb (swazi and malay) Per Dr. Tsai He did undergo a colonoscopy on 10/05 and had a smalltubular adenoma in the transverse colon. A larger rectal poly was totally benign. Would consider a 5 year recall documented in this encounter Plan of Treatment Not on file documented as of this encounter Visit Diagnoses Not on filedocumented in this encounter Care Teams Team Manager Relationship Specialty Start Date End Date Eugenia Sparrow MD [address] [place] [address] PCP - General Internal Medicine 08/22/24 documented as of this encounter
--- OUTSIDE RECORDS SUMMARY | 2024-10-24 10:31 | XMS_ITS | Encounter Summary ---
Author Organization [facility] Address [address] [place] [address] Care Team Providers Care Locker Attendant Name Role Phone Eugenia Sparrow MD Primary Care Provider [phone] Reason for Referral * Hospital - Outpatient (Routine) - Closed Specialty Diagnoses / Procedures Referred By Itzel weaver Referred To Contact Gastroenterology Diagnoses Hx of colonic polyps Procedures COLONOSCOPY Anesthesia - MAC; [facility] ENDOSCOPY Pedro Luis Le MD [address] [address] Phone: tel: fax: [facility] Endoscopy [address] [place] [phone] Phone: tel: Referral ID Status Reason Start Date Expiration Date Visits Re quested Visits Authorized [id number] Closed 08/29/2024 08/29/2025 1 1 Reason for Visit * Hospital - Outpatient (Routine) - Closed Specialty Diagnoses / Procedures Referred By Itzel weaver Referred To Contact Gastroenterology Diagnoses Hx of colonic polyps Procedures COLONOSCOPY Anesthesia - MAC; [facility] ENDOSCOPY Pedro Luis Le MD [address] [address] Phone: tel: fax: [facility] Endoscopy [address] [place] [address] Phone: tel: Referral ID Status Reason Start Date Expiration Date Visits Re quested Visits Authorized [id number] Closed 08/29/2024 08/29/2025 1 1 Encounter Details Date Type Department Care Team (Latest Contact Info) Description 10/05/2024 1:05 PM EST - 10/05/2024 11:59 PM EST Hospital Encounter [facility] Endoscopy [address] [place] [address] Pedro Luis Le MD 299 [facility] [address] [place] [address] Nadir Eli CRNA [address] [place] [address] Zachary Macedo MD 114 [facility] [address] [place] [address] Hx of colonic polyps Discharge Disposition: Home [...] sent through Care Everywhere. * Colonoscopy: Post-op ([place]ican) * Colon Polyps ([place]) documented in this encounter Medications at Time of Discharge amLODIPine (NORVASC) 5 mg tablet Take 1 tablet (5 mg total) by mouth 1 (one) time each day. cyclobenzaprine (FLEXERIL) 10 mg tablet Take 1 [...] mouth 1 (one) time each day. 02/22/2020 acetaminophen (TYLENOL) 500 mg tablet Take 2 tablets (1,000 mg total) by mouth every 6 (six) hours if needed for mild pain. bisacodyL (DULCOLAX) 5 mg EC tablet Take 2 tablets by mouth right before beginning bowel prep. See instructions provided by the office 2 tablet 08/29/2024 polyethylene glycol (Golytely) 236-22.74-6.74 -5.86 gram solution [...] encounter Results * COLONOSCOPY Anesthesia - MAC; [facility] ENDOSCOPY (10/05/2024 2:13 PM EST) Anatomical [...] surveillance. Narrative 10/05/2024 2:15 PM EST [facility] GI Patient Name: Boone Gonzales Procedure [...] Procedure Code(s): ? --- Professional --- ? 24814, Colonoscopy, flexible; with removal of ? tumor(s), polyp(s), or other lesion(s) by snare ? technique ? 81295, 59, Colonoscopy, flexible; with biopsy, single ? or multiple Diagnosis Code(s): ? --- Professional --- ? Z86.010, Personal history of colonic polyps ? D12.8, Benign neoplasm of rectum ? D12.3, Benign neoplasm of transverse colon (hepatic ? flexure or splenic flexure) CPT copyright 202 [employer]. All rights reserved. The codes documented in this report are preliminary and upon oil program compliance specialist review may be revised to meet current compliance requirements. MD Pedro Luis Kasper MD 10/05/2024 2:15:09 PM This report has been signed electronically.Pedro Luis Le MD Number of Addenda: 0 Note Initiated On: 10/05/2024 1:50 PM Scope In: Scope Out: ? Endoscopy Department at [facility] - [address] [place] [address], ? [place] [address] Procedure Note Pedro Luis Le MD - 10/05/2024 [facility] GI Patient Name: Boone Gonzales Procedure [...] without abnormality. Procedure Code(s): --- Professional --- 12994, Colonoscopy, flexible; with removal of tumor(s), polyp(s), or other lesion(s) by snare technique 78821, 59, Colonoscopy, flexible; with biopsy,single or multiple Diagnosis Code(s): --- Professional --- Z86.010, Personal history of colonic polyps D12.8, Benign neoplasm of rectum D12.3, Benign neoplasm of transverse colon (hepatic flexure or splenic flexure) CPT copyright 2020 [employer]. All rights reserved. The codes documented in this report are preliminary and upon oil program compliance specialist reviewmay be revised to meet current compliance requirements. MD Pedro Luis Kasper MD 10/05/2024 2:15:09 PM This report has been signed electronically.Pedro Luis Le MD Number of Addenda: 0 Note Initiated On: 10/05/2024 1:50 PM Scope In: Scope Out: Endoscopy Department at [facility] - [address] [place] [phone] IMPRESSION: - One 6 mm polyp in [...] results. - Repeat colonoscopy in 5-10 years [facility]. Pedro Luis Le MD GI~PROCEDURE ORDERABLES Final R esult * Tissue exam (10/05/2024 2:06 PM EST) Final Diagnosis A. Large Intestine, Transverse Colon, polyp x1: - Tubular adenoma. B. Large Intestine, Rectum, polyp: - Polypoid rectal mucosa with prominent reactive lymphoid aggregates. - Negative for dysplasia. 10/06/2024 10:36 AM EST [facility] LAB Gross Description A. Large [...] on one slide. EVA 10/06/2024 10:36 AM [facility] LAB Disclaimer Unless otherwise specified, all tissue is 10% NB formalin fixed and paraffin embedded. 10/06/2024 10:36 AM [facility] Tissue Transverse colon structure / Unknown 10/05/2024 2:06 PM EST 10/05/2024 3:20 PM EST Tissue specimen (specimen) Rectum structure / Unknown 10/05/2024 2:10 PM EST 10/05/2024 3:20 PM EST Pedro Luis Le MD LAB PATHOLOGY ORDERABLES Final Result [facility] [address] [place] [address], documented in this encounter Visit Diagnoses Diagnosis Hx of colonic polyps Personal history of colonic polyps documented in this encounter Orders Discharge Count Last Ordered Date First Orde red Date DISCHARGE PATIENT 1 10/05/2024 documented in this encounter Care Teams Locker Attendant Relationship Specialty Start Date End Date Eugenia Sparrow MD [address] [place] [address] PCP - General Internal Medicine 08/22/24 documented as of this encounter
--- OUTSIDE RECORDS SUMMARY | 2024-10-24 10:31 | XMS_ITS | Encounter Summary ---
Author Organization [facility] Address [address] [place] [address] Care Team Providers Care Road Patcher Name Role Phone Eugenia Sparrow MD Primary Care Provider [phone] Encounter Details Date Type Department Care Team (Late st Contact Info) Description 10/05/2024 1:50 PM EST Anesthesia Event [facility] Endoscopy [address] [place] [phone] Zachary Harry MD [address] [place] [address] [address] [place] [address] Anesthesia Record Procedure Summary Procedure Name Responsible [...] Procedure Summary Date: 10/05/24 Room / Location: [facility] Endoscopy Anesthesia Start: 1350 Anesthesia Stop: [...] discussed with patient. Anesthesia Plan discussed with SALESPERSON [employer]. Anesthesia Evaluation No history of anesthetic complications [...] mg documented in this encounter Care Teams Road Patcher Relationship Specialty Start Date End Date Eugenia Sparrow MD [address] [place] [address] PCP - General Internal Medicine 08/22/24 documented as of this encounter
--- OUTSIDE RECORDS SUMMARY | 2024-10-24 10:31 | XMS_ITS | Clinical Summary ---
Author Organization [facility] Address [address] [place] [address] Care Team Providers Care Bench Assembly Inspector Name Role Phone Tamara Short MD Primary [...] age to complete this topic Care Teams Bench Assembly Inspector Relationship Specialty Start Date End Date Tamara Short MD [address] [place] [address] PCP - General Internal Medicine 11/25/17
--- OUTSIDE RECORDS SUMMARY | 2024-10-24 10:32 | XMS_ITS | Clinical Summary ---
Author Organization [facility] Address [address] [place] [address] Phone Care Team Providers Care Milk Processing Worker Name Role Phone Eugenia Sparrow MD Primary Care Provider [phone] Allergies Active Allergy Reactions Criticality Noted Date [...] Team Description 10/10/2024 Telephone Gastroenterology - 299 [facility] 299 [facility] [address] [place] [phone] Martine Quintanilla MA Results 10/05/2024 1:50 PM EST Anesthesia Event [facility] Endoscopy [address] [place] [phone] Zachary Harry MD 10/05/2024 1:05 PM EST - 10/05/2024 11:59 PM EST Hospital Encounter [facility] Endoscopy [address] [place] [phone] Pedro Luis Tsai MD Hayes, Brett L, CRNA Gomes, Sheldon B, MD Hx of colonic polyps Discharge Disposition: Home or Self Care 08/22/2024 Telephone Gastroenterology - [place] 175 [facility] 175 [facility] [address] [place] [phone] Javed Romeo MD Special Procedure from Last [...] Results * COLONOSCOPY Anesthesia - MAC; [facility] ENDOSCOPY (10/05/2024 2:13 PM EST) Anatomical [...] for surveillance. Narrative 10/05/2024 2:15 PM EST [facility] GI Patient Name: Boone Gonzales Procedure [...] Procedure Code(s): ? --- Professional --- ? 99016, Colonoscopy, flexible; with removal of ? tumor(s), polyp(s), or other lesion(s) by snare ? technique ? 96187, 59, Colonoscopy, flexible; with biopsy, single ? or multiple Diagnosis Code(s): ? --- Professional --- ? Z86.010, Personal history of colonic polyps ? D12.8, Benign neoplasm of rectum ? D12.3, Benign neoplasm of transverse colon (hepatic ? flexure or splenic flexure) CPT copyright 2020 [employer]. All rights reserved. The codes documented in this report are preliminary and upon tree worker review may be revised to meet current compliance requirements. MD Pedro Luis Kasper MD 10/05/2024 2:15:09 PM This report has been signed electronically.Pedro Luis Tsai MD Number of Addenda: 0 Note Initiated On: 10/05/2024 1:50 PM Scope In: Scope Out: ? Endoscopy Department at [facility] - [address] [place] [address], ? [place] [address] Procedure Note Pedro Luis Tsai MD - 10/05/2024 [facility] GI Patient Name: Boone Gonzales Procedure [...] without abnormality. Procedure Code(s): --- Professional --- 17189, Colonoscopy, flexible; with removal of tumor(s), polyp(s), or other lesion(s) by snare technique 50476, 59, Colonoscopy, flexible; with biopsy,single or multiple Diagnosis Code(s): --- Professional --- Z86.010, Personal history of colonic polyps D12.8, Benign neoplasm of rectum D12.3, Benign neoplasm of transverse colon (hepatic flexure or splenic flexure) CPT copyright 2020 [employer]. All rights reserved. The codes documented in this report are preliminary and upon tree worker reviewmay be revised to meet current compliance requirements. MD Pedro Luis Kasper MD 10/05/2024 2:15:09 PM This report has been signed electronically.Pedro Luis Tsai MD Number of Addenda: 0 Note Initiated On: 10/05/2024 1:50 PM Scope In: Scope Out: Endoscopy Department at [facility] - [address] [place] [phone] IMPRESSION: - One 6 mm polyp in [...] MD LAB PATHOLOGY ORDERABLES Final Result [facility] [address] [place] [address], from Last 3 Months Insurance [facility] PL[facility] Care Teams Milk Processing Worker Relationship Specialty Start Date End Date Eugenia Sparrow MD [address] [place] [phone] PCP - General Internal Medicine 08/22/24
== END 2024-10-24 10:10 | disposition home or self-care (01) ==
LOC: HO.HKAS 09:27
PROVIDERS: PCP Internal Medicine; Visit Provider Internal Medicine Nephrology
DX: R80.8 Other proteinuria (principal); N28.1 Cyst of kidney, acquired; I10 Essential (primary) hypertension; N18.31 Chronic kidney disease, stage 3a
CPT/HCPCS: 99214

== ENCOUNTER → 2024-10-24 09:26 | Outpatient (BNVA) | payer OTHER, SELFPAY | PROVIDERS: PCP Internal Medicine; Visit Provider Internal Medicine Nephrology | DX: I12.9 Hypertensive chronic kidney disease with stage 1 through stage 4 chronic kidney disease, or unspecified chronic kidney disease (principal); N18.31 Chronic kidney disease, stage 3a; R80.8 Other proteinuria; N28.1 Cyst of kidney, acquired | CPT/HCPCS: 99212 ==

== ENCOUNTER 2024-10-30 13:30 | Emergency (ER) | payer OTHER, SELFPAY ==
--- NOTE | ~2024-10-30 | XR_ITS ---
EXAMINATION: XR LUMBOSACRAL SPINE CLINICAL INFORMATION: low back pain COMPARISON: None available. TECHNIQUE: Three views of the lumbosacral spine. FINDINGS: There is a minimal levoconvex scoliosis. There is a normal lordosis. There is a trace degenerative retrolisthesis of L4 on L5. Alignment is otherwise normal. No fracture, compression deformity, or suspicious bone lesion. Moderate disc degeneration L3-4, with otherwise mild disc degeneration. Facets are normally aligned with mild diffuse facet degenerative arthropathy, most significant at L4-S1. Sacrum appears intact. SI joints appear normal. Mild to moderate vascular calcification in the soft tissues. XR/XR lumbar spine 2-3V IMPRESSION: 1. No acute findings of the lumbar spine. 2. Mild to moderate spondylosis. Electronically signed by: Noé Yun MD 10/30/2024 02:14 PM EDT
[2024-10-30 13:46] VITALS: BP 148/90; PULSE 68; RESP 18; TEMP 36.3; O2SAT 95; BMI 29.1
--- NOTE | 2024-10-30 13:58 | ED.GENADULT ---
HPI - General Adult General Chief complaint: Back Pain/Injury Stated complaint: Sciatic Pain Time Seen by Provider: 10/30/24 14:43 Related Data Previous Rx's ?Medication ?Instructions ?Recorded acetaminophen 500 mg tablet 1,000 mg (2 x 500 mg) PO Q6H PRN 05/02/22 pain 30 days #240 tabs metoprolol tartrate 100 mg tablet 100 mg PO BID 90 days #180 tabs 05/13/24 tadalafil 5 mg tablet (Cialis) 5 mg PO DAILY 90 days #90 tabs 07/19/24 cholecalciferol (vitamin D3) 25 25 mcg PO DAILY 90 days #90 caps 08/22/24 mcg (1,000 unit) capsule cyclobenzaprine 10 mg tablet 10 mg PO BEDTIME #14 tabs 08/22/24 fluoxetine 10 mg tablet 10 mg PO DAILY 90 days #90 tabs 08/22/24 amlodipine 5 mg tablet 5 mg PO DAILY #90 tabs 08/28/24 levothyroxine 150 mcg tablet 150 mcg PO DAILY 90 days #90 tabs 09/20/24 omeprazole 20 mg capsule,delayed 20 mg PO DAILY #90 caps 10/05/24 release oxybutynin chloride 10 mg 10 mg PO DAILY #90 tabs 10/11/24 tablet,extended release 24 hr losartan 25 mg tablet 25 mg PO DAILY #90 tabs 10/24/24 lidocaine 4 % topical patch 1 patch topical DAILY PRN pain #15 10/30/24 ea naproxen 500 mg tablet 500 mg PO BID PRN pain #14 tabs 10/30/24 prednisone 20 mg tablet 40 mg (2 x 20 mg) PO DAILY 5 days 10/30/24 #10 tabs Allergies Allergy/AdvReac Type Severity Reaction Status Date / Time Penicillins Allergy Severe Anaphylaxis Verified 10/30/24 13:48 furosemide [From Lasix] Allergy Intermediate hive Verified 10/30/24 13:48 [facility] Past Medical History Medical History Rheumatoid arthritis Rash Hypothyroid HTN (hypertension) Nocturnal hypoxemia AMANDEEP (obstructive sleep apnea) Obesity (BMI 30-39.9) Encounter to establish care Surgical History H/O transurethral resection of bladder tumor (TURBT) History of colonoscopy Family History Family History Mother Breast cancer Father Heart attack CKD (chronic kidney disease) requiring chronic dialysis Brother No problems noted. Sister No problems noted. Sister No problems noted. Daughter No problems noted. Daughter No problems noted. Social History Social History Housing: House Alcohol intake: current Alcohol intake frequency: a few times a month Alcohol type: wine Patient Tobacco Use Status: Never used Tobacco e-Cigarette/Vaping Use: Never Used Second Hand Smoke Exposure: No service: No Current occupational status: employed Current occupational exposures/hazards: No Cognitive needs: No Hearing needs: No Vision needs: No Physical Exam ED Vital Signs: Vital Signs - 24 hr 10/30/24 13:46 Temperature 97.3 F Pulse Rate 68 Respiratory Rate 18 Blood Pressure 148/90 H Pulse Oximetry 95 Oxygen Delivery Method Room Air BMI result Body Mass Index 29.1 Course Course Course Narrative: RME: 54-year-old male presents to ED for left lower back pain radiating down lower extremities without any injury. Patient states history of sciatica. Patient has normal gait. X-ray ordered Medical Decision Making Medical Decision Making MDM Narrative: 54 yold male presents to the ED for left sided back pain radiating down left leg for one week. patient denies any recent trauma, urinary / bowel incontinence, nausea, vomiting, genitourinary symptoms, generalized numbness, fever, or chills. Patient denies any IV drug use, any history of the ED compromise diseases, any numbness/paralysis of lower extremities. X-ray shows lumbar radiculopathy and spondylosis. Not suspect a cauda equinus syndrome, epidural abscess, osteomyelitis, stroke, and other life-threatening etiology. Patient informed educated on physical therapy and pain medication. Patient explained worrisome signs informed return to the ED immediately if he has them. Differential Diagnosis Differential Diagnoses: The differential diagnosis associated with the presentation includes (arthritis, fracture, disclocation, ) Admission/Observation Consideration of admission/observation: Escalation of care including admission/observation considered Independent Interpretation I performed an independent interpretation of an: Plain X-Ray Radiology Impression Discussion of test interpretation with radiology: I have reviewed the radiologist's reading. Independent Historian Clinical information obtained from an independent historian. History obtained from or confirmed by: Other (patient) Prescription Management I considered prescription management with: Pain Medication Discharge Plan Discharge Clinical Impression: Lumbar radiculopathy, Spondylosis Patient Disposition: Home, Self-Care Instructions: Lumbar Radiculopathy (ED) Additional Instructions: Recommend follow-up with primary care provider for possible physical therapy referral and MRI if needed if pain is not improved. Return to the ED immediately for worsening back pain, nausea, vomiting, abdominal pain, flank pain, fever, chills, dysuria, hematuria, karan urinary/bowel incontinence, paralysis weakness of lower extremities, genital numbness, or any other concerning symptoms Prescriptions: New naproxen 500 mg tablet 500 mg PO BID PRN (Reason: pain) Qty: 14 0RF prednisone 20 mg tablet 40 mg PO DAILY 5 Days Qty: 10 0RF lidocaine 4 % adhesive patch,medicated 1 patch topical DAILY PRN (Reason: pain) Qty: 15 0RF No Action acetaminophen 500 mg tablet 1,000 mg PO Q6H PRN (Reason: pain) 30 Days Qty: 240 1RF metoprolol tartrate 100 mg tablet 100 mg PO BID 90 Days Qty: 180 0RF tadalafil [Cialis] 5 mg tablet 5 mg PO DAILY 90 Days Qty: 90 4RF Rx Instructions: [facility] Group [facility] [id number] amlodipine 5 mg tablet 5 mg PO DAILY Qty: 90 0RF levothyroxine 150 mcg tablet 150 mcg PO DAILY 90 Days Qty: 90 0RF omeprazole 20 mg capsule,delayed release(DR/EC) 20 mg PO DAILY Qty: 90 0RF oxybutynin chloride 10 mg tablet extended release 24hr 10 mg PO DAILY Qty: 90 0RF lidocaine HCl 2 % jelly in applicator 20 ml intra-urethral ONCE Qty: 10 0RF losartan 25 mg tablet 25 mg PO DAILY Qty: 90 3RF cyclobenzaprine 10 mg tablet 10 mg PO BEDTIME Qty: 14 0RF cholecalciferol (vitamin D3) 25 mcg (1,000 unit) capsule 25 mcg PO DAILY 90 Days Qty: 90 1RF fluoxetine 10 mg tablet 10 mg PO DAILY 90 Days Qty: 90 0RF Referrals: Eugenia Watson MD [Primary Care Provider] - ( lumbar radiculopathy. May need physical therapy referral or MRI if no improvement) Mukund To MD, PhD [Physician] - ( lumbar radiculopathy, spondylosis) Stand Alone Forms: Work/School Release Print Language: Monegasque
[2024-10-30 15:55] VITALS: BP 148/90; PULSE 68; RESP 18; TEMP 36.3; O2SAT 95
--- OUTSIDE RECORDS SUMMARY | 2024-10-30 17:02 | XMS_ITS | Clinical Summary ---
Author Organization [facility] Address [address] [place] [address] Phone Care Team Providers Care Card Runner Name Role Phone Eugenia Sparrow MD Primary Care Provider [phone] Allergies Active Allergy Reactions Criticality Noted Date [...] Team Description 10/10/2024 Telephone Gastroenterology - 299 [facility] 299 [facility] [address] [place] [phone] Martine Quintanilla MA Results 10/05/2024 1:50 PM EST Anesthesia Event [facility] Endoscopy [address] [place] [phone] Zachary Harry MD 10/05/2024 1:05 PM EST - 10/05/2024 11:59 PM EST Hospital Encounter [facility] Endoscopy [address] [place] [phone] Pedro Luis Tsai MD Hayes, Brett L, CRNA Gomes, Sheldon B, MD Hx of colonic polyps Discharge Disposition: Home or Self Care 08/22/2024 Telephone Gastroenterology - [place] 175 [facility] 175 [facility] [address] [place] [phone] Javed Romeo MD Special Procedure from Last [...] Months Results * COLONOSCOPY Anesthesia - MAC; [facility] ENDOSCOPY (10/05/2024 2:13 PM EST) [...] for surveillance. Narrative 10/05/2024 2:[address] [facility] GI Patient Name: Boone Gonzales Procedure Date: [...] Procedure Code(s): ? --- Professional --- ? 65098, Colonoscopy, flexible; with removal of ? tumor(s), polyp(s), or other lesion(s) by snare ? technique ? 02990, 59, Colonoscopy, flexible; with biopsy, single ? or multiple Diagnosis Code(s): ? --- Professional --- ? Z86.010, Personal history of colonic polyps ? D12.8, Benign neoplasm of rectum ? D12.3, Benign neoplasm of transverse colon (hepatic ? flexure or splenic flexure) CPT copyright 2020 [employer]. All rights reserved. The codes documented in this report are preliminary and upon information coder review may be revised to meet current compliance requirements. MD Pedro Luis Kasper MD 10/05/2024 2:15:09 PM This report has been signed electronically.Pedro Luis Tsai MD Number of Addenda: 0 Note Initiated On: 10/05/2024 1:50 PM Scope In: Scope Out: ? Endoscopy Department at [facility] - [address] [place] [address], ? [place] [address] Procedure Note Pedro Luis Tsai MD - 10/05/2024 [facility] GI Patient Name: Boone Gonzales Procedure Date: [...] without abnormality. Procedure Code(s): --- Professional --- 32198, Colonoscopy, flexible; with removal of tumor(s), polyp(s), or other lesion(s) by snare technique 08710, 59, Colonoscopy, flexible; with biopsy,single or multiple Diagnosis Code(s): --- Professional --- Z86.010, Personal history of colonic polyps D12.8, Benign neoplasm of rectum D12.3, Benign neoplasm of transverse colon (hepatic flexure or splenic flexure) CPT copyright 2020 [employer]. All rights reserved. The codes documented in this report are preliminary and upon information coder reviewmay be revised to meet current compliance requirements. MD Pedro Luis Kasper MD 10/05/2024 2:15:09 PM This report has been signed electronically.Pedro Luis Tsai MD Number of Addenda: 0 Note Initiated On: 10/05/2024 1:50 PM Scope In: Scope Out: Endoscopy Department at [facility] - [address] [place] [phone] IMPRESSION: - One 6 mm polyp in [...] MD LAB PATHOLOGY ORDERABLES Final Result [facility] [address] [place] [address], from Last 3 Months Insurance [facility] PL[employer] Care Teams Card Runner Relationship Specialty Start Date End Date Eugenia Sparrow MD [address] [place] [phone] PCP - General Internal Medicine 08/22/24
--- OUTSIDE RECORDS SUMMARY | 2024-10-30 17:02 | XMS_ITS | Clinical Summary ---
Author Organization [facility] Address [address] [place] [address] Care Team Providers Care Surgical Orderly Name Role Phone Tamara Short MD Primary [...] age to complete this topic Care Teams Surgical Orderly Relationship Specialty Start Date End Date Tamara Short MD [address] [place] [address] PCP - General Internal Medicine 11/25/17
== END 2024-10-30 15:56 | disposition home or self-care (01) ==
PROVIDERS: Emergency Provider Emergency Medicine; PCP Internal Medicine
DX: M54.42 Lumbago with sciatica, left side (principal); M47.26 Other spondylosis with radiculopathy, lumbar region; M79.605 Pain in left leg
CPT/HCPCS: 72100; 99282; 99283

== ENCOUNTER → 2024-10-30 13:49 | Outpatient (BNV) | payer OTHER, SELFPAY | PROVIDERS: Emergency Provider Emergency Medicine; PCP Internal Medicine; Visit Provider Radiology Diagnostic Radiology | DX: M47.816 Spondylosis without myelopathy or radiculopathy, lumbar region (principal) | CPT/HCPCS: 72100 ==

== ENCOUNTER 2024-11-16 09:01 | Outpatient (REF) | payer OTHER, SELFPAY ==
--- OUTSIDE RECORDS SUMMARY | 2024-11-16 09:54 | XMS_ITS | Clinical Summary ---
Author Organization [employer] [facility] Address [address] [place] [address] Care Team Providers Care Nurse Aide Name Role Phone Tamara Short MD Primary [...] age to complete this topic Care Teams Nurse Aide Relationship Specialty Start Date End Date Tamara Short MD [address] [place] [address] PCP - General Internal Medicine 11/25/17
--- OUTSIDE RECORDS SUMMARY | 2024-11-16 09:54 | XMS_ITS | Clinical Summary ---
Author Organization 175 [facility] Address [address] [place] [address] Phone Care Team Providers Care Statistical Clerk Advertising Name Role Phone Eugenia Sparrow MD Primary Care Provider [phone] Allergies Active Allergy Reactions Criticality Noted Date [...] Team Description 10/10/2024 Telephone Gastroenterology - [address] [facility] 299 [facility] [address] [place] [phone] Martine Quintanilla MA Results 10/05/2024 1:50 PM EST Anesthesia Event [facility] [address] [place] [phone] Zachary Harry MD 10/05/2024 1:05 PM EST - 10/05/2024 11:59 PM EST Hospital Encounter [facility] [address] [place] [phone] Pedro Luis Tsai MD Hayes, Brett L, CRNA Gomes, Sheldon B, MD Hx of colonic polyps Discharge Disposition: Home or Self Care 08/22/2024 Telephone Gastroenterology - [place] 175 [facility] 175 [facility] [address] [place] [phone] Javed Romeo MD Special Procedure from Last [...] Test 07/16/2022 10/31/2020, 10/30/2020, 10/23/2020 Influenza Vaccine (Season Ended) 2025 06/09/2010, 08/14/2009, 04/29/2009 Colorectal Cancer Screening: Colonoscopy 10/05/2029 [...] age to complete this topic Meningococcal B Vaccine Aged Out No l onger eligible based on patient's age to complete [...] Months Results * COLONOSCOPY Anesthesia - MAC; [facility] ENDOSCOPY (10/05/2024 2:13 PM EST) Anatomical [...] for surveillance. Narrative 10/05/2024 2:15 PM EST [facility] Patient Name: Boone Gonzales Procedure Date: [...] Procedure Code(s): ? --- Professional --- ? 97734, Colonoscopy, flexible; with removal of ? tumor(s), polyp(s), or other lesion(s) by snare ? technique ? 38957, 59, Colonoscopy, flexible; with biopsy, single ? or multiple Diagnosis Code(s): ? --- Professional --- ? Z86.010, Personal history of colonic polyps ? D12.8, Benign neoplasm of rectum ? D12.3, Benign neoplasm of transverse colon (hepatic ? flexure or splenic flexure) CPT copyright 2020 [employer]. All rights reserved. The codes documented in this report are preliminary and upon slp teacher review may be revised to meet current compliance requirements. MD Pedro Luis Kasper MD 10/05/2024 2:15:09 PM This report has been signed electronically.Pedro Luis Tsai MD Number of Addenda: 0 Note Initiated On: 10/05/2024 1:50 PM Scope In: Scope Out: ? Endoscopy Department at [facility] - [address] [place] [address], ? [place] [address] Procedure Note Pedro Luis Tsai MD - 10/05/2024 [facility] Patient Name: Boone Gonzales Procedure Date: [...] without abnormality. Procedure Code(s): --- Professional --- 54371, Colonoscopy, flexible; with removal of tumor(s), polyp(s), or other lesion(s) by snare technique 78005, 59, Colonoscopy, flexible; with biopsy,single or multiple Diagnosis Code(s): --- Professional --- Z86.010, Personal history of colonic polyps D12.8, Benign neoplasm of rectum D12.3, Benign neoplasm of transverse colon (hepatic flexure or splenic flexure) CPT copyright 2020 [employer]. All rights reserved. The codes documented in this report are preliminary and upon slp teacher reviewmay be revised to meet current compliance requirements. MD Pedro Luis Kasper MD 10/05/2024 2:15:09 PM This report has been signed electronically.Pedro Luis Tsai MD Number of Addenda: 0 Note Initiated On: 10/05/2024 1:50 PM Scope In: Scope Out: Endoscopy Department at [facility] - [address] [place] [phone] IMPRESSION: - One 6 mm polyp in [...] results. - [facility] Pedro Luis Tsai MD GI~PROCEDURE ORDERABLES Final R esult * Tissue exam (10/05/2024 2:06 PM EST) Final Diagnosis A. Large Intestine, Transverse Colon, polyp x1: - Tubular adenoma. B. Large Intestine, Rectum, polyp: - Polypoid rectal mucosa with prominent reactive lymphoid aggregates. - Negative for dysplasia. 10/06/2024 10:36 AM [facility] Gross Description A. Large Intestine, [...] on one slide. EVA 10/06/2024 10:36 AM [facility] Disclaimer Unless otherwise specified, all tissue is 10% NB formalin fixed and paraffin embedded. 10/06/2024 10:36 AM [facility] Tissue Transverse colon structure / Unknown 10/05/2024 2:06 PM EST 10/05/2024 3:20 PM EST Tissue specimen (specimen) Rectum structure / Unknown 10/05/2024 2:10 PM EST 10/05/2024 3:20 PM EST us Pedro Luis Tsai MD LAB PATHOLOGY ORDERABLES Final Result MALIA DORANTES [place] ([facility]) [facility] [address] [place] [address], from Last 3 Months Insurance [facility] [address] Care Teams Statistical Clerk Advertising Relationship Specialty Start Date End Date Eugenia Sparrow MD [address] [place] [phone] PCP - General Internal Medicine 08/22/24
[2024-11-16 11:43] LABS: Anion Gap 12 (12-20); Blood Urea Nitrogen 15 mg/dL (9-16); Carbon Dioxide 28 mmol/L (22-29); Chloride 106 mmol/L (96-108); Estimated Glomerular Filt Rate > 60; Potassium 3.7 mmol/L (3.3-5.1); Sodium 142 mmol/L (135-145)
[2024-11-16 12:06] LABS: Creatinine Urine 206.35 mg/dL; Protein/Creatinine Ratio, Ur 0.28 (<0.2); Total Protein Urine Random 58 mg/dL (<12)
== END 2024-11-16 09:02 | disposition home or self-care (01) ==
LOC: HO.LAB 09:01
PROVIDERS: PCP Internal Medicine; Visit Provider Internal Medicine Nephrology
DX: N18.31 Chronic kidney disease, stage 3a (principal)
CPT/HCPCS: 36415; 80051; 82565; 82570; 84156; 84520

== ENCOUNTER 2024-12-26 09:53 | Outpatient (AMB) | payer OTHER, SELFPAY ==
--- NOTE | 2024-12-26 10:01 | HO.NEPHOV_ITS ---
Vital Signs 12/26/24 10:03 Height 5 ft 10 in Weight 200 lb 2 oz BMI 28.7 BP 140/90 H Blood Pressure Location Lt brachial Position Sitting Pulse 69 Pulse Source Pulse Oximeter Pulse Oximetry (%) 93 Oxygen Delivery Method Room Air Intake Visit Reasons: 2 mnts f/u-Conf Line Haul Driver Required: No Accompanied by: Self / Same As Patient Allergies Penicillins Allergy (Severe, Verified 12/26/24 10:02) Anaphylaxis furosemide [From Lasix] Allergy (Intermediate, Verified 12/26/24 10:02) hive HPI Comments Details: Boone is a 54-year-old gentleman for evaluation of CKD on a back drop of high BMI and hypertension. He has a history of bladder tumor resection (2020). He is not a diabetic but has been a pre diabetic. His family history is significant for breast cancer in his mother and myocardial infarction along with kidney disease in his father, needing HD. His sister also has H/O ? CKD and a daughter has renal stones. He does not smoke and reports only limited alcohol consumption, primarily wine. Has H/O elevated liver enzymes and been followed up by PCP. He does not have any edema, new bone or back pain. He has H/O joint pains and takes NSAID's when he has severe pain. He denies any H/O vascular disease, carotid disease, PAD, LORY, CVA, CHF, CAD. He has no H/O hemoptysis, active hematuria, joint swelling, photosensitivity or skin rashes. [facility] Medical History Rheumatoid arthritis Rash Hypothyroid HTN (hypertension) Nocturnal hypoxemia AMANDEEP (obstructive sleep apnea) Obesity (BMI 30-39.9) Encounter to establish care Surgical History H/O transurethral resection of bladder tumor (TURBT) History of colonoscopy Family History Mother Breast cancer Father Heart attack CKD (chronic kidney disease) requiring chronic dialysis Brother No problems noted. Sister No problems noted. Sister No problems noted. Daughter No problems noted. Daughter No problems noted. Social History Housing: House Alcohol intake: current Alcohol intake frequency: a few times a month Alcohol type: wine Patient Tobacco Use Status: Never used Tobacco e-Cigarette/Vaping Use: Never Used Second Hand Smoke Exposure: No service: No Current occupational status: employed Current occupational exposures/hazards: No Cognitive needs: No Hearing needs: No Vision needs: No Review of Systems Const All systems reviewed & are unremarkable except as noted in HPI and below Physical Exam Vital Signs: Last Vital Signs Pulse 69 12/26/24 10:03 BP 140/90 H 12/26/24 10:03 Pulse Ox 93 12/26/24 10:03 Oxygen Delivery Method Room Air 12/26/24 10:03 BMI result Body Mass Index 28.7 Const General: comfortable and no acute distress Orientation/consciousness: patient oriented x3 HEENT Head: Yes normocephalic Mouth: Normal oral and palatal mucosa present Eyes EOM: EOMs intact bilaterally Neck Neck: Yes supple Resp Auscultation: clear to auscultation bilaterally Cardio Jugular venous distension: no JVD Rate: regular rate GI Palpation (GI): Soft to palpation Auscultation: normal bowel sounds General: Yes no CVA tenderness Back/Spine/Pelvis Back: no CVA tenderness Skin General skin exam: no rashes or lesions noted Neuro General: patient oriented x3 and moves all extremities Extrem General: Yes no pedal edema Results Reviewed Nephrology Results: Hgb 17.6 g/dl (14.0-18.0) 10/02/24 WBC 7.9 X10*3/uL (4.8-10.8) 10/02/24 Plt Count 277 X10*3/uL (160-400) 10/02/24 Sodium 142 mmol/L (135-145) 11/16/24 Potassium 3.7 mmol/L (3.3-5.1) 11/16/24 Chloride 106 mmol/L (96-108) 11/16/24 Carbon Dioxide 28 mmol/L (22-29) 11/16/24 BUN 15 mg/dL (9-16) 11/16/24 Creatinine 1.12 mg/dL (0.5-1.4) 11/16/24 Calcium 9.3 mg/dL (8.4-10.2) 09/20/24 Urine Protein 100 (2+) mg/dL (Neg-Trace) H 10/02/24 Urine Creatinine 206.35 mg/dL 11/16/24 Protein/Creatinin Ratio 0.28 (<0.2) H 11/16/24 Assessment & Plan Assessment & Plan (1) CKD (chronic kidney disease) stage 3, GFR 30-59 ml/min: Code(s): N18.30 - Chronic kidney disease, stage 3 unspecified Category: Medical Qualifiers: Chronic kidney disease stage 3 subtype: stage 3a (GFR 45-59) Qualified Code(s): N18.31 - Chronic kidney disease, stage 3a (2) Proteinuria: Code(s): R80.9 - Proteinuria, unspecified Category: Medical Qualifiers: Proteinuria type: other Qualified Code(s): R80.8 - Other proteinuria (3) Renal cyst: Code(s): N28.1 - Cyst of kidney, acquired Category: Medical (4) Essential hypertension: Code(s): I10 - Essential (primary) hypertension Category: Medical Plan Boone has CKD 3 with hypertension on a back drop of H/O bladder tumor. He is a pre diabetic. Differential diagnosis is broad at this point. I asked him to abstain from NSAID's and maintain good hydration. I reviewed extensive work up including 24 hour urine for protein. I increased his losartan to 25 mg twice a day. I reviewed his USS from last year which I shall repeat for follow up of his renal cysts. He may need a renal biopsy pending evolving data. All questions answered. Labs 1 M; F/U given in 2 month Orders: Orders Creatinine 1 Month N18.31 - Chronic kidney disease, stage 3a, R80.8 - Other proteinuria Blood Urea Nitrogen 1 Month N18.31 - Chronic kidney disease, stage 3a, R80.8 - Other proteinuria Electrolytes 1 Month N18.31 - Chronic kidney disease, stage 3a, R80.8 - Other proteinuria Medications: Changed From losartan 25 mg PO DAILY 90 tabs 3RF To losartan 25 mg PO BID 90 tabs 3RF Discontinued naproxen Discontinued Reason: Doctor's Order 500 mg PO BID PRN 14 tabs 0RF pain Coding Level of Care Code Est Pt Level 4 (41686) Diagnoses Stage 3a chronic kidney disease N18.31 Chronic kidney disease stage 3 subtype: stage 3a (GFR 45-59) Other proteinuria R80.8 Proteinuria type: other Renal cyst N28.1 Essential hypertension I10
[2024-12-26 10:03] VITALS: BP 140/90; PULSE 69; O2SAT 93; BMI 28.7
--- OUTSIDE RECORDS SUMMARY | 2024-12-26 10:31 | XMS_ITS | Clinical Summary ---
Author Organization [facility] Address [address] [place] [address] Care Team Providers Care Plant And Instrument Engineer Name Role Phone Tamara Short MD Primary [...] age to complete this topic Care Teams Plant And Instrument Engineer Relationship Specialty Start Date End Date Tamara Short MD [address] [facility] [place] [place] [address] PCP - General Internal Medicine 11/25/17
== END 2024-12-26 10:23 | disposition home or self-care (01) ==
LOC: HO.HKAS 09:53
PROVIDERS: PCP Internal Medicine; Visit Provider Internal Medicine Nephrology
DX: N18.31 Chronic kidney disease, stage 3a (principal); R80.8 Other proteinuria; N28.1 Cyst of kidney, acquired; I10 Essential (primary) hypertension
CPT/HCPCS: 99214

== ENCOUNTER → 2024-12-26 09:53 | Outpatient (BNVA) | payer OTHER, SELFPAY | PROVIDERS: PCP Internal Medicine; Visit Provider Internal Medicine Nephrology | DX: I12.9 Hypertensive chronic kidney disease with stage 1 through stage 4 chronic kidney disease, or unspecified chronic kidney disease (principal); N18.31 Chronic kidney disease, stage 3a; N28.1 Cyst of kidney, acquired; R80.8 Other proteinuria | CPT/HCPCS: 99212 ==

== ENCOUNTER 2025-02-15 11:11 | Outpatient (AMB) | payer OTHER, SELFPAY ==
[2025-02-15 11:23] VITALS: BP 116/82; PULSE 66; TEMP 37.3; O2SAT 96; BMI 28.3
--- NOTE | 2025-02-15 11:23 | MHC.OFFWIV ---
Intake Vital Signs 02/15/25 11:23 Height 5 ft 10 in Weight 197 lb 4 oz BMI 28.3 BP 116/82 Blood Pressure Location Rt brachial Position Sitting Pulse 66 Pulse Source Pulse Oximeter Temp 99.2 F Temp Source Oral Pulse Oximetry (%) 96 Oxygen Delivery Method Room Air Intake Visit Reasons: EP Swollen RT eye Intake Note: Patient presents with swollen right eye times 3 days...? stye Patient Tobacco Use Status: Never used Tobacco Assistant Professor Of Education Required: No Allergies Penicillins Allergy (Severe, Verified 02/15/25 11:28) Anaphylaxis furosemide (From Lasix) Allergy (Intermediate, Verified 02/15/25 11:28) hive Do you need a note to return to daycare/school/sports/work: Yes HPI HPI Comments History of Present Illness Details 55 y/o Male patient who presents to the walk in clinic with c/o Right eye redness and swelling for 3 days. He was mowing his lawn and believes some dirt might have gotten into his eye. Denies vision changes or severe pain. [facility] Medical History (Updated 02/15/25 @ 11:57 by Bella Miguel NP) Periorbital edema of right eye Rheumatoid arthritis Rash Hypothyroid HTN (hypertension) Nocturnal hypoxemia AMANDEEP (obstructive sleep apnea) Obesity (BMI 30-39.9) Encounter to establish care Surgical History H/O transurethral resection of bladder tumor (TURBT) History of colonoscopy Family History Mother Breast cancer Father Heart attack CKD (chronic kidney disease) requiring chronic dialysis Brother No problems noted. Sister No problems noted. Sister No problems noted. Daughter No problems noted. Daughter No problems noted. Social History Housing: House Alcohol intake: current Alcohol intake frequency: a few times a month Alcohol type: wine Patient Tobacco Use Status: Never used Tobacco e-Cigarette/Vaping Use: Never Used Second Hand Smoke Exposure: No service: No Current occupational status: employed Current occupational exposures/hazards: No Cognitive needs: No Hearing needs: No Vision needs: No Review of Systems Const All systems reviewed & are unremarkable except as noted in HPI and below Physical Exam Vital Signs: Last Vital Signs Temp 99.2 F 02/15/25 11:23 Pulse 66 02/15/25 11:23 BP 116/82 02/15/25 11:23 Pulse Ox 96 02/15/25 11:23 Oxygen Delivery Method Room Air 02/15/25 11:23 BMI result Body Mass Index 28.3 Const General: no acute distress Orientation/consciousness: patient oriented x3 Eyes Periorbital: periorbital findings abnormal right periorbital swelling, periorbital tenderness and periorbital erythema; no crepitus Conjunctivae: conjunctival abnormal right conjunctival injection Pupils: Equal, round and reactive pupils present EOM: EOMs intact bilaterally Direct Ophthalmoscopy: normal light reflex Neuro General: patient oriented x3, gait normal and moves all extremities Cranial nerves: Yes Equal, round and reactive pupils present Psych Speech and movement: Normal speech and movement present Assessment & Plan Assessment & Plan (1) Periorbital edema of right eye: Code(s): R60.0 - Localized edema Plan: Ordered Abx Advised to use Warm compress Acetaminophen for pain relief. Medications: New erythromycin 1 appl ophthalmic (eye) Q8H 50 grams 0RF R60.0 - Localized edema Coding Level of Care Code Est Pt Level 4 (60298) Diagnoses Periorbital edema of right eye R60.0 Time Spent (min) 20
--- OUTSIDE RECORDS SUMMARY | 2025-02-15 12:01 | XMS_ITS | Clinical Summary ---
Author Organization 175 [facility] Address [address] [place] [address] Phone Care Team Providers Care Housekeeping Aide Name Role Phone Eugenia Sparrow MD Primary Care Provider [phone] Allergies Active Allergy Reactions Criticality Noted Date [...] by the office 2 tablet 5 Active Surgical History Surgery Date Site/Laterality Comments BLADDER [...] Years (1 of 2 - PCV) 01/23/1987 Zoster [...] 07/16/2022 10/31/2020, 10/30/2020, 10/23/2020 Influenza Vaccine (#1) 2025 0, 08/14/2009, 04/29/2009 Colorectal Cancer Screening: Colonoscopy [...] 2:13 PM EST Hx of colonic polyps from Last 3 Months or Most Recently Relevant to Health Maintenance Results * COLONOSCOPY Anesthesia - MAC; [facility] ENDOSCOPY (10/05/2024 2:13 PM EST) Anatomical Region Laterality Modality Endoscopy 10/05/2024 1:50 PM EST Impressions 10/05/2024 2:15 PM EST - One 6 mm polyp in the rectum, removed with a cold snare. Resected and retrieved. - One 3 mm polyp in the transverse colon, removed with a jumbo cold forceps. Resected and retrieved. - The examination was otherwise normal. Recommendation: - Patient has a contact number available for emergencies. The signs and symptoms of potential delayed complications were discussed with the patient. Return to normal activities tomorrow. Written discharge instructions were provided to the patient. - Resume previous diet. - Continue present medications. - Await pathology results. - Repeat colonoscopy in 5-10 years for surveillance. Narrative 10/05/2024 2:15 PM EST [facility] GI Patient Name: Boone Gonzales Procedure Date: 10/05/2024 1:50 PM Date of : 1970 Age: 54 Room: ROOM 15 Gender: Male Note Status: Finalized Attending MD: Pedro Luis Tsai MD, Procedure Date No Time: 10/05/2024 Procedure: Colonoscopy Indications: High risk colon cancer surveillance: Personal history of colonic polyps Providers: Pedro Luis Tsai MD Referring MD: Pedro Luis Tsai MD Medicines: Monitored Anesthesia Care Complications: No immediate complications. Estimated Blood Loss: Estimated blood loss was minimal. Procedure: After I obtained informed consent, the scope was passed under direct vision. Throughout the procedure, the patient's blood pressure, pulse, and oxygen [...] The polyp was removed with a jumbo cold forceps. Resection and retrieval were complete. The exam was otherwise without abnormality. Procedure Code(s): --- Professional --- 31252, Colonoscopy, flexible; with removal of tumor(s), polyp(s), or other lesion(s) by snare technique 60673, 59, Colonoscopy, flexible; with biopsy, single or multiple Diagnosis Code(s): --- Professional --- Z86.010, Personal history of colonic polyps D12.8, Benign neoplasm of rectum D12.3, Benign neoplasm of transverse colon (hepatic flexure or splenic flexure) CPT copyright 2020 [employer]. All rights reserved. The codes documented in this report are preliminary and upon resident service coordinator review may be revised to meet current compliance requirements. MD Pedro Luis Kasper MD 10/05/2024 2:15:09 PM This report has been signed electronically.Pedro Luis Tsai MD Number of Addenda: 0 Note Initiated On: 10/05/2024 1:50 PM Scope In: Scope Out: Endoscopy Department at [facility] - [address] [place] [phone] Procedure Note Pedro Luis Tsai MD - 10/05/2024 [facility] GI Patient Name: Boone Gonzales Procedure [...] without abnormality. Procedure Code(s): --- Professional --- 03306, Colonoscopy, flexible; with removal of tumor(s), polyp(s), or other lesion(s) by snare technique 87810, 59, Colonoscopy, flexible; with biopsy,single or multiple Diagnosis Code(s): --- Professional --- Z86.010, Personal history of colonic polyps D12.8, Benign neoplasm of rectum D12.3, Benign neoplasm of transverse colon (hepatic flexure or splenic flexure) CPT copyright 2020 [employer]. All rights reserved. The codes documented in this report are preliminary and upon resident service coordinator reviewmay be revised to meet current compliance requirements. MD Pedro Luis Kasper MD 10/05/2024 2:15:09 PM This report has been signed electronically.Pedro Luis Tsai MD Number of Addenda: 0 Note Initiated On: 10/05/2024 1:50 PM Scope In: Scope Out: Endoscopy Department at [facility] - [address] [place] [phone] IMPRESSION: - One 6 mm polyp in [...] Tsai MD GI~PROCEDURE ORDERABLES Final R esult from Last 3 Months or Most Recently Relevant to Health Maintenance Insurance [facility] Care Teams Housekeeping Aide Relationship Specialty Start Date End Date Eugenia Sparrow MD [address] [place] [phone] PCP - General Internal Medicine 08/22/24
--- OUTSIDE RECORDS SUMMARY | 2025-02-15 12:01 | XMS_ITS | Clinical Summary ---
Author Organization [facility] Address [address] [place] [address] Care Team Providers Care Personalized Living Assistant Name Role Phone Tamara Short MD Primary [...] Cancer Screening (Colonoscopy) 01/23/2013 Influenza Vaccine (#1) 2025 RSV Ped < 20 months Aged Out No longe r eligible based on patient's age to complete this topic Care Teams Personalized Living Assistant Relationship Specialty Start Date End Date Tamara Short MD [address] [place] [address] PCP - General Internal Medicine 11/25/17
== END 2025-02-15 12:07 | disposition home or self-care (01) ==
PROVIDERS: PCP Internal Medicine; Visit Provider Nurse Practitioner Family
DX: R60.0 Localized edema (principal)

== ENCOUNTER → 2025-02-15 11:11 | Outpatient (BNVA) | payer OTHER, SELFPAY | PROVIDERS: PCP Internal Medicine; Visit Provider Nurse Practitioner Family | DX: R60.0 Localized edema (principal) | CPT/HCPCS: 99212 ==

== ENCOUNTER 2025-02-20 09:47 | Outpatient (AMB) | payer OTHER, SELFPAY ==
[2025-02-20 09:49] VITALS: BP 132/86; BMI 28.1
--- NOTE | 2025-02-20 09:49 | A.OFFPC_ITS ---
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 Required: No Accompanied by: Self / Same As Patient Allergies Penicillins Allergy (Severe, Verified 02/20/25 09:59) Anaphylaxis furosemide (From Lasix) Allergy (Intermediate, Verified 02/20/25 09:59) hive Medication List - Last Reconciled 02/20/25 by Eugenia Sparrow MD acetaminophen 1,000 mg (2 x 500 mg) PO Q6H PRN 30 days amlodipine 5 mg PO DAILY cholecalciferol (vitamin D3) 25 mcg PO DAILY 90 days cyclobenzaprine 10 mg PO BEDTIME erythromycin 1 appl ophthalmic (eye) Q8H fluoxetine 10 mg PO DAILY 90 days levothyroxine 150 mcg PO DAILY 90 days lidocaine 4% 1 patch topical DAILY PRN losartan 25 mg PO BID metoprolol tartrate 100 mg PO BID 90 days omeprazole 20 mg PO DAILY oxybutynin chloride ER 10 mg PO DAILY tadalafil (Cialis) 5 mg PO DAILY 90 days Tobacco use date assessed: 08/22/24 Dental Screening Dental Screen Date: 08/22/24 HPI HPI Comments History of Present Illness Details The patient is a 55-year-old male presenting for follow-up of chronic conditions including hypertension, chronic kidney disease, hypothyroidism, and hyperlipidemia. The patient has a history of essential hypertension, currently managed with losartan 25 mg twice daily and metoprolol 100 mg twice daily as prescribed by a underwater trapper. His blood pressure was noted to be well-controlled during the visit. Chronic kidney disease stage 3 is being monitored by nephrology, with associated proteinuria. The patient is advised to avoid NSAIDs due to potential renal complications. The patient has been on levothyroxine 150 mcg for hypothyroidism for an extended period, with plans to repeat thyroid function tests due to previous concerns. Hyperlipidemia was noted with a cholesterol level of 209 mg/dL, and follow-up lipid panel is planned in six months. The patient reports symptoms of depression and is currently experiencing osteoarthritis-related joint pain, particularly in the spine, as noted in a previous imaging study. Tylenol is recommended for pain management to avoid NSAID-related complications. The patient is also managing urinary incontinence with oxybutynin and erectile dysfunction with tadalafil. Liver enzymes were previously elevated, and repeat testing is planned to monitor liver function. FORMERLY [facility], [facility]–1983 Medical History Periorbital edema of right eye Rheumatoid arthritis Rash Hypothyroid HTN (hypertension) Nocturnal hypoxemia AMANDEEP (obstructive sleep apnea) Obesity (BMI 30-39.9) Encounter to establish care Surgical History H/O transurethral resection of bladder tumor (TURBT) History of colonoscopy Family History Mother Breast cancer Father Heart attack CKD (chronic kidney disease) requiring chronic dialysis Brother No problems noted. Sister No problems noted. Sister No problems noted. Daughter No problems noted. Daughter No problems noted. Social History Housing: House Alcohol intake: current Alcohol intake frequency: a few times a month Alcohol type: wine Patient Tobacco Use Status: Never used Tobacco e-Cigarette/Vaping Use: Never Used Second Hand Smoke Exposure: No service: No Current occupational status: employed Current occupational exposures/hazards: No Cognitive needs: No Hearing needs: No Vision needs: No Questionnaire Thrive Questionnaire Date Thrive assessed: 08/16/24 I am a: Patient What is your living situation today?: I have a steady place to live Within the past 12 months, did the food you bought not last and you didn't have the money to get more?: Sometimes True Within the past 12 months, did you worry whether your food would run out before you got money to buy more?: Sometimes True Do you have trouble paying for medicines?: Yes Do you have trouble getting transportation to medical appointments?: No Do you have trouble paying your heating and electricity bill?: I choose not to answer this question Do you have trouble taking care of your child, family member or friend?: No Do you have trouble with day-to-day activities such as bathing, preparing meals, shopping, managing finances, etc.?: No Are you currently unemployed and looking for a job?: No Are you interested in more education?: I choose not to answer this question Please select the resources that you would like help with: None Currently or been in a relationship where the following occur: No concerns reported THRIVE Score: 2 DEMETRIUS-7 AMB Questionnaire DEMETRIUS-7 Date DEMETRIUS - 7 assessed: 08/22/24 Source: Developed by Drs. Everton Robledo, Dee Suh, Jaison Rain and colleagues, with an educational roland from [employer]. Review of Systems Const All systems reviewed & are unremarkable except as noted in HPI and below Card Denies chest pain at rest, Denies chest pain with activity, Denies edema, Denies irregular heart rhythm, Denies claudication, Denies dyspnea, Denies dyspnea on exertion, Denies orthopnea, Denies paroxysmal nocturnal dyspnea and Denies slow heart rate Resp Denies cough, Denies dyspnea and Denies dyspnea on exertion GI Denies abdominal pain, Denies change in bowel habits, Denies excessive flatus, Denies nausea and Denies vomiting Denies urinary hesitancy, Denies urinary incontinence and Denies urinary urgency Neuro Denies lack of coordination Physical exam (Primary Care) Vital Signs: Last Vital Signs BP 132/86 02/20/25 09:49 BMI result Body Mass Index 28.1 Tobacco/Smoking Status: Tobacco use Status Tobacco use date assessed 08/22/24 02/20/25 09:56 Patient Tobacco Use Status Never used Tobacco 02/20/25 09:56 e-Cigarette/Vaping Use Never Used 02/20/25 09:56 Thrive Assessment: Date of Thrive Assessment Date Thrive assessed 08/16/24 02/20/25 09:56 Currently or been in a relationship where the following occur: No concerns reported Resp Effort & Inspection: normal respiratory effort Auscultation: clear to auscultation bilaterally Cardio Jugular venous distension: no JVD Rate: regular rate Rhythm: regular rhythm Heart sounds: S1 normal heart sound present and S2 normal heart sound present Extrem General: Yes full ROM Coding Level of Care Code Est Pt Level 4 (99910) Complex EM visit Add On G2211 Diagnoses Essential hypertension I10 Hypothyroidism E03.9 Mild major depression F32.0 Transaminitis R74.01 Stage 3a chronic kidney disease N18.31 Chronic kidney disease stage 3 subtype: stage 3a (GFR 45-59) Time Spent (min) 23 Assessment & Plan Assessment & Plan (1) Essential hypertension: Code(s): I10 - Essential (primary) hypertension Category: Medical (2) Hypothyroidism: Code(s): E03.9 - Hypothyroidism, unspecified Category: Medical (3) Mild major depression: Code(s): F32.0 - Major depressive disorder, single episode, mild Category: Medical (4) Transaminitis: Code(s): R74.01 - Elevation of levels of liver transaminase levels Category: Medical (5) CKD (chronic kidney disease) stage 3, GFR 30-59 ml/min: Code(s): N18.30 - Chronic kidney disease, stage 3 unspecified Category: Medical Qualifiers: Chronic kidney disease stage 3 subtype: stage 3a (GFR 45-59) Qualified Code(s): N18.31 - Chronic kidney disease, stage 3a Plan The patient will continue with current antihypertensive medications, losartan and metoprolol, as prescribed by nephrology, given the well-controlled blood pressure. Thyroid function tests will be repeated to monitor hypothyroidism, and the patient will continue on levothyroxine 150 mcg. A follow-up lipid panel is scheduled in six months to monitor hyperlipidemia. The patient is advised to use Tylenol for osteoarthritis-related pain to avoid NSAID-related renal complications. Liver function tests will be repeated to assess previously elevated liver enzymes. The patient will continue using oxybutynin for urinary incontinence and tadalafil for erectile dysfunction. Patient was informed and verbally consented to the use of an ambient scribe for clinic note documentation during this visit. I discussed with the patient the importance of continuing current medications for hypertension and the need for regular monitoring of thyroid function and lipid levels. We also talked about the risks associated with NSAIDs and the safer alternative of using Tylenol for joint pain. The patient was informed about the plan to repeat liver function tests and the continuation of current treatments for urinary incontinence and erectile dysfunction. Orders: Orders Comprehensive [place]. Panel Fast 6 Months I10 - Essential (primary) hypertension Lipid Panel 6 Months E78.5 - Hyperlipidemia, unspecified, I10 - Essential (primary) hypertension Vitamin D 25-OH Total Today E55.9 - Vitamin D deficiency, unspecified Liver Panel Today R74.01 - Elevation of levels of liver transaminase levels Thyroid Stimulating Hormone Today E03.9 - Hypothyroidism, unspecified Patient Instructions: - Continue taking losartan and metoprolol as prescribed. - Schedule and complete thyroid function tests as discussed. - Use Tylenol for joint pain instead of NSAIDs. - Follow up for lipid panel in six months. - Repeat liver function tests as planned.
--- OUTSIDE RECORDS SUMMARY | 2025-02-20 10:34 | XMS_ITS | Clinical Summary ---
Author Organization [address] [facility] Address [address] [place] [address] Phone Care Team Providers Care Correctional Captain Name Role Phone Eugenia Sparrow MD Primary Care Provider [phone] Allergies Active Allergy Reactions Criticality Noted Date [...] 08/31/2020, 08/03/2020 Cholesterol Screening (Lipid Panel) 07/11/2022 HIV Screening 07/11/2022 Hepatitis C Screening 07/11/2022 Social Influencers of Health Screening 07/11/2022 Hypertension/CHF/CAD Annual BMP Blood Test 07/16/2022 10/31/2020, 10/30/2020, 10/23/2020 Depression Screening 08/02/2024 Influenza Vaccine (#1) 2025 0, 08/14/2009, 04/29/2009 [...] Maintenance Results * COLONOSCOPY Anesthesia - MAC; [email or web address] ENDOSCOPY (10/05/2024 2:13 PM EST) Anatomical Region [...] for surveillance. Narrative 10/05/2024 2:15 PM EST [facility] GI Patient Name: Boone Gonzales Procedure Date: [...] without abnormality. Procedure Code(s): --- Professional --- 57399, Colonoscopy, flexible; with removal of tumor(s), polyp(s), or other lesion(s) by snare technique 17055, 59, Colonoscopy, flexible; with biopsy, single or multiple Diagnosis Code(s): --- Professional --- Z86.010, Personal history of colonic polyps D12.8, Benign neoplasm of rectum D12.3, Benign neoplasm of transverse colon (hepatic flexure or splenic flexure) CPT copyright 2020 [employer]. All rights reserved. The codes documented in this report are preliminary and upon employment interviewer review may be revised to meet current compliance requirements. MD Pedro Luis Kasper MD 10/05/2024 2:15:09 PM This report has been signed electronically.Pedor Luis Tsai MD Number of Addenda: 0 Note Initiated On: 10/05/2024 1:50 PM Scope In: Scope Out: Endoscopy Department at [facility] - [address] [place] [phone] Procedure Note Pedro Luis Tsai MD - 10/05/2024 [facility] GI Patient Name: Boone Gonzales Procedure Date: [...] without abnormality. Procedure Code(s): --- Professional --- 25158, Colonoscopy, flexible; with removal of tumor(s), polyp(s), or other lesion(s) by snare technique 92972, 59, Colonoscopy, flexible; with biopsy,single or multiple Diagnosis Code(s): --- Professional --- Z86.010, Personal history of colonic polyps D12.8, Benign neoplasm of rectum D12.3, Benign neoplasm of transverse colon (hepatic flexure or splenic flexure) CPT copyright 2020 [employer]. All rights reserved. The codes documented in this report are preliminary and upon employment interviewer reviewmay be revised to meet current compliance requirements. MD Pedro Luis Kasper MD 10/05/2024 2:15:09 PM This report has been signed electronically.Pedro Luis Tsai MD Number of Addenda: 0 Note Initiated On: 10/05/2024 1:50 PM Scope In: Scope Out: Endoscopy Department at [facility] - [address] [place] [phone] IMPRESSION: - One 6 mm polyp in [...] Most Recently Relevant to Health Maintenance Insurance [facility] Care Teams Correctional Captain Relationship Specialty Start Date End Date Eugenia Sparrow MD [address] [place] [phone] PCP - General Internal Medicine 08/22/24
--- OUTSIDE RECORDS SUMMARY | 2025-02-20 10:34 | XMS_ITS | Clinical Summary ---
Author Organization [facility] Address [address] [place] [address] Care Team Providers Care Molder Setter Name Role Phone Tamara Short MD Primary [...] age to complete this topic Care Teams Molder Setter Relationship Specialty Start Date End Date Tamara Short MD [address] [place] [address] PCP - General Internal Medicine 11/25/17
== END 2025-02-20 10:12 | disposition home or self-care (01) ==
LOC: HO.HMCH 09:47
PROVIDERS: PCP Internal Medicine; Visit Provider Internal Medicine
DX: I12.9 Hypertensive chronic kidney disease with stage 1 through stage 4 chronic kidney disease, or unspecified chronic kidney disease (principal); E03.9 Hypothyroidism, unspecified; F32.0 Major depressive disorder, single episode, mild; N18.31 Chronic kidney disease, stage 3a; R74.01 Elevation of levels of liver transaminase levels

== ENCOUNTER → 2025-02-20 09:47 | Outpatient (BNVA) | payer OTHER, SELFPAY | PROVIDERS: PCP Internal Medicine; Visit Provider Internal Medicine | DX: I12.9 Hypertensive chronic kidney disease with stage 1 through stage 4 chronic kidney disease, or unspecified chronic kidney disease (principal); N18.9 Chronic kidney disease, unspecified; E03.9 Hypothyroidism, unspecified; E78.5 Hyperlipidemia, unspecified; F32.0 Major depressive disorder, single episode, mild; R74.01 Elevation of levels of liver transaminase levels; N18.31 Chronic kidney disease, stage 3a; Z79.899 Other long term (current) drug therapy; E55.9 Vitamin D deficiency, unspecified | CPT/HCPCS: 99212 ==

== ENCOUNTER 2025-02-23 10:11 | Outpatient (REF) | payer OTHER, SELFPAY ==
--- OUTSIDE RECORDS SUMMARY | 2025-02-23 10:28 | XMS_ITS | Clinical Summary ---
Author Organization [facility] Address [address] [place] [address] Care Team Providers Care Furnace Attendant Name Role Phone Tamara Short MD Primary [...] age to complete this topic Care Teams Furnace Attendant Relationship Specialty Start Date End Date Tamara Short MD [address] [place] [address] PCP - General Internal Medicine 11/25/17
--- OUTSIDE RECORDS SUMMARY | 2025-02-23 10:28 | XMS_ITS | Clinical Summary ---
Author Organization [address] [facility] Address [address] [place] [address] Phone Care Team Providers Care Salesperson Books Name Role Phone Eugenia Sparrow MD Primary Care Provider [phone] Allergies Active Allergy Reactions Criticality Noted Date [...] Maintenance Results * COLONOSCOPY Anesthesia - MAC; [facility] ENDOSCOPY (10/05/2024 2:13 PM EST) [...] for surveillance. Narrative 10/05/2024 2:[address] [facility] GI Patient Name: Boone Gonzales Procedure Date: [...] without abnormality. Procedure Code(s): --- Professional --- 16405, Colonoscopy, flexible; with removal of tumor(s), polyp(s), or other lesion(s) by snare technique 70536, 59, Colonoscopy, flexible; with biopsy, single or multiple Diagnosis Code(s): --- Professional --- Z86.010, Personal history of colonic polyps D12.8, Benign neoplasm of rectum D12.3, Benign neoplasm of transverse colon (hepatic flexure or splenic flexure) CPT copyright 2020 [employer]. All rights reserved. The codes documented in this report are preliminary and upon dock boss review may be revised to meet current compliance requirements. MD Pedro Luis Kasper MD 10/05/2024 2:15:09 PM This report has been signed electronically.Pedro Luis Tsai MD Number of Addenda: 0 Note Initiated On: 10/05/2024 1:50 PM Scope In: Scope Out: Endoscopy Department at [facility] - [address] [place] [phone] Procedure Note Pedro Luis Tsai MD - 10/05/[address] [facility] GI Patient Name: Boone Gonzales Procedure Date: [...] without abnormality. Procedure Code(s): --- Professional --- 58646, Colonoscopy, flexible; with removal of tumor(s), polyp(s), or other lesion(s) by snare technique 59754, 59, Colonoscopy, flexible; with biopsy,single or multiple Diagnosis Code(s): --- Professional --- Z86.010, Personal history of colonic polyps D12.8, Benign neoplasm of rectum D12.3, Benign neoplasm of transverse colon (hepatic flexure or splenic flexure) CPT copyright 2020 [employer]. All rights reserved. The codes documented in this report are preliminary and upon dock boss reviewmay be revised to meet current compliance requirements. MD Pedro Luis Kasper MD 10/05/2024 2:15:09 PM This report has been signed electronically.Pedro Luis Tsai MD Number of Addenda: 0 Note Initiated On: 10/05/2024 1:50 PM Scope In: Scope Out: Endoscopy Department at [facility] - [address] [place] [phone] IMPRESSION: - One 6 mm polyp in [...] Most Recently Relevant to Health Maintenance Insurance [facility] Care Teams Salesperson Books Relationship Specialty Start Date End Date Eugenia Sparrow MD [address] [place] [address] PCP - General Internal Medicine 08/22/24
[2025-02-23 13:24] LABS: Anion Gap 11 (12-20); Blood Urea Nitrogen 14 mg/dL (9-16); Carbon Dioxide 29 mmol/L (22-29); Chloride 107 mmol/L (96-108); Estimated Glomerular Filt Rate > 60; Potassium 4.4 mmol/L (3.3-5.1); Sodium 143 mmol/L (135-145)
== END 2025-02-23 10:12 | disposition home or self-care (01) ==
LOC: HO.HKASLDS 10:11
PROVIDERS: Visit Provider Internal Medicine Nephrology
DX: N18.31 Chronic kidney disease, stage 3a (principal); R80.8 Other proteinuria
CPT/HCPCS: 36415; 80051; 82565; 84520

== ENCOUNTER 2025-02-27 09:45 | Outpatient (AMB) | payer OTHER, SELFPAY ==
--- NOTE | 2025-02-27 10:20 | HO.NEPHOV_ITS ---
Vital Signs 02/27/25 10:21 Height 5 ft 10 in Weight 199 lb 4 oz BMI 28.6 BP 150/90 H Blood Pressure Location Lt brachial Position Sitting Pulse 69 Pulse Source Pulse Oximeter Pulse Oximetry (%) 97 Oxygen Delivery Method Room Air Intake Visit Reasons: 2 mo follow up-Conf Needle Setter Required: No Accompanied by: Self / Same As Patient Allergies Penicillins Allergy (Severe, Verified 02/27/25 10:21) Anaphylaxis furosemide (From Lasix) Allergy (Intermediate, Verified 02/27/25 10:21) hive HPI Comments Details: Boone is a 55-year-old gentleman for evaluation of CKD on a back drop of high BMI and hypertension. He has a history of bladder tumor resection (2020). He is not a diabetic but has been a pre diabetic. His family history is significant for breast cancer in his mother and myocardial infarction along with kidney disease in his father, needing HD. His sister also has H/O ? CKD and a daughter has renal stones. He does not smoke and reports only limited alcohol consumption, primarily wine. Has H/O elevated liver enzymes and been followed up by PCP. He does not have any edema, new bone or back pain. He has H/O joint pains and takes NSAID's when he has severe pain. He denies any H/O vascular disease, carotid disease, PAD, LORY, CVA, CHF, CAD. He has no H/O hemoptysis, active hematuria, joint swelling, photosensitivity or skin rashes [facility] Medical History Periorbital edema of right eye Rheumatoid arthritis Rash Hypothyroid HTN (hypertension) Nocturnal hypoxemia AMANDEEP (obstructive sleep apnea) Obesity (BMI 30-39.9) Encounter to establish care Surgical History H/O transurethral resection of bladder tumor (TURBT) History of colonoscopy Family History Mother Breast cancer Father Heart attack CKD (chronic kidney disease) requiring chronic dialysis Brother No problems noted. Sister No problems noted. Sister No problems noted. Daughter No problems noted. Daughter No problems noted. Social History Housing: House Alcohol intake: current Alcohol intake frequency: a few times a month Alcohol type: wine Patient Tobacco Use Status: Never used Tobacco e-Cigarette/Vaping Use: Never Used Second Hand Smoke Exposure: No service: No Current occupational status: employed Current occupational exposures/hazards: No Cognitive needs: No Hearing needs: No Vision needs: No Review of Systems Const All systems reviewed & are unremarkable except as noted in HPI and below Physical Exam Vital Signs: Last Vital Signs Pulse 69 02/27/25 10:21 BP 150/90 H 02/27/25 10:21 Pulse Ox 97 02/27/25 10:21 Oxygen Delivery Method Room Air 02/27/25 10:21 BMI result Body Mass Index 28.6 Const General: comfortable and no acute distress Orientation/consciousness: patient oriented x3 HEENT Head: Yes normocephalic Mouth: Normal oral and palatal mucosa present Eyes EOM: EOMs intact bilaterally Neck Neck: Yes supple Resp Auscultation: clear to auscultation bilaterally Cardio Jugular venous distension: no JVD Rate: regular rate GI Palpation (GI): Soft to palpation Auscultation: normal bowel sounds General: Yes no CVA tenderness Back/Spine/Pelvis Back: no CVA tenderness Skin General skin exam: no rashes or lesions noted Neuro General: patient oriented x3 and moves all extremities Extrem General: Yes no pedal edema Results Reviewed Nephrology Results: Sodium, (135-145) 143 mmol/L 02/23/25 Potassium, (3.3-5.1) 4.4 mmol/L 02/23/25 Chloride, (96-108) 107 mmol/L 02/23/25 Carbon Dioxide, (22-29) 29 mmol/L 02/23/25 BUN, (9-16) 14 mg/dL 02/23/25 Creatinine, (0.5-1.4) 1.09 mg/dL 02/23/25 Urine Creatinine 206.35 mg/dL 11/16/24 Protein/Creatinin Ratio, (<0.2) 0.28 H 11/16/24 Assessment & Plan Assessment & Plan (1) CKD (chronic kidney disease) stage 3, GFR 30-59 ml/min: Code(s): N18.30 - Chronic kidney disease, stage 3 unspecified Category: Medical Qualifiers: Chronic kidney disease stage 3 subtype: stage 3a (GFR 45-59) Qualified Code(s): N18.31 - Chronic kidney disease, stage 3a (2) Essential hypertension: Code(s): I10 - Essential (primary) hypertension Category: Medical (3) Proteinuria: Code(s): R80.9 - Proteinuria, unspecified Category: Medical Qualifiers: Proteinuria type: other Qualified Code(s): R80.8 - Other proteinuria Won Shook has CKD 3 with hypertension on a back drop of H/O bladder tumor. He is a pre diabetic. I asked him to abstain from NSAID's and maintain good hydration. I reviewed extensive work up including 24 hour urine for protein. He should continue losartan 25 mg twice a day. I reviewed his USS from last year which I shall repeat for follow up of his renal cysts. I may increase his losartan and back off on losartan , with time. He will be a good candidate for Jardiance. All questions answered. Orders: Orders Protein Creatinine Ratio, Ur 6 Months I10 - Essential (primary) hypertension, N18.31 - Chronic kidney disease, stage 3a, R80.8 - Other proteinuria Blood Urea Nitrogen 6 Months I10 - Essential (primary) hypertension, N18.31 - Chronic kidney disease, stage 3a, R80.8 - Other proteinuria Electrolytes 6 Months I10 - Essential (primary) hypertension, N18.31 - Chronic kidney disease, stage 3a, R80.8 - Other proteinuria Creatinine 6 Months I10 - Essential (primary) hypertension, N18.31 - Chronic kidney disease, stage 3a, R80.8 - Other proteinuria Coding Level of Care Code Est Pt Level 4 (91238) Diagnoses Stage 3a chronic kidney disease N18.31 Chronic kidney disease stage 3 subtype: stage 3a (GFR 45-59) Essential hypertension I10 Other proteinuria R80.8 Proteinuria type: other
--- OUTSIDE RECORDS SUMMARY | 2025-02-27 10:20 | XMS_ITS | Clinical Summary ---
Author Organization [address] [facility] Address [address] [place] [address] Phone Care Team Providers Care Furnace Builder Name Role Phone Eugenia Sparrow MD Primary Care Provider [phone] Allergies Active Allergy Reactions Criticality Noted Date [...] 01/23/2018 Zoster Vaccines (1 of 2) 01/23/2018 Hepatitis B Vaccines (2 of 3 - 19+ 3-dose series) 04/03/2019 03/06/2019 Cholesterol Screening (Lipid Panel) 07/11/2022 HIV Screening 07/11/2022 Hepatitis C Screening 07/11/2022 Social Influencers of Health Screening 07/11/2022 Hypertension/CHF/CAD Annual BMP Blood Test 07/16/2022 10/31/2020, 10/30/2020, 10/23/2020 COVID-19 Vaccine (3 - 2023-2 5 season) 2024 08/31/2020, 08/03/2020 Depression Screening 08/02/2024 Influenza Vaccine (#1) 2025 [...] Maintenance Results * COLONOSCOPY Anesthesia - MAC; [facility] ENDOSCOPY (10/05/2024 2:13 PM EST) Anatomical Region [...] surveillance. Narrative 10/05/2024 2:15 PM EST [facility] GI Patient Name: Boone Gonzales [...] without abnormality. Procedure Code(s): --- Professional --- 20152, Colonoscopy, flexible; with removal of tumor(s), polyp(s), or other lesion(s) by snare technique 65584, 59, Colonoscopy, flexible; with biopsy, single or multiple Diagnosis Code(s): --- Professional --- Z86.010, Personal history of colonic polyps D12.8, Benign neoplasm of rectum D12.3, Benign neoplasm of transverse colon (hepatic flexure or splenic flexure) CPT copyright 2020 [employer]. All rights reserved. The codes documented in this report are preliminary and upon university controller review may be revised to meet current compliance requirements. MD Pedro Luis Kasper MD 10/05/2024 2:15:09 PM This report has been signed electronically.Pedro Luis Tsai MD Number of Addenda: 0 Note Initiated On: 10/05/2024 1:50 PM Scope In: Scope Out: Endoscopy Department at [facility] - [address] [place] [phone] Procedure Note Pedro Luis Tsai MD - 10/05/2024 [facility] GI Patient Name: Boone Gonzales [...] without abnormality. Procedure Code(s): --- Professional --- 59035, Colonoscopy, flexible; with removal of tumor(s), polyp(s), or other lesion(s) by snare technique 89973, 59, Colonoscopy, flexible; with biopsy,single or multiple Diagnosis Code(s): --- Professional --- Z86.010, Personal history of colonic polyps D12.8, Benign neoplasm of rectum D12.3, Benign neoplasm of transverse colon (hepatic flexure or splenic flexure) CPT copyright 2020 [employer]. All rights reserved. The codes documented in this report are preliminary and upon university controller reviewmay be revised to meet current compliance requirements. MD Pedro Luis Kasper MD 10/05/2024 2:15:09 PM This report has been signed electronically.Pedro Luis Tsai MD Number of Addenda: 0 Note Initiated On: 10/05/2024 1:50 PM Scope In: Scope Out: Endoscopy Department at [facility] - [address] [place] [phone] IMPRESSION: - One 6 mm polyp in [...] Most Recently Relevant to Health Maintenance Insurance [facility] PL[facility] Care Teams Furnace Builder Relationship Specialty Start Date End Date Eugenia Sparrow MD [address] [place] [phone] PCP - General Internal Medicine 08/22/24
--- OUTSIDE RECORDS SUMMARY | 2025-02-27 10:20 | XMS_ITS | Clinical Summary ---
Author Organization [employer] [facility] Address [address] [place] [address] Care Team Providers Care Circular Knitter Name Role Phone Tamara Short MD Primary [...] age to complete this topic Care Teams Circular Knitter Relationship Specialty Start Date End Date Tamara Short MD [address] [place] [address] PCP - General Internal Medicine 11/25/17
[2025-02-27 10:21] VITALS: BP 150/90; PULSE 69; O2SAT 97; BMI 28.6
== END 2025-02-27 10:45 | disposition home or self-care (01) ==
LOC: HO.HKAS 09:46
PROVIDERS: PCP Internal Medicine; Visit Provider Internal Medicine Nephrology
DX: N18.31 Chronic kidney disease, stage 3a (principal); I10 Essential (primary) hypertension; R80.8 Other proteinuria
CPT/HCPCS: 99214

== ENCOUNTER → 2025-02-27 09:45 | Outpatient (BNVA) | payer OTHER, SELFPAY | PROVIDERS: PCP Internal Medicine; Visit Provider Internal Medicine Nephrology | DX: N18.31 Chronic kidney disease, stage 3a (principal); I10 Essential (primary) hypertension; R73.03 Prediabetes; R80.8 Other proteinuria | CPT/HCPCS: 99212 ==

== ENCOUNTER 2025-04-05 10:53 | Outpatient (AMB) | payer OTHER, SELFPAY ==
--- NOTE | 2025-04-05 11:24 | AM.OFFWIN_ITS ---
Intake Vital Signs 04/05/25 11:25 Height 5 ft 10 in Weight 199 lb BMI 28.6 BP 128/80 Blood Pressure Location Rt brachial Position Sitting Pulse 75 Pulse Source Pulse Oximeter Temp 98.5 F Temp Source Oral Pulse Oximetry (%) 96 Oxygen Delivery Method Room Air Intake Visit Reasons: ep mid back pain for a week Intake Note: pt presents with pain from left neck to left upper back for a week- denies injury Patient Tobacco Use Status: Never used Tobacco Allergies Penicillins Allergy (Severe, Verified 04/05/25 11:26) Anaphylaxis furosemide (From Lasix) Allergy (Intermediate, Verified 04/05/25 11:26) hive Do you need a note to return to daycare/school/sports/work: Yes HPI HPI Comments History of Present Illness0 Details 55 y/o Male patient who presents to the walk in clinic with c/o Left sided Thoracic back pain for 1 week. Denies injury or trauma to the back. [facility] Medical History (Updated 04/05/25 @ 11:49 by Bella Miguel NP) Acute thoracic back pain Periorbital edema of right eye Rheumatoid arthritis Rash Hypothyroid HTN (hypertension) Nocturnal hypoxemia AMANDEEP (obstructive sleep apnea) Obesity (BMI 30-39.9) Encounter to establish care Surgical History H/O transurethral resection of bladder tumor (TURBT) History of colonoscopy Family History Mother Breast cancer Father Heart attack CKD (chronic kidney disease) requiring chronic dialysis Brother No problems noted. Sister No problems noted. Sister No problems noted. Daughter No problems noted. Daughter No problems noted. Social History Housing: House Alcohol intake: current Alcohol intake frequency: a few times a month Alcohol type: wine Patient Tobacco Use Status: Never used Tobacco e-Cigarette/Vaping Use: Never Used Second Hand Smoke Exposure: No service: No Current occupational status: employed Current occupational exposures/hazards: No Cognitive needs: No Hearing needs: No Vision needs: No Review of Systems Const All systems reviewed & are unremarkable except as noted in HPI and below Physical Exam Vital Signs: Last Vital Signs Temp 98.5 F 04/05/25 11:25 Pulse 75 04/05/25 11:25 BP 128/80 04/05/25 11:25 Pulse Ox 96 04/05/25 11:25 Oxygen Delivery Method Room Air 04/05/25 11:25 BMI result Body Mass Index 28.6 Const General: no acute distress Nutritional Appearance: overweight Orientation/consciousness: patient oriented x3 Back/Spine/Pelvis Thoracic/Lumbar Spine: thoracic and lumbar spine normal to inspection, thoraco- lumbar ROM normal, thoraco-lumbar spasm and thoracic spinal tenderness Neuro General: patient oriented x3 Psych Speech and movement: Normal speech and movement present Assessment & Plan Assessment & Plan (1) Acute thoracic back pain: Code(s): M54.6 - Pain in thoracic spine Qualifiers: Back pain laterality: left Qualified Code(s): M54.6 - Pain in thoracic spine Plan: Ordered Flexeril and NSAIDs Ice/hot Rest OTC Lidocaine patches for pain relief. Medications: New cyclobenzaprine 10 mg PO BEDTIME 20 tabs 0RF M54.6 - Pain in thoracic spine meloxicam 7.5 mg PO DAILY 20 tabs 0RF 7 days M54.6 - Pain in thoracic spine Changed From acetaminophen 1,000 mg (2 x 500 mg) PO Q6H 30 days PRN 240 tabs 1RF pain M54.6 - Pain in thoracic spine To acetaminophen 1,000 mg (2 x 500 mg) PO Q6H 30 tabs 1RF pain M54.6 - Pain in thoracic spine Coding Level of Care Code Est Pt Level 4 (22859) Diagnoses Acute left-sided thoracic back pain M54.6 Back pain laterality: left Time Spent (min) 20
[2025-04-05 11:25] VITALS: BP 128/80; PULSE 75; TEMP 36.9; O2SAT 96; BMI 28.6
--- OUTSIDE RECORDS SUMMARY | 2025-04-05 12:30 | XMS_ITS | Clinical Summary ---
Author Organization [facility] Address [address] [place] [address] Care Team Providers Care Ferryboat Operator Helper Name Role Phone Tamara Short MD Primary [...] age to complete this topic Care Teams Ferryboat Operator Helper Relationship Specialty Start Date End Date Tamara Short MD [address] [facility] [place] [address] PCP - General Internal Medicine 11/25/17
--- OUTSIDE RECORDS SUMMARY | 2025-04-05 12:30 | XMS_ITS | Clinical Summary ---
Author Organization [address] [facility] Address [address] [place] [address] Phone Care Team Providers Care Travel Pta Name Role Phone Eugenia Sparrow MD Primary Care Provider [phone] Allergies Active Allergy Reactions Criticality Noted Date [...] 07/16/2022 10/31/2020, 10/30/2020, 10/23/2020 Depression Screening 08/02/2024 COVID-19 Vaccine (3 - 2024-2 6 season) 2025 08/31/2020, 08/03/2020 Influenza Vaccine (#1) 2025 0, 08/14/2009, 04/29/2009 [...] surveillance. Narrative 10/05/2024 2:[address] [facility] GI Patient Name: Boone Gonzales Procedure [...] without abnormality. Procedure Code(s): --- Professional --- 90503, Colonoscopy, flexible; with removal of tumor(s), polyp(s), or other lesion(s) by snare technique 81358, 59, Colonoscopy, flexible; with biopsy, single or multiple Diagnosis Code(s): --- Professional --- Z86.010, Personal history of colonic polyps D12.8, Benign neoplasm of rectum D12.3, Benign neoplasm of transverse colon (hepatic flexure or splenic flexure) CPT copyright 2020 [employer]. All rights reserved. The codes documented in this report are preliminary and upon program manager review may be revised to meet current compliance requirements. MD Pedro Luis Kasper MD 10/05/2024 2:15:09 PM This report has been signed electronically.Pedro Luis Tsai MD Number of Addenda: 0 Note Initiated On: 10/05/2024 1:50 PM Scope In: Scope Out: Endoscopy Department at [facility] - [address] [place] [phone] Procedure Note Pedro Luis Tsai MD - 10/05/2024 [facility] GI Patient Name: Boone Gonzales Procedure [...] without abnormality. Procedure Code(s): --- Professional --- 37142, Colonoscopy, flexible; with removal of tumor(s), polyp(s), or other lesion(s) by snare technique 62260, 59, Colonoscopy, flexible; with biopsy,single or multiple Diagnosis Code(s): --- Professional --- Z86.010, Personal history of colonic polyps D12.8, Benign neoplasm of rectum D12.3, Benign neoplasm of transverse colon (hepatic flexure or splenic flexure) CPT copyright 2020 [employer]. All rights reserved. The codes documented in this report are preliminary and upon program manager reviewmay be revised to meet current compliance requirements. MD Pedro Luis Kasper MD 10/05/2024 2:15:09 PM This report has been signed electronically.Pedro Luis Tsai MD Number of Addenda: 0 Note Initiated On: 10/05/2024 1:50 PM Scope In: Scope Out: Endoscopy Department at [facility] - [address] [place] [phone] IMPRESSION: - One 6 mm polyp in [...] [facility] Care Teams Travel Pta Relationship Specialty Start Date End Date Eugenia Sparrow MD [address] [place] [phone] PCP - General Internal Medicine 08/22/24
== END 2025-04-05 11:56 | disposition home or self-care (01) ==
PROVIDERS: PCP Internal Medicine; Visit Provider Nurse Practitioner Family
DX: M54.6 Pain in thoracic spine (principal)

== ENCOUNTER → 2025-04-05 10:53 | Outpatient (BNVA) | payer OTHER, SELFPAY | PROVIDERS: PCP Internal Medicine; Visit Provider Nurse Practitioner Family | DX: M54.6 Pain in thoracic spine (principal) | CPT/HCPCS: 99212 ==